=== PATIENT | female | born 1950 | race Caucasian/White ===

== ENCOUNTER 2024-11-01 08:21 | Outpatient (AMB) | payer MEDICARE, OTHER, SELFPAY ==
--- NOTE | 2024-11-01 08:31 | MHC.OFFVIS ---
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 Patient was previously seen at [facility], she was losing weight to proceed with surgery. Due to her insurance they were no longer able to accept patient. Patient reports her current pain level is a 7-8 out of 10 with her right knee is the worse. She has a history of gel and cortisone injections. States last cortisone injection was last November and provided her with temporary relief. She had gel injections years ago while living in [place]. She uses a walker with ambulation. Finds no relief with taking ibuprofen and Tylenol. She would like to discuss moving forward with knee surgery. Hx of spinal stenosis and a vein condition. 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 Conservative management, including gel and cortisone injections, has provided short-term relief, with the last injection being nearly a year ago. Despite efforts, the patient reports that her quality of life is heavily impacted, affecting her ability to complete daily activities such as walking long distances. The pain variably affects both knees, with the right knee predominantly identified as worse, although the patient's subjective experience of pain varies. She describes the pain as extending down the leg to the foot and persisting even while resting in bed. She has a history of hypertension and hypercholesterolemia, with no records of heart or lung disease, and her efforts are presently directed towards weight loss, as her BMI stands at 41, just above the surgical criteria threshold. [facility] Medical History (Updated 11/01/24 @ 09:54 by Estrada Guillen PA-C) Hyperlipidemia Hypertension Surgical History (Updated 11/01/24 @ 08:56 by ROBIN Rodriguez) Hx of removal of cyst Hx of cholecystectomy Social History (Updated 11/01/24 @ 08:57 by ROBIN Rodriguez) Patient Tobacco Use Status: Never used Tobacco Current occupational status: retired Review of Systems Const All systems reviewed & are unremarkable except as noted in HPI and below Physical Exam Vital Signs: BMI result Body Mass Index 41.3 Const General: cooperative and no acute distress Orientation/consciousness: patient oriented x3 Resp Effort & Inspection: normal respiratory effort and able to speak in complete sentences Cardio Peripheral pulses: Peripheral pulses 2+ throughout Neuro General: patient oriented x3 Results Reviewed Results Reviewed: Xrays were obtained in the office today and personally reviewed by me of ora knee show severe joint collapse and [id number]-[id number] contact in both knees with significant arthritis and patellar deterioration. Assessment & Plan Assessment & Plan (1) Osteoarthritis of knees, bilateral: Code(s): M17.0 - Bilateral primary osteoarthritis of knee Category: Medical Plan: The patient will continue efforts to decrease her BMI, aiming to meet criteria for joint replacement surgery. She will engage in pre-surgery rehabilitation therapy sessions to strengthen her musculoskeletal support system. Follow-up with Dr. Arnold is planned within the next three months to reassess her readiness for surgery. The patient recognizes the necessity of close monitoring of her blood pressure and cholesterol, which will be managed by her primary care provider. Given her living arrangements, post-surgery rehabilitation plans have been coordinated to ensure adequate care during recovery, particularly given existing household demands. Orders: Orders XR knee RT 3V Today M17.11 - Unilateral primary osteoarthritis, right knee PT Evaluation and Treatment Today M17.0 - Bilateral primary osteoarthritis of knee XR knee LT 3V Today M25.562 - Pain in left knee Coding Level of Care Code New Pt Level 4 (01405) Complex EM visit Add On G2211 Diagnoses Osteoarthritis of knees, bilateral M17.0
--- OUTSIDE RECORDS SUMMARY | 2024-11-01 08:47 | XMS_ITS ---
Author Organization [facility] [place] Address [address] [place] [address] Care Team Providers Care Composition Roll Maker And Cutter Name Role Phone Nicol Steve MD Primary Care Provider Joanna Brown Unavailable [phone] Allergies Allergen (clinical drug ingredient) Drug/Non Drug Allergy documented on EMR Reaction Allergy Type Onset Date Status Neosporin Unknown Drug Allergy Active Adhesive rash Allergy Active Latex Latex rash Allergy Active REASON FOR VISIT At Risk Footcare, Painful Nail(s) aggrevated by shoes and causing difficulty standing/walking. Medications Medication SIG (Take, Route, Frequency, Duration) Notes Start Date End Date Status amLODIPine Besylate 5 MG 1 tablet Orally Once a day for 30 day(s) Active Omeprazole 40 MG 1 capsule 30 minutes before morning meal Orally Once a day for 30 day(s) Active Mometasone Furoate 50 MCG/ACT 2 sprays in each nostril Nasally Once a day for 30 day(s) Active Pravastatin Sodium 40 MG 1 tablet Orally Once a day for 30 day(s) Active oxyCODONE-Acetaminophen 7.5-325 MG 1 tablet as needed Orally every 6 hrs Active Gabapentin 100 MG 1 capsule Orally Onc e a day Active Clobetasol Propionate 0.05 % 1 application Externally Twice a day for 10 day(s) Active Triamterene-HCTZ 37.5-25 MG 1 tablet in the morning Orally Once a day for 30 day(s) Active Sertraline HCl 50 MG 1 tablet Orally Onc e a day for 30 day(s) Active Zolpidem Tartrate ER 12.5 MG 1 tablet at bedtime as needed Orally Once a day Active Zepbound 2.5 MG/0.5ML 0.5 mL Subcutaneous Active Social History Tobacco Use: Social History Observation Description Date Details (start date - stop date) Never Smoker NA - NA Tobacco use other than smoking: Question Answer Notes Are you an other tobacco user? No Tobacco Control (Standard) Question Answer Notes Tobacco use: Nonsmoker Additional Findings: Tobacco non-user Current no nsmoker AUDIT-C (Standard) Question Answer Notes Did you have a drink contain ing alcohol in the past year? Yes How often did you have a dri nk containing alcohol in the past year? Monthly or less (1 point) How many drinks did you have on a typical day when you were drinking in the past year? 1 or 2 drinks (0 point) How often did you have six o r more drinks on one occasion in the past year? Less than monthly (1 point) Points 2 Interpretation Negative Vital Signs Height 5ft 6in in 10/18/2024 Weight 298 lbs 10/18/2024 BMI 48.09 kg/m2 10/18/2024 Blood pressure systolic 130 mm Hg 10/19/19 25 Blood pressure diastolic 84 mm Hg 025 Encounters Encounter Location Date Provider Diagnosis [facility] [address] [address] 10/18/2024 Joanna Pedro Atherosclerosis of artery of both lower extremities I70.203 ; Tinea unguium B35.1 ; Pain in toe of left foot M79.675 and Pain in toe of right foot M79.674 Assessments Encounter Date Diagnosis (ICD Code) Assessment Notes Treatment Notes Treatment Clinical Notes Section Notes 10/18/2024 Atherosclerosis of artery of both lower extremities (ICD-10 - I70.203) 10/18/2024 Tinea unguium (ICD-10 - B35.1) 10/18/2024 Pain in toe of left foot (ICD-10 - M79.675) 10/18/2024 Pain in toe of right foot (ICD-10 - M79.674) Plan Of Treatment Next Appt Details Follow Up: 2 Months, Reason: Provider Name:Joanna fernandez, 12/27/2024 02:45:00 PM, [address] [place] [address], [place], [address], Procedure Notes * Category Sub-Category Detail Notes Debride Nail 6-10 Nail debridement Due to the cl inical pathology outlined in the exam findings, performance of this nail treatment is medically necessary as its management by an unskilled/untrained nonprofessional would put this patients foot and overall health at risk. Therefore, debridement to affected nail(s), as described in exam ( TA, T1, T2, T3, T4, T5, T6, T7, T8, T9, ), was performed exclusively by the physician of record to reduce/remove overall nail length, girth, thickness, subungual debris, and necrotic tissue, by manual and/or electrical means through the use of a nail nipper and/or dremel-type air grinder, to a more viable healthy nail plate or bed tissue 6-10 nails in total. Silver nitrate was used for any petechial bleeding as necessary. Definitive antifungal treatment options, both pharmaceutical and surgical, have been reviewed and discussed with the patient. The patient solely prefers the use of intermittent/as needed professional debridement services for their nail condition and understands the need for additional periodic treatments to maintain effectiveness in symptomatic relief - 84030 Keratoma Treatment Parring or Cutting o f Benign Hyperkeratotic Lesion(s) (-57) More than 4 Lesions - Due to the at risk nature of the patients medical condition as documented in the exam findings, performance of this keratoderma treatment is medically necessary as its management by an unskilled/untrained nonprofessional would put this patients foot and overall health at risk. Therefore, the benign hyperkeratotic lesions, ( 6 ) in total, locations as stated and described in the exam ( SUB MTH (s), 1, 5, B/L, Heels B/L ), were pared, and/or cut utilizing a sterile 15 blade, tissue nippers, and/or power dremel instrumentation by the physician of record - 27186 Progress Notes * Caroline YBARRARamsesOB:[birth year] (74 yo F)Acc No.[id number]:10/18/2024 Progress Note Patient:?Mercedez YBARRA Provider:?Joanna Pedro DPM :1950???Age:74 Y???Sex:Female D ate:10/18/2024 Address:[address] [place] [address], [id number] Pcp:Nicol Steve MD Subjective: * Chief Complaints: * ???At Risk FootcarePainful N ail(s) aggrevated by shoes and causing difficulty standing/walking. * HPI: ???At Risk footcare:?Pt States Last PCP Visit:?Date?10/06/2024 * ROS:?General/Constitutional:?Nausea?denies.?Vomiting?denies.?Hunger Thirst?denies.?Loss appetite?denies.?Chills?denies.?Fatigue?denies.?Fever?denies.?Night Sweats?denies.?Unexplained weight loss?denies.?Unexplained weight gain?denies.?HEENTM:?Dentures?denies.?Dizziness?denies.?Glasses/contacts?admits.?Retinopathy?de nies.?Blurred/double vision?denies.?TMJ?denies.?Discharge/drainage?denies.?Implants?denies.?Sore throat?denies.?Dental implants?denies.?Hard of hearing ?denies.?Difficulty chewing/swallowing/speaking?denies.?Nose bleeds?denies.?Sore mouth?denies.?Respiratory:?On Oxygen?denies.?Pneumonia/pleurisy?denies.?Bronchitis?denies.?Emphysema?denies.?C oughing?denies.?Cough blood?denies.?Shortness of breath?denies.?Wheezing?denies.?Cardiovascular:?Pacemaker?denies.?MVP?denies.?WPW?denies.?CHF?denies.?Heart attack?denies.?Septal defect?denies.?Rapid beat?denies.?Chest pain ?denies.?Atrial Fib.?denies.?Murmur/Palpitations?denies.?Gastrointestinal:?Hemorrhoids?denies.?Stomach/Abdominal pain?denies.?Dark blood stool?denies.?Irritable bowel ?denies.?Constipation?alternating with diarrhea, admits.?Diarrhea?admits.?Hematology:?Swelling?admits.?Clots?denies.?Varicose Veins?denies.?Bruising?denies.?Bleeding problem?denies.?Genitourinary:?Blood urine?denies.?Frequent/Painfu/urination/bladder control?frequently, admits.?Kidney stones?denies.?Infection (UTI)?denies.?Nephropathy?denies.?sex trans dis (STD)?denies.?Prostate?denies.?Musculoskeletal:?Hammertoes?denies.?Bunions?denies.?Back Pain?denies.?Muscle Cramps/ Resting?denies.?Muscle cramps / walking?denies.?Generalized aches and pains?denies.?Weakness?denies.?Integ.:?Joyner?denies.?Scars?denies.?Corns/calluses?denies.?Ingrown nails?denies.?Painful nails?denies.?Open Sores?denies.?Rashes?denies.?Neurologic:?Difficulty sleeping?denies.?Brain disorder?denies.?Numbness?admits.?Balance trouble?denies.?Confusion?denies.?Fainting/blackouts?denies.?Tingling?denies.?Tr emors?denies.? * Medical History:? * Surgical History:?cholecyste ctomy 1993Breast Surgery, cyst * Hospitalization/Major Diagno stic Procedure:?Denies Past Hospitalization * Family History:?Mother: dece ased.?Father: .?Maternal aunt: colon cancer.? * Social History:?Tobacco Use:?Tobacco use other than smoking?Are you an other tobacco user??No ?Tobacco Control (Standard)?Tobacco use:?Nonsmoker ?Additional Findings: Tobacco non-user?Current nonsmoker ???Drugs/Alcohol:?Drugs?Have you used drugs other than those for medical reasons in the past 12 months??No ???Miscellaneous:?Caffeine: yes, frequency:, 1-2 cups decaff per day. ?Children: yes. ?Exercise: yes, walking. ?Marital status: . ?Occupation: Retired. ???Drug/Alcohol:?AUDIT-C (Standard)?Did you have a drink containing alcohol in the past year??Yes ?How often did you have a drink containing alcohol in the past year??Monthly or less (1 point) ?How many drinks did you have on a typical day when you were drinking in the past year??1 or 2 drinks (0 point) ?How often did you have six or more drinks on one occasion in the past year??Less than monthly (1 point) ?Points?2 ?Interpretation?Negative * Medications:?TakingZepbound 2.5 MG/0.5ML Solution Auto-injector 0.5 mL Subcutaneous Gabapentin 100 MG Capsule 1 capsule Orally Once a day Clobetasol Propionate 0.05 % Ointment 1 application Externally Twice a day Zolpidem Tartrate ER 12.5 MG Tablet Extended Release 1 tablet at bedtime as needed Orally Once a day Triamterene- HCTZ 37.5-25 MG Tablet 1 tablet in the morning Orally Once a day Sertraline HCl 50 MG Tablet 1 tablet Orally Once a day Pravastatin Sodium 40 MG Tablet 1 tablet Orally Once a day oxyCODONE-Acetaminophen 7.5-325 MG Tablet 1 tablet as needed Orally every 6 hrs Omeprazole 40 MG Capsule Delayed Release 1 capsule 30 minutes before morning meal Orally Once a day Mometasone Furoate 50 MCG/ACT Suspension 2 sprays in each nostril Nasally Once a day amLODIPine Besylate 5 MG Tablet 1 tablet Orally Once a day Medication List reviewed and reconciled with the patientTaking Zepbound 2.5 MG/0.5ML Solution Auto-injector 0.5 mL Subcutaneous Taking Gabapentin 100 MG Capsule 1 capsule Orally Once a day Taking Clobetasol Propionate 0.05 % Ointment 1 application Externally Twice a day Taking Zolpidem Tartrate ER 12.5 MG Tablet Extended Release 1 tablet at bedtime as needed Orally Once a day Taking Triamterene-HCTZ 37.5-25 MG Tablet 1 tablet in the morning Orally Once a day Taking Sertraline HCl 50 MG Tablet 1 tablet Orally Once a day Taking Pravastatin Sodium 40 MG Tablet 1 tablet Orally Once a day Taking oxyCODONE-Acetaminophen 7.5-325 MG Tablet 1 tablet as needed Orally every 6 hrs Taking Omeprazole 40 MG Capsule Delayed Release 1 capsule 30 minutes before morning meal Orally Once a day Taking Mometasone Furoate 50 MCG/ACT Suspension 2 sprays in each nostril Nasally Once a day Taking amLODIPine Besylate 5 MG Tablet 1 tablet Orally Once a day Medication List reviewed and reconciled with the patient * Allergies:?Adhesive: rashLat ex: rashNeosporinyes[Allergies Verified] Objective: * Vitals:?Ht: 5ft 6in, Wt: 298 , BMI: 48.09, Shoe size: 9W, BP: 130/84 mm Hg, Ht- cm: 167.64 cm, Wt-k.17 kg. * Examination: ???Vascular: ?DP PULSES (B):? 1/4, B/L.?PT PULSES (B):? 0/4, B/L.?CAPILLARY FILL TIME:? delayed, all digits, B/L.?TROPHIC CONDITION-TEXTURE/ELASTICITY/TURGOR/HAIR GROWTH (B):? decreased, B/L.?TEMPERTURE GRADIENT (C):? decreased, cool to cool, proximal to distal, B/L.?EDEMA (C):? 3/4, pitting, B/L, Feet, Ankle(s), Leg(s).?CLAUDICATION (C):?denies, B/L.?REST PAIN:?denies, B/L.?BHANU'S SIGN:?absent, B/L.?PALPABLE CORDS:?absent, B/L.?Nails: ?NAILS are:? Elongated, overgrown, dystrophic, lytic, greater than 3mm thick, discolored and friable with crumbly malodorous subungual debris, with pain on palpation,,TA, T1, T2, T3, T4, T5, T6, T7, T8, T9.?Dermatologic: ?SKIN FINDINGS:? Skin exam reveals Keratotic lesion(s) located at, Medial plantar?SUB MTH (s), 1, 5, B/L, Heels B/L.? Assessment: * Assessment: 1.?Atherosclerosis of artery of both lower extremities - I70.203???2.?Tinea unguium - B35.1 (Primary)???3.?Pain in toe of left foot - M79.675???4.?Pain in toe of right foot - M79.674??? Plan: * Treatment: * Procedures:?Debride Nail 6-10:?Nail debridement?Due to the clinical pathology outlined in the exam findings, performance of this nail treatment is medically necessary as its management by an unskilled/untrained nonprofessional would put this patients foot and overall health at risk. Therefore, debridement to affected nail(s), as described in exam ( TA, T1, T2, T3, T4, T5, T6, T7, T8, T9, ), was performed exclusively by the physician of record to reduce/remove overall nail length, girth, thickness, subungual debris, and necrotic tissue, by manual and/or electrical means through the use of a nail nipper and/or dremel-type air grinder, to a more viable healthy nail plate or bed tissue 6- 10 nails in total. Silver nitrate was used for any petechial bleeding as necessary. Definitive antifungal treatment options, both pharmaceutical and surgical, have been reviewed and discussed with the patient. The patient solely prefers the use of intermittent/as needed professional debridement services for their nail condition and understands the need for additional periodic treatments to maintain effectiveness in symptomatic relief - 40526.?Keratoma Treatment:?Parring or Cutting of Benign Hyperkeratotic Lesion(s)?(-57) More than 4 Lesions - Due to the at risk nature of the patients medical condition as documented in the exam findings, performance of this keratoderma treatment is medically necessary as its management by an unskilled/untrained nonprofessional would put this patients foot and overall health at risk. Therefore, the benign hyperkeratotic lesions, ( 6 ) in total, locations as stated and described in the exam (?SUB MTH (s),?1,?5,?B/L, Heels B/L?), were pared, and/or cut utilizing a sterile 15 blade, tissue nippers, and/or power dremel instrumentation by the physician of record - 00325.? * Procedure Codes:?92453 DEBRI DE NAIL, 6 OR MORE, Modifiers: XS 26214 TRIM SKIN LESIONS, OVER 4, Modifiers: XS , Q8 * Follow Up:?2 Months * Images: * Sign off status: Completed true * Provider:?Joanna Pedro, AZUCENA Date:? Generated for Lilliana trevizo/Christopher/Esperanza on:?11/01/2024 08:47 AM EDT History and Physical Notes * HPI (History of Present Illness) Category Sub-Category Detail Notes Category Not es At Risk footcare Pt States Last PCP Visit: Date: Examination Category Sub-Category Detail Notes Category Not es Dermatologic SKIN FINDINGS: Skin exam reveal s Keratotic lesion(s) located at, Medial plantar SUB MTH (s), 1, 5, B/L, Heels B/L Vascular DP PULSES (B): 1/4, B/L PT PULSES (B): 0/4, B/L CAPILLARY FILL TIME: delayed, all digits , B/L TEMPERTURE GRADIENT (C): decreased, cool to cool, proximal to distal, B/L TROPHIC CONDITION-TEXTURE/ELASTICITY/TURGOR/HAIR GROWTH (B): decreased, B/L EDEMA (C): 3/4, pitting, B/L, F eet, Ankle(s), Leg(s) CLAUDICATION (C): denies, B/L REST PAIN: denies, B/L BHANU'S SIGN: absent, B/L PALPABLE CORDS: absent, B/L Nails NAILS are: Elongated, overg rown, dystrophic, lytic, greater than 3mm thick, discolored and friable with crumbly malodorous subungual debris, with pain on palpation,,TA, T1, T2, T3, T4, T5, T6, T7, T8, T9
--- OUTSIDE RECORDS SUMMARY | 2024-11-01 08:47 | XMS_ITS ---
Author Name [facility] Organization Unknown Encounters Encounter Type Encounter Reason Primary Diagnosis Location Date Ambulatory [facility] [place] 09/10/2024 Ambulatory [facility] [place] 08/24/2024 Ambulatory [facility] [place] 08/24/2024
--- OUTSIDE RECORDS SUMMARY | 2024-11-01 08:47 | XMS_ITS ---
Author Organization [facility] [place] Address [address] [place] [address] Care Team Providers Care Spray Gun Operator Name Role Phone Nicol Steve MD Primary Care Provider Joanna Brown Unavailable [phone] Allergies Allergen (clinical drug ingredient) Drug/Non Drug Allergy documented on EMR Reaction Allergy Type Onset Date Status Neosporin Unknown Drug Allergy Active Adhesive rash Allergy Active Latex Latex rash Allergy Active REASON FOR VISIT At Risk Footcare, Painful Nail(s) aggrevated by shoes and causing difficulty standing/walking. Medications Medication SIG (Take, Route, Frequency, Duration) Notes Start Date End Date Status Pravastatin Sodium 40 MG 1 tablet Orally Once a day for 30 day(s) Active Sertraline HCl 50 MG 1 tablet Orally Onc e a day for 30 day(s) Active Triamterene-HCTZ 37.5-25 MG 1 tablet in the morning Orally Once a day for 30 day(s) Active Zolpidem Tartrate ER 12.5 MG 1 tablet at bedtime as needed Orally Once a day Active oxyCODONE-Acetaminophen 7.5-325 MG 1 tablet as needed Orally every 6 hrs Active Clobetasol Propionate 0.05 % 1 application Externally Twice a day for 10 day(s) Active Gabapentin 100 MG 1 capsule Orally Onc e a day Active amLODIPine Besylate 5 MG 1 tablet Orally Once a day for 30 day(s) Active Mometasone Furoate 50 MCG/ACT 2 sprays in each nostril Nasally Once a day for 30 day(s) Active Omeprazole 40 MG 1 capsule 30 minutes before morning meal Orally Once a day for 30 day(s) Active Social History Tobacco Use: Social History Observation Description Date Details (start date - stop date) Former Smoker NA - NA Tobacco Use/Smoking Question Answer Notes Are you a: former smoker Additional Findings: Tobacco Non-User Current no n-smoker Alcohol Screen Question Answer Notes Did you have a drink contain ing alcohol in the past year? Yes How often did you have a dri nk containing alcohol in the past year? 2 to 4 times a month (2 points) Points 2 Interpretation Negative Tobacco use other than smoking: Question Answer Notes Are you an other tobacco user? No Vital Signs Height 5ft 6in in 04/29/2024 Weight 300 lbs 04/29/2024 BMI 48.42 kg/m2 04/29/2024 Encounters Encounter Location Date Provider Diagnosis [facility] [address] [place] [address] 04/29/2024 Joanna Mayela Pain in toe of left foot M79.675 ; Atherosclerosis of artery of both lower extremities I70.203 ; Pain in toe of right foot M79.674 and Tinea unguium B35.1 Assessments Encounter Date Diagnosis (ICD Code) Assessment Notes Treatment Notes Treatment Clinical Notes Section Notes 04/29/2024 Pain in toe of left foot (ICD-10 - M79.675) 04/29/2024 Atherosclerosis of artery of both lower extremities (ICD-10 - I70.203) 04/29/2024 Pain in toe of right foot (ICD-10 - M79.674) 04/29/2024 Tinea unguium (ICD-10 - B35.1) Plan Of Treatment Next Appt Details Follow Up: 3 Months, Reason: Provider Name:Joanna fernandez, 12/27/2024 02:45:00 PM, [address] [facility], [place], [address], Procedure Notes * Category Sub-Category Detail Notes Debride Nail 6-10 Nail debridement Nail debridem ent performed extensively to reduce/remove overall nail length and girth, subungual debris, and necrotic tissue, by manual and electrical means with use of a nail nipper and/or dremel, to more viable healthy nail plate or bed tissue 6-10. Silver nitrate used for any petechial bleeding as necessary. Patient chooses, no pharmaceutical tx (31249) Keratoma Treatment Parring or Cutting o f Benign Hyperkeratotic Lesion(s) 73228 ( More than 4 Lesions ) - The Benign hyperkeratotic lesions, as described above were pared, and/or cut utilizing a sterile 15 blade, tissue nippers, and/or jacmel, Q8 Progress Notes * Gayle YBARRAOB:[birth year] (73 yo F)Acc No.[id number]:04/29/2024 Progress Note Patient:?Mercedez Ybarra Provider:?Joanna Pedro DPM :1950???Age:73 Y???Sex:Female D ate:04/29/2024 Address:[address] [place], [place] [address] Pcp:Nicol Steve MD Subjective: * Chief Complaints: * ???At Risk FootcarePainful N ail(s) aggrevated by shoes and causing difficulty standing/walking. * HPI: ???At Risk footcare:?Pt States Last PCP Visit:?Date?04/29/2024 * ROS:?General/Constitutional:?Nausea?denies.?Vomiting?denies.?Hunger Thirst?denies.?Loss appetite?denies.?Chills?denies.?Fatigue?denies.?Fever?denies.?Night Sweats?denies.?Unexplained weight loss?denies.?Unexplained [...] 1993Breast Surgery, cyst * Hospitalization/Major Diagno stic Procedure:?No Hospitalization History. * Family History:?Mother: dece ased.?Father: .?Maternal aunt: colon cancer.? * Social History:?Tobacco Use:?Tobacco Use/Smoking?Are you a:?former smoker ?Additional Findings: Tobacco Non-User?Current non-smoker ?Tobacco use other than smoking?Are you an other tobacco user??No ???Drugs/Alcohol:?Drugs?Have you used drugs other than those for medical reasons in the past 12 months??No ?Alcohol Screen?Did you have a drink containing alcohol in the past year??Yes ?How often did you have a drink containing alcohol in the past year??2 to 4 times a month (2 points) ?Points?2 ?Interpretation?Negative ???Miscellaneous:?Caffeine: yes, frequency:, 1-2 cups decaff per day. ?Children: yes. ?Exercise: yes, walking. ?Marital status: . ?Occupation: Retired. * Medications:?TakingGabapenti n 100 MG Capsule 1 capsule Orally Once a dayClobetasol Propionate 0.05 % Ointment 1 application Externally Twice a dayZolpidem Tartrate ER 12.5 MG Tablet Extended Release 1 tablet at bedtime as needed Orally Once a dayTriamterene-HCTZ 37.5-25 MG Tablet 1 tablet in the morning Orally Once a daySertraline HCl 50 MG Tablet 1 tablet Orally Once a dayPravastatin Sodium 40 MG Tablet 1 tablet Orally Once a dayoxyCODONE-Acetaminophen 7.5-325 MG Tablet 1 tablet as needed Orally every 6 hrsOmeprazole 40 MG Capsule Delayed Release 1 capsule 30 minutes before morning meal Orally Once a dayMometasone Furoate 50 MCG/ACT Suspension 2 sprays in each nostril Nasally Once a dayamLODIPine Besylate 5 MG Tablet 1 tablet Orally Once a dayMedication List reviewed and reconciled with the patientTaking Gabapentin 100 MG Capsule 1 capsule Orally Once a dayTaking Clobetasol Propionate 0.05 % Ointment 1 application Externally Twice a dayTaking Zolpidem Tartrate ER 12.5 MG Tablet Extended Release 1 tablet at bedtime as needed Orally Once a dayTaking Triamterene-HCTZ 37.5-25 MG Tablet 1 tablet in the morning Orally Once a dayTaking Sertraline HCl 50 MG Tablet 1 tablet Orally Once a dayTaking Pravastatin Sodium 40 MG Tablet 1 tablet Orally Once a dayTaking oxyCODONE-Acetaminophen 7.5-325 MG Tablet 1 tablet as needed Orally every 6 hrsTaking Omeprazole 40 MG Capsule Delayed Release 1 capsule 30 minutes before morning meal Orally Once a dayTaking Mometasone Furoate 50 MCG/ACT Suspension 2 sprays in each nostril Nasally Once a dayTaking amLODIPine Besylate 5 MG Tablet 1 tablet Orally Once a dayMedication List reviewed and reconciled with the patient * Allergies:?Adhesive: rashLat ex: rashNeosporinyes[Allergies Verified] Objective: * Vitals:?Ht: 5ft 6in, Wt:300, BMI:48.42, Shoe size: 9W, Ht-cm: 167.64 cm, Wt-k.08 kg. * Examination: ???Ophthalmology Referral: ?DIABETES EYE EXAM?Diabetic Retinopathy Screening:?Yes ?Findings of Diabetic Eye Exam:?no retinopathy?Vascular: ?DP PULSES(B):? 1/4, B/L.?PT PULSES(B):? 0/4, B/L.?CAPILLARY FILL TIME:? delayed, all digits, B/L.?TROPHIC CONDITION-TEXTURE/ELASTICITY/TURGOR/HAIR GROWTH(B):? decreased, B/L.?TEMPERTURE GRADIENT(C):? decreased, cool to cool, proximal to distal, B/L.?EDEMA(C):? 3/4, pitting, B/L, Feet, Ankle(s), Leg(s).?CLAUDICATION(C):?denies, B/L.?REST PAIN:?denies, B/L.?BHANU'S SIGN:?absent, B/L.?PALPABLE CORDS:?absent, B/L.?Nails: ?NAILS are:? Elongated, overgrown, dystrophic, lytic, greater than 3mm thick, discolored and friable with crumbly malodorous subungual debris, with pain on palpation, 1-5 B/L.?Dermatologic: ?SKIN FINDINGS:? Skin exam reveals Keratotic lesion(s) located at, Medial plantar, TA, T5, SUB MTH (s), 1, 5, B/L.? Assessment: * Assessment: 1.?Pain in toe of left foot - M79.675?2.?Atherosclerosis of artery of both lower extremities - I70.203 (Primary)?3.?Pain in toe of right foot - M79.674?4.?Tinea unguium - B35.1? Plan: * Treatment: * Procedures:?Debride Nail 6-10:?Nail debridement?Nail debridement performed extensively to reduce/remove overall nail length and girth, subungual debris, and necrotic tissue, by manual and electrical means with use of a nail nipper and/or dremel, to more viable healthy nail plate or bed tissue 6-10. Silver nitrate used for any petechial bleeding as necessary. Patient chooses, no pharmaceutical tx (95123).?Keratoma Treatment:?Parring or Cutting of Benign Hyperkeratotic Lesion(s)?63479 ( More than 4 Lesions ) - The Benign hyperkeratotic lesions, as described above were pared, and/or cut utilizing a sterile 15 blade, tissue nippers, and/or dremel, Q8.? * Procedure Codes:?91965 DEBRI DE NAIL, 6 OR MORE, Modifiers: XS 16756 TRIM SKIN LESIONS, OVER 4, Modifiers: XS , Q8 * Follow Up:?3 Months * Images: * Sign off status: Completed true * Provider:?Joanna Pedro DPM Date:?09/2023 Generated for Lilliana trevizo/Christophre/Esperanza on:?11/01/2024 08:47 AM EDT History and Physical Notes * HPI (History of Present Illness) Category Sub-Category Detail Notes Category Not es At Risk footcare Pt States Last PCP Visit: Date: Examination Category Sub-Category Detail Notes Category Not es Dermatologic SKIN FINDINGS: Skin exam reveal s Keratotic lesion(s) located at, Medial plantar, TA, T5, SUB MTH (s), 1, 5, B/L Ophthalmology Referral DIABETES EYE EXAM Diabeti c Retinopathy Screening:: Yes Findings of Diabetic Eye Exam:: no retin opathy Vascular DP PULSES (B): 1/4, B/L PT [...] crumbly malodorous subungual debris, with pain on palpation, 1-5 B/L
--- OUTSIDE RECORDS SUMMARY | 2024-11-01 08:48 | XMS_ITS | Patient Health Record ---
Author Organization [facility] [place] Address [address] [place] [address] Care Team Providers Care Aeronautical Project Engineer Name Role Phone Nicol Steve MD Primary Care Provider Joanna Brown Unavailable [phone] Allergies Allergen (clinical drug ingredient) Drug/Non Drug Allergy documented on EMR Reaction Allergy Type Onset Date Status Neosporin Unknown Drug Allergy Active Adhesive rash Allergy Active Latex Latex rash Allergy Active Reason For Referral No Information Medications Medication SIG (Take, Route, Frequency, Duration) Notes Start Date End Date Status Gabapentin 100 MG 1 capsule Orally Onc e a day Active Clobetasol Propionate 0.05 % 1 application Externally Twice a day for 10 day(s) Active amLODIPine Besylate 5 MG 1 tablet Orally Once a day for 30 day(s) Active Zepbound 2.5 MG/0.5ML 0.5 mL Subcutaneous Active Omeprazole 40 MG 1 capsule 30 minutes before morning meal Orally Once a day for 30 day(s) Active Mometasone Furoate 50 MCG/ACT 2 sprays in each nostril Nasally Once a day for 30 day(s) Active Pravastatin Sodium 40 MG 1 tablet Orally Once a day for 30 day(s) Active oxyCODONE-Acetaminophen 7.5-325 MG 1 tablet as needed Orally every 6 hrs Active Triamterene-HCTZ 37.5-25 MG 1 tablet in the morning Orally Once a day for 30 day(s) Active Sertraline HCl 50 MG 1 tablet Orally Onc e a day for 30 day(s) Active Zolpidem Tartrate ER 12.5 MG 1 tablet at bedtime as needed Orally Once a day Active Immunizations Vaccine Route Administration Date Status Commdahiana nts COVID-19 Pfizer BioNTech Vaccine Unknown 10/11/2020 Administered 1st vaccine Influenza Unknown 03/28/2022 Administered Social History Tobacco Use: Social History Observation [...] monthly (1 point) Points 2 Interpretation Negative Problems Problem Type SNOMED Code ICD Code Onset Dates Problem Status W/U Status Risk Notes Problem 694914468 Hammer toe of right foot (M20.41) Active confirmed Problem 733998891 Hammer toe of le ft foot (M20.42) Active confirmed Problem 47334329601179961 Atherosclerosi s of artery of both lower extremities (I70.203) Active confirmed Vital Signs Blood pressure diastolic 84 mm Hg 10/18/2024 Height 5ft 6in in 10/18/2024 Blood pressure systolic 130 mm Hg 10/18/2024 Weight 298 lbs 10/18/2024 BMI 48.09 kg/m2 10/18/2024 Encounters Encounter Location Date Provider Diagnosis [facility] [address] [place] [address] 12/16/2023 Joanna Perica Pain in toe of left foot M79.675 ; Atherosclerosis of artery of both lower extremities I70.203 ; Pain in toe of right foot M79.674 and Tinea unguium B35.[address] [address] 04/29/2024 Joanna Perica Pain in toe of left foot M79.675 ; Atherosclerosis of artery of both lower extremities I70.203 ; Pain in toe of right foot M79.674 and Tinea unguium B35.[address] [place] [address] 08/05/2024 Joanna Pedro Atherosclerosis of artery of both lower extremities I70.203 ; Tinea unguium B35.1 ; Pain in toe of left foot M79.675 and Pain in toe of right foot M79.[address] [address] 10/18/2024 Joanna Pedro Atherosclerosis of artery of both lower extremities I70.203 ; Tinea unguium B35.1 ; Pain in toe of left foot M79.675 and Pain in toe of right foot M79.[address] [address] 03/05/2024 Joanna Pedro Assessments Encounter Date Diagnosis (ICD Code) Assessment Notes Treatment Notes Treatment Clinical Notes Section Notes 12/16/2023 Pain in toe of left foot (ICD-10 - M79.675) 04/29/2024 Pain in toe of left foot (ICD-10 - M79.675) 08/05/2024 Atherosclerosis of artery of both lower extremities (ICD-10 - I70.203) 08/05/2024 Tinea unguium (ICD-10 - B35.1) 10/18/2024 Atherosclerosis of artery of both lower extremities (ICD-10 - I70.203) 08/05/2024 Pain in toe of left foot (ICD-10 - M79.675) 10/18/2024 Tinea unguium (ICD-10 - B35.1) 04/29/2024 Atherosclerosis of artery of both lower extremities (ICD-10 - I70.203) 12/16/2023 Atherosclerosis of artery of both lower extremities (ICD-10 - I70.203) 12/16/2023 Pain in toe of right foot (ICD-10 - M79.674) 04/29/2024 Pain in toe of right foot (ICD-10 - M79.674) 10/18/2024 Pain in toe of left foot (ICD-10 - M79.675) 08/05/2024 Pain in toe of right foot (ICD-10 - M79.674) 10/18/2024 Pain in toe of right foot (ICD-10 - M79.674) 04/29/2024 Tinea unguium (ICD-10 - B35.1) 12/16/2023 Tinea unguium (ICD-10 - B35.1) Plan Of Treatment Next Appt Details Provider Name:Joanna fernandez, 12/27/2024 02:45:00 PM, [address] [facility], [place], [address], Insurance Providers Payer Name Payer Address Payer Phone Subscriber Number Group Number Insured Name Patient Relationship to Insured Coverage Start Date Coverage End Date Medicare National [employer] [address] [place] [address] [id number] Mercedez Hirsch Self - patient is the insured [employer] [address] [place] [address] [id number] Mercedez Hirsch Self - patient is the insured for Life [address] [place] [id number] [phone] [id number] Mike Hirsch Spouse - patient is the spouse of the insured Medical (General) History Medical History History ICD Code osteoarthritis Back pain/Sciatica Cataracts Depression Diverticulosis Gall bladder problems Headaches High blood pressure Sciatica Measles Mumps Chicken pox Surgical History Surgery Date(Month/Year) cholecystectomy 1992 Breast Surgery, cyst
--- OUTSIDE RECORDS SUMMARY | 2024-11-01 08:48 | XMS_ITS ---
Author Organization [facility] [place] Address [address] [place] [address] Care Team Providers Care Bus Person Name Role Phone Nicol Steve MD Primary Care Provider Joanna Brown Unavailable [phone] Allergies Allergen (clinical drug ingredient) Drug/Non Drug [...] as needed Orally every 6 hrs Active amLODIPine Besylate 5 MG 1 tablet Orally Once a day for 30 day(s) Active Omeprazole 40 MG 1 capsule 30 minutes before morning meal Orally Once a day for 30 day(s) Active Mometasone Furoate 50 MCG/ACT 2 sprays in each nostril Nasally Once a day for 30 day(s) Active Triamterene-HCTZ 37.5-25 MG 1 tablet in the morning Orally Once a day for 30 day(s) Active Sertraline HCl 50 MG 1 tablet Orally Onc e a day for 30 day(s) Active Clobetasol Propionate 0.05 % 1 application Externally Twice a day for 10 day(s) Active Zolpidem Tartrate ER 12.5 MG 1 tablet at bedtime as needed Orally Once a day Active Gabapentin 100 MG 1 capsule Orally Onc e a day Active Zepbound 2.5 MG/0.5ML 0.5 [...] No Vital Signs Height 5ft 6in in 08/05/2024 Weight 298 lbs 08/05/2024 BMI 48.09 kg/m2 08/05/2024 Blood pressure systolic 130 mm Hg 08/05/19 25 Blood pressure diastolic 84 mm Hg 025 Encounters Encounter Location Date Provider Diagnosis [facility] [place] [address] 08/05/2024 Joanna Pedro Atherosclerosis of artery of both lower extremities I70.203 ; Tinea unguium B35.1 ; Pain in toe of left foot M79.675 and Pain in toe of right foot M79.674 Assessments Encounter Date Diagnosis (ICD Code) Assessment Notes Treatment Notes Treatment Clinical Notes Section Notes 08/05/2024 Atherosclerosis of artery of both lower extremities (ICD-10 - I70.203) 08/05/2024 Tinea unguium (ICD-10 - B35.1) 08/05/2024 Pain in toe of left foot (ICD-10 - M79.675) 08/05/2024 Pain in toe of right foot (ICD-10 - M79.674) Plan Of Treatment Next Appt Details Follow Up: 3 Months, Reason: Provider Name:Joanna fernandez, 12/27/2024 02:45:00 PM, [address], [place], [address], Procedure Notes * Category Sub-Category Detail Notes [...] use of a nail nipper and/or dremel-type tooth grinder, to a more viable healthy nail [...] to maintain effectiveness in symptomatic relief - 78055 Keratoma Treatment Parring or Cutting o f [...] instrumentation by the physician of record - 17808 Progress Notes * Gayle YBARRAOB:[birth year] (73 yo F)Acc No.[id number]:08/05/2024 Progress Note Patient:?Mercedez YBARRA Provider:?Joanna Pedro DPM :1950???Age:73 Y???Sex:Female D ate:08/05/2024 Address:[address] [place], [place] [id number] Pcp:Nicol Steve MD Subjective: * Chief Complaints: * ???At Risk FootcarePainful N ail(s) aggrevated by shoes and causing difficulty standing/walking. * HPI: ???At Risk footcare:?Pt States Last PCP Visit:?Date?04/29/2024 * ROS:?General/Constitutional:?Nausea?denies, denies.?Vomiting?denies, denies.?Hunger Thirst?denies, denies.?Loss appetite?denies, denies.?Chills?denies, denies.?Fatigue?denies, denies.?Fever?denies, denies.?Night Sweats denies, denies.?Unexplained weight loss?denies, denies.?Unexplained weight gain?denies, denies.?HEENTM:?Dentures?denies, denies.?Dizziness?denies, denies.?Glasses/contacts?admits, admits.?Retinopathy?denies, denies.?Blurred/double vision?denies, denies.?TMJ?denies, denies.?Discharge/drainage?denies, denies.?Implants?denies, denies.?Sore throat?denies, denies.?Dental implants?denies, denies.?Hard of hearing ?denies, denies.?Difficulty chewing/swallowing/speaking?denies, denies.?Nose bleeds?denies, denies.?Sore mouth?denies, denies.?Respiratory:?On Oxygen?denies, denies.?Pneumonia/pleurisy?denies, denies.?Bronchitis?denies, denies.?Emphysema?denies, denies.?Coughing?denies, denies.?Cough blood?denies, denies.?Shortness of breath?denies, denies.?Wheezing?denies, denies.?Cardiovascular:?Pacemaker?denies, denies.?MVP?denies, denies.?WPW?denies, denies.?CHF?denies, denies.?Heart attack?denies, denies.?Septal defect?denies, denies.?Rapid beat?denies, denies.?Chest pain ?denies, denies.?Atrial Fib.?denies, denies.?Murmur/Palpitations?denies, denies.?Gastrointestinal:?Hemorrhoids?denies, denies.?Stomach/Abdominal pain?denies, denies.?Dark blood stool?denies, denies.?Irritable bowel ?denies, denies.?Constipation?alternating with diarrhea, admits, alternating with diarrhea, admits. Diarrhea?admits, admits.?Hematology:?Swelling?admits, admits.?Clots?denies, denies.?Varicose Veins?denies, denies.?Bruising?denies, denies.?Bleeding problem?denies, denies.?Genitourinary:?Blood urine?denies, denies.?Frequent/Painfu/urination/bladder control?frequently, admits, frequently, admits.?Kidney stones?denies, denies.?Infection (UTI)?denies, denies.?Nephropathy?denies, denies.?sex trans dis (STD)?denies, denies.?Prostate?denies, denies.?Musculoskeletal:?Hammertoes?denies, denies.?Bunions?denies, denies.?Back Pain?denies, denies.?Muscle Cramps/ Resting?denies, denies.?Muscle cramps / walking?denies, denies.?Generalized aches and pains?denies, denies.?Weakness?denies, denies.?Integ.:?Joyner?denies, denies.?Scars?denies, denies.?Corns/calluses?denies, denies.?Ingrown nails?denies, denies.?Painful nails?denies, denies.?Open Sores?denies, denies.?Rashes?denies, denies.?Neurologic:?Difficulty sleeping?denies, denies.?Brain disorder?denies, denies.?Numbness?admits, admits.?Balance trouble?denies, denies.?Confusion?denies, denies.?Fainting/blackouts?denies, denies.?Tingling?denies, denies.?Tremors?denies, denies.? * Medical History:? * Surgical History:?cholecyste ctomy [...] walking. ?Marital status: . ?Occupation: Retired. * Medications:?TakingZepbound 2.5 MG/0.5ML Solution Auto-injector 0.5 [...] rashNeosporinyes[Allergies Verified] Objective: * Vitals:?Ht: 5ft 6in, Wt:298, BMI:48.09, Shoe size: 9W, BP:130/84mm Hg, Ht-cm: 167.64 cm, Wt-k.17 kg. * Examination: ???Vascular: [...] 5, B/L, Heels B/L.? Assessment: * Assessment: 1.?Tinea unguium - B35.1 (Pr imary)???2.?Atherosclerosis of artery of both lower extremities - I70.203???3.?Pain in toe of left foot - M79.675???4.?Pain [...] use of a nail nipper and/or dremel-type tooth grinder, to a more viable healthy nail [...] to maintain effectiveness in symptomatic relief - 89740.?Keratoma Treatment:?Parring or Cutting of Benign Hyperkeratotic Lesion(s)?(-57) [...] instrumentation by the physician of record - 08581.? * Procedure Codes:?36922 DEBRI DE NAIL, 6 OR MORE, Modifiers: XS 85214 TRIM SKIN LESIONS, OVER 4, Modifiers: XS , Q8 * Follow Up:?3 Months * Images: * Sign off status: Completed true * Provider:?Joanna Pedro DPM Date:?03/2025 Generated for Lilliana trevizo/Christopher/Esperanza on:?11/01/2024 08:47 AM EDT History and Physical Notes * HPI (History of Present Illness) Category Sub-Category Detail Notes Category Not es At Risk footcare Pt States Last PCP Visit: Date: 4 Examination Category Sub-Category Detail Notes Category Not [...]
[2024-11-01 08:52] VITALS: BMI 41.3
== END 2024-11-01 09:26 | disposition home or self-care (01) ==
LOC: HO.HOS 08:21
PROVIDERS: Visit Provider Physician Assistant
DX: M17.0 Bilateral primary osteoarthritis of knee (principal)
CPT/HCPCS: 99203; G2211

== ENCOUNTER 2024-11-01 08:21 | Outpatient (REF) | payer MEDICARE, OTHER, SELFPAY ==
--- NOTE | ~2024-11-01 | XR_ITS ---
EXAMINATION: XR KNEE, LEFT CLINICAL INFORMATION: M25.562 - Pain in left knee COMPARISON: None available. TECHNIQUE: Three views of the left knee. FINDINGS: Joint space narrowing involving the medial lateral compartment and the patellofemoral joint. Sclerotic margins of the articular surface of the medial femoral condyle and medial tibial plateau. Marginal osteophyte formation. No acute cortical disruption or gross malalignment. No gross suprapatellar bursa joint effusion. XR/XR knee LT 3V IMPRESSION: Moderate to severe tricompartmental osteoarthrosis. Electronically signed by: Ray Samano MD 11/01/2024 02:31 PM EDT
--- NOTE | ~2024-11-01 | XR_ITS ---
EXAMINATION: XR KNEE 3 VIEWS RIGHT HISTORY: M17.11 - Unilateral primary osteoarthritis, right knee COMPARISON: Correlation is made with the standing AP view of the right knee performed at the same sitting. FINDINGS: Lateral and sunrise patellar views of the right are submitted. Osseous mineralization is normal. There is no fracture or dislocation. There is severe tricompartmental osteoarthritis, with joint space narrowing and osteophyte formation. There is a moderate suprapatellar joint effusion. There are probable loose bodies in the posterior aspect of the joint space. XR/XR knee RT 3V IMPRESSION: Moderate joint effusion. Severe tricompartmental osteoarthritis. Electronically signed by: Ishmael Shabazz MD 11/01/2024 03:28 PM EDT
--- OUTSIDE RECORDS SUMMARY | 2024-11-01 09:10 | XMS_ITS | Clinical Summary ---
Author Organization [facility] Address [address] [place] [address] Phone Care Team Providers Care Chlorinator Operator Name Role Phone Yogi Sawyer MD Primary Care Provider [phone] Allergies Active Allergy Reactions Criticality Noted Date Comments Adhesive Unknown 01/15/2021 Latex Unknown 01/15/2021 Voltthpc-Xxjlfqangn-Zudwzuuqr Unknown 2020 Medications Medication Sig Dispensed Refills Start Date End Date Status acetaminophen (TYLENOL) 500 MG tablet Take 500 mg by mouth every 6 (six) hours as needed for pain (specific location in comments). Active zolpidem (AMBIEN CR) 12.5 MG CR tablet 1 tablet at bedtime as needed Active triamterene-hydroCHLOR Othiazide (DYAZIDE) 37.5-25 mg per capsule 03/05/2022 Ac tive sertraline (ZOLOFT) 50 MG tablet Take 50 mg by mouth. 11/20/2021 Active pravastatin (PRAVACHOL) 40 MG tablet 02/28/2022 Active omeprazole (PRILOSEC) 40 MG capsule Take by mouth daily. 02/21/2022 Active clobetasol (TEMOVATE) 0.05 % ointment 1 application. 11/20/2021 Activ e aspirin 81 MG EC tablet Take 81 mg by mouth. Every other day 02/01/2021 Active amLODIPine (NORVASC) 5 MG tablet 03/03/2022 Active fluticasone propionate (FLONASE) 50 mcg/actuation nasal spray 1 spray by Nasal route daily. Active therapeutic multivitamin tablet Take 1 tablet by mouth daily. Active cholecalciferol (VITAMIN D3) 5,000 unit tablet Take 1,000 Units by mouth daily. Active mv,carli,iron,mn/folic acid/chol (SVKP-JNFK-ECGQM, PABA, ORAL) Take by mouth. Active oxyCODONE 5 MG immediate release tablet Take 1 tablet (5 mg total) by mouth nightly at bedtime as needed. Partial fill ok 7 tablet 04/30/2022 Active ibuprofen (ADVIL,MOTRIN) 800 MG tablet Take 800 mg by mouth 3 (three) times a day. 05/23/2022 Active gabapentin (NEURONTIN) 100 MG capsule Take 100 mg by mouth. 06/05/2022 Active Active Problems Problem Noted Date Diagnosed Date Encounter for preoperative s creening laboratory testing for COVID-19 virus Social History Tobacco Use Types Packs/Day Years Used Date Smoking Tobacco: Former Cigarettes 0.5 20 Smokeless Tobacco: Never Alcohol Use Standard Drinks/Week Comments Yes 0 (1 standard drink = 0.6 oz pur e alcohol) Education Answer Date Recorded Are you interested in more education? Not on christen e 11/23/2022 Are you concerned about learning? Not on file 11/23/2022 No 11/23/2022 No 11/23/2022 Digital Access Answer Date Recorded No 12/21/2022 No 12/21/2022 No 12/21/2022 Reliable internet access at home? Not on file 12/21/2022 Device with a working camera? Not on file Sex and Gender Information Value Date Recorded Sex Assigned at Female 02/22/2022 7:06 PM EDT Gender Identity Female 02/22/2022 7:06 PM EDT Sexual Orientation Choose not to disclose 2021 7:06 PM EDT Last Filed Vital Signs Vital Sign Reading Time Taken Comments Blood Pressure 164/62 03/22/2022 2:00 PM EDT Pulse 76 03/22/2022 2:00 PM EDT Temperature 36.2 ??C (97.2 ??F) 03/22/2022 1:45 PM ED T Respiratory Rate 15 03/22/2022 2:00 PM EDT Oxygen Saturation 96% 03/22/2022 2:15 PM EDT Inhaled Oxygen Concentration - - Weight 142.9 kg (315 lb) 03/22/2022 10:03 AM EDT Height 167.6 cm (5' 6 ) 03/22/2022 10:03 AM EDT Body Mass Index 50.84 03/22/2022 10:03 AM EDT Plan of Treatment Health Maintenance Due Date Last Done Comments LIPID PANEL 1948 POTASSIUM LEVEL 1948 DEPRESSION SCREENING 1960 SMOKING Hx and SMOKELESS TOBACCO SCREENING 1961 HEPATITIS C SCREENING 1966 ZOSTER VACCINES (2 of 3) 02/02/2013 12/08/2012 OSTEOPOROSIS SCREENING INITIAL (ONE-TIME) 2013 RSV VACCINE (1 - 1-dose 75+ series) 2023 Adult Td,Tdap Booster 10/26/2023 10/25/2013 INFLUENZA VACCINE (#1) 2024 , 04/05/2020, 04/14/2019, Additional history exists COVID-19 VACCINE ( season) 2024 08/13/2021 PNEUMOCOCCAL VACCINES (50+ years) Completed 02/21/2020, 06/26/2016, 10/25/2013 HEPATITIS A VACCINES Aged Out No long er eligible based on patient's age to complete this topic HIB VACCINES Aged Out No longer eligi ble based on patient's age to complete this topic MENINGOCOCCAL VACCINES (ACWY) Aged Out No longer eligible based on patient's age to complete this topic Medical Devices Implanted Type Area Sales Broker Device Identifier Shelf Expiration Date Model / Serial / Lot Clip Clip Right: Breast Radius Plate 3 Hole Bone Distal Volar Radial Geminus Titanium Rt Narrow - [id number] Implanted:Qty: 1 on 03/22/2022 by Chloe Rene MD at [facility] Right: Wrist [employer]LET[employer] [facility] [id number]-[id number] L / / Peg Bone 18x2.3mm Threaded Geminus Locking - [id number] Implanted:Qty: 5 on 03/22/2022 by Chloe Rene MD at [facility] Right: Wrist [employer] [facility] [id number] -[id number] / / Peg Bone 2.3mmx20 Threaded Geminus Locking - [id number] Implanted:Qty: 1 on 03/22/2022 by Chloe Rene MD at [facility] Right: Wrist [employer] [id number] -[id number] / / Screw Bone 10x3.5mm L Locking Cortical Geminus Titanium Fossa Specific Plating System - [id number] Implanted:Qty: 1 on 03/22/2022 by Chloe Rene MD at [facility] Right: Wrist [employer] [id number] -[id number] / / Screw Bone 12x3.5mm L Locking Cortical Geminus Titanium Fossa Specific Plating System - [id number] Implanted:Qty: 1 on 03/22/2022 by Chloe Rene MD at [facility] Right: Wrist [employer] [id number] -[id number] / / Screw Bone 12x3.5mm L Polyaxial Non Locking Compression Cortical Geminus Titanium Fossa Specific Plating - [id number] Implanted:Qty: 1 on 03/22/2022 by Chloe Rene MD at [facility] Right: Wrist [employer] [id number] -[id number] / / Advance Directives For more information, please contact: [phone] (9AM - 5PM [facility], Friday-Friday) Documents on File Type Date Recorded Patient Tack Welder Expl anation Healthcare Proxy 03/25/2022 2:49 PM Care Teams Chlorinator Operator Relationship Specialty Start Date End Date Yogi Sawyer MD PCP - General Internal Medicine 02/22/22 Additional Source Comments The information contained in this document represents components of the legal health record. It is not the complete legal health record.[facility]
--- OUTSIDE RECORDS SUMMARY | 2024-11-01 09:10 | XMS_ITS | Encounter Summary ---
Author Organization [facility] Address [address] [place] [address] Phone Care Team Providers Care Pharmacology Professor Name Role Phone Yogi Sawyer MD Primary Care Provider [phone] Encounter Details Date Type Department Care Team (Late st Contact Info) Description 03/05/2022 Ancillary Orders [facility] Medicine [address] [place] [address] Nicol Valenzuela PA-C [address] [place] [address] Orthopedics & Sports Medicine, [facility] [place], [place] [id number] Social History Tobacco Use Types Packs/Day Years Used Date Smoking Tobacco: Never Alcohol Use Standard Drinks/Week Comments Not Currently 0 (1 standard drink = 0.6 oz pur e alcohol) Sex and Gender Information Value Date Recorded Sex Assigned at Female 02/22/2022 7:06 PM EDT Gender Identity Female 02/22/2022 7:06 PM EDT Sexual Orientation Choose not to disclose 2021 7:06 PM EDT documented as of this encounter Plan of Treatment Not on file documented as of this encounter Visit Diagnoses Not on filedocumented in this encounter Care Teams Pharmacology Professor Relationship Specialty Start Date End Date Yogi Sawyer MD PCP - General Internal Medicine 02/22/22 documented as of this encounter Additional Source Comments The information contained in this document represents components of the legal health record. It is not the complete legal health record.[facility]
--- OUTSIDE RECORDS SUMMARY | 2024-11-01 09:10 | XMS_ITS | Encounter Summary ---
Author Organization [facility] Address [address] [address] Phone Care Team Providers Care Saw Edge Fuser Circular Name Role Phone Yogi Sawyer MD Primary Care Provider [phone] Encounter Details Date Type Department Care Team (Late st Contact Info) Description 03/22/2022 Procedure Pass OR Admitting Dept - Virtual Department [address] [place] [address] Social History Tobacco Use Types Packs/Day Years [...] on filedocumented in this encounter Care Teams Saw Edge Fuser Circular Relationship Specialty Start Date End Date Yogi Sawyer MD PCP - General Internal Medicine 02/22/22 documented as of this encounter Additional Source Comments The information contained in this document represents components of the legal health record. It is not the complete legal health record.[facility]
--- OUTSIDE RECORDS SUMMARY | 2024-11-01 09:10 | XMS_ITS | Encounter Summary ---
Author Organization [facility] Address [address] [place] [address] Phone Care Team Providers Care Rug Frame Mounter Name Role Phone Yogi Sawyer MD Primary Care Provider [phone] Encounter Details Date Type Department Care Team (Late st Contact Info) Description 03/05/2022 Ancillary Orders [address] [address] Nicol Valenzuela PA-C [address] [place] [address] Orthopedics & Sports Medicine, [place] [address] [email or web address] Injury of left wrist, subsequent encounter Social History Tobacco Use Types Packs/Day Years [...] on file documented as of this encounter Results * XR WRIST 2 VIEWS (RIGHT) (03/05/2022 9:48 AM EDT) Narrative SYSTEMGENERATED, DOCUMENTATION - 03/05/2022 9:48 AM EDT This image report has been auto-finalized and has not been read by a Radiologist. Interpretation has been included in the provider encounter note for this date of service. Nicol Valenzuela PA-C IMG XR UPPER EXTREMITY documented in this encounter Visit Diagnoses Diagnosis Injury of left wrist, subsequent encounter Injury of left wrist, subsequent encounter documented in this encounter Care Teams Rug Frame Mounter Relationship Specialty Start Date End Date Yogi Sawyer MD PCP - General Internal Medicine 02/22/22 documented as of this encounter Additional Source Comments The information contained in this document represents components of the legal health record. It is not the complete legal health record.[facility]
== END 2024-11-01 08:22 | disposition home or self-care (01) ==
LOC: HO.HOSX 08:21
PROVIDERS: Visit Provider Physician Assistant
DX: M17.0 Bilateral primary osteoarthritis of knee (principal); M25.562 Pain in left knee
CPT/HCPCS: 73562; 99202

== ENCOUNTER → 2024-11-01 08:38 | Outpatient (BNV) | payer MEDICARE, OTHER, SELFPAY | PROVIDERS: Visit Provider Radiology Diagnostic Radiology | DX: M25.461 Effusion, right knee (principal); M17.0 Bilateral primary osteoarthritis of knee | CPT/HCPCS: 73562 ==

== ENCOUNTER 2024-12-06 09:41 | Outpatient (AMB) | payer MEDICARE, OTHER, SELFPAY ==
[2024-12-06 09:43] VITALS: BMI 41.3
--- NOTE | 2024-12-06 09:43 | MHC.OFFVIS ---
Vital Signs 12/06/24 09:43 Height 5 ft 6 in Weight 256 lb BMI 41.3 Intake Visit Reasons: OV- Discuss Right TKA Intake Note: Mercedez is a 74 year old female who presents today for a follow up of her Bilateral Knee OA. She was last seen with [facility] where she reported that she was previously seen with [facility] who requires that she loose weight prior to surgical intervention. History of Cortisone and Gel injections with minimal relief. Pain in both of her knees intermittently but the right is worse than the left. Allergies house dust Allergy (Verified 12/06/24 09:44) Unknown latex Allergy (Verified 12/06/24 09:44) Redness of Skin HPI HPI OV- Discuss Right TKA: Details: Mercedez is a 74 year old female who presents today for a follow up of her Bilateral Knee OA. She was last seen with [facility] where she reported that she was previously seen with [facility] who requires that she loose weight prior to surgical intervention. History of Cortisone and Gel injections with minimal relief. Pain in both of her knees intermittently but the right is worse than the left. She uses a walker to ambulate and states that stairs are difficult. She describes feeling unable to engage in exercise activity or regular ambulation to because of right knee pain. She states past treatments have been unhelpful. [facility] Medical History Hyperlipidemia Hypertension Surgical History Hx of removal of cyst Hx of cholecystectomy Social History Patient Tobacco Use Status: Never used Tobacco Current occupational status: retired Physical Exam Vital Signs: BMI result Body Mass Index 41.3 Extrem Other: On physical exam she has severe medial sided tenderness to palpation with a markedly antalgic gait. She has 10-125 degrees motion on the right with stable to varus and valgus stress. She has a 2+ dorsalis pedis pulse in his firing her TA/GC/EHL. Skin is intact to light touch. Results Reviewed Results Reviewed: I personally reviewed relevant radiographs. Severe tricompartmental osteoarthritis of the bilateral knees Assessment & Plan Assessment & Plan (1) Osteoarthritis of knees, bilateral: Code(s): M17.0 - Bilateral primary osteoarthritis of knee Category: Medical Plan: This is a 74-year-old woman who has severe osteoarthritis of the right knee. This prevents her from walking comfortably in being able to exercise. She understands the importance of activity and would like to be more active. She has not benefitted from injections in the past. Her weight is borderline but acceptable for arthroplasty and I recommend right knee replacement. I explained the procedure to her. I reviewed the risks, benefits and alternatives of surgery and she expressed understanding. I explained the risk of infection, stiffness, need for additional surgery as well as medical complications associated with surgery. She expressed understanding and we will proceed forward accordingly. Coding Level of Care Code Est Pt Level 4 (61340) Diagnoses Osteoarthritis of knees, bilateral M17.0
--- OUTSIDE RECORDS SUMMARY | 2024-12-06 10:02 | XMS_ITS ---
Author [facility] [place] Address [address] [place] [address] Care Team Providers Care Deputy Director Of Nursing Name Role Phone Nicol Steve MD Primary Care Provider Joanna Brown Unavailable [phone] Allergies Allergen (clinical drug ingredient) Drug/Non Drug [...] 04/29/2024 Encounters Encounter Location Date Provider Diagnosis [facility] [place] [address] [place] [address] 04/29/2024 Joanna Mayela Pain in toe of [...] Provider Name:Joanna fernandez, 12/27/2024 02:45:00 PM, [address] [facility], [place], [address], Procedure Notes * Category Sub-Category Detail Notes [...] as necessary. Patient chooses, no pharmaceutical tx (08665) Keratoma Treatment Parring or Cutting o f Benign Hyperkeratotic Lesion(s) 45973 ( More than 4 Lesions ) - The Benign hyperkeratotic lesions, as described above were pared, and/or cut utilizing a sterile 15 blade, tissue nippers, and/or jacmel, Q8 Progress Notes * Gayle YBARRAOB:[birth year] (73 yo F)Acc No.[id number]:04/29/2024 Progress Note Patient:?Mercedez Ybarra Provider:?Joanna Pedro DPM :1950???Age:73 Y???Sex:Female D ate:04/29/2024 Address:[address] [place], [place] [id number] Pcp:Nicol Steve MD Subjective: * Chief Complaints: [...] as necessary. Patient chooses, no pharmaceutical tx (73377).?Keratoma Treatment:?Parring or Cutting of Benign Hyperkeratotic Lesion(s)?06443 ( More than 4 Lesions ) - The Benign hyperkeratotic lesions, as described above were pared, and/or cut utilizing a sterile 15 blade, tissue nippers, and/or dremel, Q8.? * Procedure Codes:?31846 DEBRI DE NAIL, 6 OR MORE, Modifiers: XS 04349 TRIM SKIN LESIONS, OVER 4, Modifiers: XS , Q8 * Follow Up:?3 Months * Images: * Sign off status: Completed true * Provider:?Joanna Pedro DPM Date:?09/2023 Generated for Lilliana trevizo/Christopher/Esperanza on:?12/06/2024 10:02 AM EDT History and Physical Notes * [...]
--- OUTSIDE RECORDS SUMMARY | 2024-12-06 10:02 | XMS_ITS | Encounter Summary ---
Author Organization [facility] Address [address] [place] [address] [place] [address] Phone Care Team Providers Care Travertine Installer Name Role Phone Yogi Sawyer MD Primary Care Provider [phone] Encounter Details Date Type Department Care Team (Late st Contact Info) Description 03/05/2022 Ancillary Orders [address] [address] Nicol Valenzuela PA-C [address] [place] [address] Orthopedics & Sports Medicine, [place] [address] [email or web address] Injury of left wrist, subsequent encounter Social History Tobacco Use Types Packs/Day Years Used Date Smoking Tobacco: Never Alcohol Use Standard Drinks/Week Comments Not Currently 0 (1 standard drink = 0.6 oz pur e alcohol) Comments Unknown Sex and Gender Information Value Date Recorded Sex Assigned at Female 02/22/2022 7:06 PM EDT Legal Sex Female 2:23 PM EDT Gender Identity Female 02/22/2022 7:06 [...] service. Nicol Valenzuela PA-C IMG XR UPPER EXTREMI TY Final Result documented in this encounter Visit Diagnoses Diagnosis Injury of left wrist, subsequent encounter Injury of left wrist, subsequent encounter documented in this encounter Care Teams Travertine Installer Relationship Specialty Start Date End Date Yogi Sawyer MD PCP - General Internal Medicine 02/22/22 documented as of this encounter Additional Source Comments The information contained in this document represents components of the legal health record. It is not the complete legal health record.[facility]
--- OUTSIDE RECORDS SUMMARY | 2024-12-06 10:02 | XMS_ITS ---
Author [facility] [place] Address [address] [place] [address] Care Team Providers Care Poly Operator Name Role Phone Nicol Steve MD Primary Care Provider Joanna Brown Unavailable [phone] Allergies Allergen (clinical drug ingredient) Drug/Non Drug [...] 025 Encounters Encounter Location Date Provider Diagnosis [facility] [address] [address] 10/18/2024 Joanna Pedro Atherosclerosis of artery of [...] Reason: Provider Name:Joanna fernandez, 12/27/2024 02:45:00 PM, [address] [place] [address], [place], [address], Procedure Notes * Category Sub-Category Detail Notes [...] use of a nail nipper and/or dremel-type stopper grinder, to a more viable healthy nail [...] to maintain effectiveness in symptomatic relief - 73051 Keratoma Treatment Parring or Cutting o f [...] instrumentation by the physician of record - 64226 Progress Notes * Caroline YBARRARamsesOB:[birth year] (74 yo F)Acc No.[id number]:10/18/2024 Progress Note Patient:?Mercedez YBARRA Provider:?Joanna Pedro DPM :1950???Age:74 Y???Sex:Female D ate:10/18/2024 Address:[address] [place] [address], [id number] Pcp:Nicol Steve MD Subjective: * Chief Complaints: [...] use of a nail nipper and/or dremel-type stopper grinder, to a more viable healthy nail [...] to maintain effectiveness in symptomatic relief - 47568.?Keratoma Treatment:?Parring or Cutting of Benign Hyperkeratotic Lesion(s)?(-57) [...] instrumentation by the physician of record - 47035.? * Procedure Codes:?52158 DEBRI DE NAIL, 6 OR MORE, Modifiers: XS 09584 TRIM SKIN LESIONS, OVER 4, Modifiers: XS , Q8 * Follow Up:?2 Months * Images: * Sign off status: Completed true * Provider:?Joanna Pedro, AZUCENA Date:? Generated for Lilliana trevizo/Christopher/Esperanza on:?12/06/2024 10:02 AM [...]
--- OUTSIDE RECORDS SUMMARY | 2024-12-06 10:02 | XMS_ITS | Clinical Summary ---
Author Organization [facility] Address [address] [place] [address] Phone Care Team Providers Care Log Washer Name Role Phone Yogi Sawyer MD Primary Care Provider [phone] Allergies Active Allergy Reactions Criticality Noted Date Comments Adhesive Unknown 01/15/2021 Latex Unknown 01/15/2021 Qhssjlho-Vysejpecfr-Uutawdznf Unknown 2020 Medications acetaminophen (TYLENOL) 500 MG tablet Take 500 mg by mouth every 6 (six) hours as needed for pain (specific location in comments). Active zolpidem (AMBIEN CR) 12.5 MG CR tablet 1 tablet at bedtime as needed Active triamterene-hydro CHLOROthiazide (DYAZIDE) 37.5-25 mg per capsule 2 Active sertraline (ZOLOFT) 50 MG tablet Take 50 mg by mouth. 2 Active pravastatin (PRAVACHOL) 40 MG tablet 2 Active omeprazole (PRILOSEC) 40 MG capsule Take by mouth daily. 2 Active clobetasol (TEMOVATE) 0.05 % ointment 1 application. 2 Active aspirin 81 MG EC tablet Take 81 mg by mouth. Every other day 1 Active amLODIPine (NORVASC) 5 MG tablet 2 Active fluticasone propionate (FLONASE) 50 mcg/actuation nasal spray 1 spray by Nasal route daily. Active therapeutic multivitamin tablet Take 1 tablet by mouth daily. Active cholecalciferol (VITAMIN D3) 5,000 unit tablet Take 1,000 Units by mouth daily. Active mv,carli,iron,mn/fo lic acid/chol (RQRV-BFEI-KDFIM, PABA, ORAL) Take by mouth. Active oxyCODONE 5 MG immediate release tablet Take 1 tablet (5 mg total) by mouth nightly at bedtime as needed. Partial fill ok 7 tablet 2 Active ibuprofen (ADVIL,MOTRIN) 800 MG tablet Take 800 mg by mouth 3 (three) times a day. 2 Active gabapentin (NEURONTIN) 100 MG capsule Take 100 mg by mouth. 2 Active Active Problems Problem Noted Date Diagnosed [...] with a working camera? Not on file Comments No Sex and Gender Information Value Date Recorded [...] (2 of 3) 02/02/2013 12/08/2012 OSTEOPOROSIS SCREENING INITI AL (ONE-TIME) 2013 RSV VACCINE (1 - 1-dose 75+ series) 2023 Adult Td,Tdap Booster 10/26/2023 10/25/2013 COVID-19 VACCINE (2 - 2023-2 5 season) 2024 08/13/2021 PNEUMOCOCCAL VACCINES (50+ years) [...] this topic Medical Devices Implanted Type Area Mobile Heavy Equipment Mechanic Device Identifier Shelf Expiration Date Model / Serial / Lot Clip Clip Right: Breast Radius Plate 3 Hole Bone Distal Volar Radial Geminus Titanium Rt Narrow - [id number] Implanted:Qty: 1 on 03/22/2022 by Chloe Rene MD at [facility] Right: Wrist [employer] [facility] [id number] L / / Peg Bone 18x2.3mm Threaded Geminus Locking - [id number] Implanted:Qty: 5 on 03/22/2022 by Chloe Rene MD at [facility] Right: Wrist [employer] [facility] [id number] -[id number] / / Peg Bone 2.3mmx20 Threaded Geminus Locking - [id number] Implanted:Qty: 1 on 03/22/2022 by Chloe Rene MD at [facility] Right: Wrist [employer] [facility] [id number] -TS / / Screw Bone 10x3.5mm L Locking Cortical Geminus Titanium Fossa Specific Plating System - [id number] Implanted:Qty: 1 on 03/22/2022 by Chloe Rene MD at [facility] Right: Wrist [employer] [id number] -[id number] / / Screw Bone 12x3.5mm L Locking Cortical Geminus Titanium Fossa Specific Plating System - [id number] Implanted:Qty: 1 on 03/22/2022 by Chloe Rene MD at [facility] Right: Wrist [employer] [id number] -[id number] / / Screw Bone 12x3.5mm L Polyaxial Non Locking Compression Cortical Geminus Titanium Fossa Specific Plating - [id number] Implanted:Qty: 1 on 03/22/2022 by Chloe Rene MD at [facility] Right: Wrist [employer] [id number] -TS / / Insurance MEDICARE PART A & B GENERIC MEDICARE SUPPLEMENT Member Subscriber Plan / Payer (Ef fective 2005-Present) Name:Mercedez Ybarra Relation to Subscriber:Self Name:Mercedez Ybarra Payer ID:Not on file Group ID:Not on file Type:Indemnity Address: [address] [employer] [facility] MEDICARE SUPPLEMENT MEDICARE PART A & B GENERIC MEDICARE SUPPLEMENT MEDICARE SUPPLEMENT MEDICARE PART A & B GENERIC MEDICARE SUPPLEMENT MEDICARE SUPPLEMENT MEDICARE PART A & B GENERIC MEDICARE SUPPLEMENT MEDICARE SUPPLEMENT MEDICARE PART A & B GENERIC MEDICARE SUPPLEMENT Member Subscriber Plan / Payer (Ef fective 2005-Present) Name:Mercedez Ybarra Relation to Subscriber:Self Name:Mercedez Ybarra Payer ID:Not on file Group ID:Not on file Type:IndemniClosely Address: [address] MEDICARE SUPPLEMENT MEDICARE PART A & B GENERIC MEDICARE SUPPLEMENT Member Subscriber Plan / Payer (Ef fective 2005-Present) Name:Mercedez Ybarra Relation to Subscriber:Self Name:Mercedez Ybarra Payer ID:Not on file Group ID:Not on file Type:Indemnity Address: [address] MEDICARE SUPPLEMENT MEDICARE PART A & B GENERIC MEDICARE SUPPLEMENT FOR LIFE MEDICARE SUPPLEMENT MEDICARE PART A & B GENERIC MEDICARE SUPPLEMENT Member Subscriber Plan / Payer (Ef fective 2005-Present) Name:Zunilda Mercedez Relation to Subscriber:Self Name:GiancarloangelaMercedez murillo Payer ID:Not on file Group ID:Not on file Type:Indemnity Address: [address] [place] [id number] FOR LIFE MEDICARE SUPPLEMENT Addie [place], [place] Mar[place] MEDICARE PART A & B GENERIC MEDICARE SUPPLEMENT MEDICARE SUPPLEMENT Advance Directives For more information, please contact: [phone] (9AM - 5PM [facility], Friday-Friday) Documents on File Type Date Recorded Patient Heating And Cooling Systems Engineer Expl anation Healthcare Proxy 03/25/2022 2:49 PM Care Teams Log Washer Relationship Specialty Start Date End Date Yogi Sawyer MD PCP - General Internal Medicine 02/22/22 Additional Source Comments The information contained in this document represents components of the legal health record. It is not the complete legal health record.[facility]
--- OUTSIDE RECORDS SUMMARY | 2024-12-06 10:02 | XMS_ITS | Encounter Summary ---
Author Organization [facility] Address [address] [place] [address] Phone Care Team Providers Care Coal Hiker Name Role Phone Yogi Sawyer MD Primary Care Provider [phone] Encounter Details Date Type Department Care Team (Late st Contact Info) Description 03/05/2022 Ancillary Orders [facility] Orthopedics & Sports Medicine [address] [place] [address] Nicol Valenzuela PA-C [address] [place] [address] Orthopedics & Sports Medicine, [facility] [place], [place] [id number] Social History Tobacco Use Types Packs/Day Years [...] on filedocumented in this encounter Care Teams Coal Hiker Relationship Specialty Start Date End Date Yogi Sawyer MD PCP - General Internal Medicine 02/22/22 documented as of this encounter Additional Source Comments The information contained in this document represents components of the legal health record. It is not the complete legal health record.[facility]
--- OUTSIDE RECORDS SUMMARY | 2024-12-06 10:02 | XMS_ITS | Encounter Summary ---
Author Organization [facility] Address [address] [address] Phone Care Team Providers Care Tilesetter Name Role Phone Yogi Sawyer MD Primary Care Provider [phone] Encounter Details Date Type Department Care Team (Late st Contact Info) Description 03/22/2022 Procedure Pass OR Admitting Dept - Virtual Department [address] [place] [address] Social History Tobacco Use Types Packs/Day Years Used Date Smoking Tobacco: Former Cigarettes 0.5 20 Smokeless Tobacco: Never Alcohol Use Standard Drinks/Week Comments Yes 0 (1 standard drink = 0.6 oz pur e alcohol) Comments No Sex and Gender Information Value [...] on filedocumented in this encounter Care Teams Tilesetter Relationship Specialty Start Date End Date Yogi Sawyer MD PCP - General Internal Medicine 02/22/22 documented as of this encounter Additional Source Comments The information contained in this document represents components of the legal health record. It is not the complete legal health record.[facility]
--- OUTSIDE RECORDS SUMMARY | 2024-12-06 10:03 | XMS_ITS | Patient Health Record ---
Author Organization [facility] Tena [facility] [place] Address [address] [place] [address] Care Team Providers Care Parts Finisher Name Role Phone Nicol Setve MD Primary Care Provider Joanna Brown Unavailable [phone] Allergies Allergen (clinical drug ingredient) Drug/Non Drug [...] Problem Status W/U Status Risk Notes Problem 042168561 Hammer toe of right foot (M20.41) Active confirmed Problem 237417064 Hammer toe of le ft foot (M20.42) Active confirmed Problem [id number] Atherosclerosi s of artery of both lower extremities (I70.203) Active confirmed Vital Signs Blood pressure diastolic 84 mm Hg 10/18/2024 Height 5ft 6in in 10/18/2024 Blood pressure systolic 130 mm Hg 10/18/2024 Weight 298 lbs 10/18/2024 BMI 48.09 kg/m2 10/18/2024 Encounters Encounter Location Date Provider Diagnosis [facility] [address] [place] [address] 12/16/2023 Joanna Perica Pain in toe of left foot M79.675 ; Atherosclerosis of artery of both lower extremities I70.203 ; Pain in toe of right foot M79.674 and Tinea unguium B35.[address] [address] 04/29/2024 Joanna Perica Pain in toe of left foot M79.675 ; Atherosclerosis of artery of both lower extremities I70.203 ; Pain in toe of right foot M79.674 and Tinea unguium B35.[address] [place] [address] 08/05/2024 Joanna Pedro Atherosclerosis of artery of both lower extremities I70.203 ; Tinea unguium B35.1 ; Pain in toe of left foot M79.675 and Pain in toe of right foot M79.[address] [address] 10/18/2024 Joanna Pedro Atherosclerosis of artery of both lower extremities I70.203 ; Tinea unguium B35.1 ; Pain in toe of left foot M79.675 and Pain in toe of right foot M79.[address] [address] 03/05/2024 Joanna Pedro Assessments Encounter Date Diagnosis [...] Provider Name:Joanna fernandez, 12/27/2024 02:45:00 PM, [address] [facility], [place], [address], Insurance Providers Payer Name Payer Address Payer Phone Subscriber Number Group Number Insured Name Patient Relationship to Insured Coverage Start Date Coverage End Date Medicare National Govt Svcs Inc [address] [place] [address] [id number] Mercedez Hirsch Self - patient is the insured [employer] [address] [place] [address] [id number] Mercedez Hirsch Self - patient is the insured for Life [address] [place] [id number] Mike Hirsch Spouse - patient is the spouse of the insured Medical (General) History Medical History History ICD Code osteoarthritis Back pain/Sciatica Cataracts Depression Diverticulosis Gall bladder problems Headaches High blood pressure Sciatica Measles Mumps Chicken pox Surgical History Surgery Date(Month/Year) cholecystectomy 1992 Breast Surgery, cyst
--- OUTSIDE RECORDS SUMMARY | 2024-12-06 10:03 | XMS_ITS | Continuity of Care Document ---
Author Organization [facility] Address [address] [place] [address]- Care Team Providers Care Police Matron Name Role Phone Evi HOLBROOK, Nicol Melgar Primary Care Physician Encounter [facility] Date(s): 11/03/24 - 12/03/24 [facility] [address] [place] [address]- Encounter Type: Triage Allergies, Adverse Reactions, Alerts Substance Criticality Severity Reaction Reaction Severity Status Neosporin Active Dust Active Latex Active Immunizations Given and Recorded Vaccine Date Status Refusal Reason RSV vaccine preF3, recombinant 10/23/23 Recorded SARS-CoV-2(COVID-19)mRNA-LNP vac(hxc134) 10/23/23 Recorded SARS-CoV-2(COVID-19)mRNA-LNP vac(sah002) 04/27/23 Recorded influenza virus vaccine, inactivated 04/27/23 Nael rded influenza virus vaccine, inactivated 06/02/22 Nael rded influenza virus vaccine, inactivated 04/14/21 Nael rded zoster vaccine, inactivated 11/18/22 Recorded zoster vaccine, inactivated 08/26/22 Recorded [id number] bivalent booster vax 05/08/22 Recorded SARS-CoV-2 (COVID-19) mRNA-1273 vaccine 08/13/21 R ecorded pneumococcal 23-valent vaccine 10/25/13 Recorded tetanus/diphtheria/pertussis, acel(Tdap) 10/25/13 Recorded Medications albuterol CFC free 90 mcg/inh inhalation aerosol 180 mcg, 2, inhalation, Inhalation, Every 6 hours, PRN, # 1 each, Refills 0, Tot. Refills 0, Maintenance, 11/03/24 3:19:00 PM EDT, Aerosol, Route to Pharmacy Electronically, [id number], [facility]/pharmacy #[id number], 168, cm, 11/03/24 15:04:00 EDT, Height, 125, kg, 06/04/24 13:40:00 EST, Dry Weight Start Date: 11/03/24 Stop Date: 12/03/24 Status: Ordered Quantity: 1.0 Unit: each Repeat number: 1 amLODIPine 5 mg oral tablet 5 mg, 1, tablet, By Mouth, Daily, # 90 tablet, Refills 3, Tot. Refills 3, Maintenance, 09/03/24 10:30:00 AM EST, [facility] Partial fill upon patient request if the prescription is for a schedule II opioid drug., 168, cm, 09/03/24 10:07:00 EST, Height, 125, kg, 06/04/24 13:40:00 EST, Dry Weight Start Date: 09/03/24 Status: Ordered Quantity: 90.0 Unit: tablet Repeat number: 4 aspirin 81 mg oral delayed release tablet 81 mg, 1, tablet, By Mouth, Daily, # 30 tablet, Refills 0, Maintenance, 02/01/21 2:21:00 PM EDT, Partial fill upon patient request if the prescription is for a schedule II opioid drug. Start Date: 02/01/21 Status: Ordered Quantity: 30.0 Unit: tablet Repeat number: 1 clobetasol 0.05% topical ointment See Instructions, APPLY TO AFFECTED AREA TWICE A DAY, # 60 Gm, 5 Refills, Maintenance, 11/17/23 7:40:00 AM EDT, [facility] STORE [id number], 30, APPLY TO AFFECTED AREA TWICE A DAY, 168, cm, 11/12/23 13:01:00 EDT,Height Start Date: 11/17/23 Status: Ordered Quantity: 60.0 Unit: g Repeat number: 1 clobetasol 0.05% topical ointment 1 application, Topically, 2 times a day, # 60 Gm, 5 Refills, Maintenance, 10/18/22 11:02:00 AM EDT, Ointment, [facility]/pharmacy #1230, Partial fill upon patient request if the prescription is for a schedule II opioid drug., 1 application Topically 2 times a day, 168, cm, 10/18/22 10:37:00 EDT, Height Start Date: 10/18/22 Status: Ordered Quantity: 60.0 Unit: g Repeat number: 6 Compression Stockings See Instructions, # 2 each, Maintenance, surgical, knee length 20-30 mm Hg, 04/03/23 3:54:00 PM EDT, Supply Start Date: 04/03/23 Status: Ordered Quantity: 2.0 Unit: each Repeat number: 1 Flonase Daily, 0 Refills, Maintenance, 07/11/22 12:43:00 PM EST, Partial fill upon patient request if the prescription is for a schedule II opioid drug. Start Date: 07/11/22 Status: Ordered Repeat number: 1 gabapentin 100 mg oral capsule 3, capsule, By Mouth, 3 times a day, # 270 capsule, Refills 5, Tot. Refills 5, Maintenance, 09/03/24 10:30:00 AM EST, Route to Pharmacy Electronically, [facility]/pharmacy #1230, 168, cm, 09/03/24 10:07:00 EST, Height, 125, kg, 06/04/24 13:40:00 EST, Dry Weight Start Date: 09/03/24 Status: Ordered Quantity: 270.0 Unit: capsule Repeat number: 6 gabapentin 100 mg oral capsule 300 mg, 3, capsule, By Mouth, 3 times a day, X30 DAYS., # 270 capsule, Refills 5, Tot. Refills 5, Maintenance, 05/15/24 11:33:00 AM EDT, Route to Pharmacy Electronically, [facility]/pharmacy #1230, 168, cm,04/29/24 9:49:00 EDT, Height Start Date: 05/15/24 Stop Date: 11/11/24 Status: Ordered Quantity: 270.0 Unit: capsule Repeat number: 6 hydrochlorothiazide-triamterene 25 mg-37.5 mg oral capsule 1 capsule, By Mouth, Daily, # 90 capsule, 3 Refills, Maintenance, 09/03/24 10:29:00 AM EST, Capsule, [facility]/pharmacy #1230, Partial fill upon patient request if the prescription is for a schedule II opioid drug., 1 capsule By Mouth Daily, 168, cm, 09/03/24 10:07:00 EST, Height, 125, kg, 06/04/24 13:40:00 EST, Dry Weight Start Date: 09/03/24 Status: Ordered Quantity: 90.0 Unit: capsule Repeat number: 4 ibuprofen 800 mg oral tablet 1, tablet, By Mouth, 3 times a day, # 90 tablet, Refills 0, Maintenance, 05/19/24 11:50:00 AM EDT, Route to Pharmacy Electronically, [id number], 168, cm, 04/29/24 9:49:00 EDT, Height Start Date: 05/19/24 Status: Ordered Quantity: 90.0 Unit: tablet Repeat number: 1 Insulin Syringe, BD Ultra-Fine 1 cc 30 G x 12.7 mm (1/2in) See Instructions, # 10 each, Refills 1, Tot. Refills 1, Maintenance, use with injectable medicationvial once weekly dx: obesity, 09/07/24 9:18:00 AM EST, Supply, 168, cm, 09/03/24 10:07:00 EST, Height, 125, kg, 06/04/24 13:40:00 EST, Dry Weight Start Date: 09/07/24 Status: Ordered Quantity: 10.0 Unit: each Repeat number: 2 omeprazole 40 mg oral enteric coated capsule 1 capsule = 40 mg, By Mouth, Daily, # 90 capsule, 3 Refills, Maintenance, 10/10/24 9:08:00 AM EDT, Suspension, [facility], Partial fill upon patient request if the prescription is for a schedule II opioid drug., 168, cm, 09/03/24 10:07:00 EST, Height, 125, kg, 06/04/24 13:40:00 EST, Dry Weight Start Date: 10/10/24 Stop Date: 10/05/25 Status: Ordered Quantity: 90.0 Unit: capsule Repeat number: 4 pravastatin 40 mg oral tablet 1 tablet = 40 mg, By Mouth, Daily, # 90 tablet, 3 Refills, Maintenance, 09/03/24 10:28:00 AM EST, Tablet, [facility], Partial fill upon patient request if the prescription is for a schedule II opioid drug., 168, cm, 09/03/24 10:07:00 EST, Height, 125, kg, 06/04/24 13:40:00 EST, Dry Weight Start Date: 09/03/24 Status: Ordered Quantity: 90.0 Unit: tablet Repeat number: 4 sertraline 50 mg oral tablet 1 tablet, By Mouth, Daily, # 90 tablet, 3 Refills, Maintenance, 04/29/24 10:01:00 AM EDT, [facility], 168, cm, 04/29/24 9:49:00 EDT, Height Start Date: 04/29/24 Status: Ordered Quantity: 90.0 Unit: tablet Repeat number: 4 tirzepatide 7.5 mg/0.5 mL subcutaneous solution = 7.5 mg, Subcutaneous Injection, Every week, rotate injection sites, # 4 each, 2 Refills, Maintenance, 11/19/24 12:52:00 PM EDT, Solution, [facility]/pharmacy #1230, Partial fill upon patient request if theprescription is for a schedule II opioid drug., 168, cm, 11/03/24 15:04:00 EDT, Height, 125, kg, 06/04/24 13:40:00 EST, Dry Weight Start Date: 11/19/24 Status: Ordered Quantity: 4.0 Unit: each Repeat number: 3 Vitamin D 26229 iu oral capsule 50,000 International_Units, By Mouth, Daily, Refills 0, Maintenance, 02/01/21 2:21:00 PM EDT, Partialfill upon patient request if the prescription is for a schedule II opioid drug. Start Date: 02/01/21 Status: Ordered Repeat number: 1 Zepbound 5 mg/0.5 mL subcutaneous solution = 5 mg, Subcutaneous Injection, Every week, for 30 days, rotate injection sites, # 4 each, 2 Refills, Hard Stop 01/05/25 10:15:00 AM EDT, 10/07/24 10:15:00 AM EDT, Solution, [facility], Partial fill upon patient request if the prescription is for a schedule II opioid drug., 168, cm, 10/07/24 9:58:00 EDT, Height, 125, kg, 06/04/24 13:40:00 EST, Dry Weight Start Date: 10/07/24 Stop Date: 01/05/25 Status: Ordered Quantity: 4.0 Unit: each Repeat number: 3 zolpidem 10 mg oral tablet 1 tablet = 10 mg, By Mouth, Daily at bedtime, PRN as needed for insomnia, masspat checked contract to be updated at scheduled appt on 10/23/23, # 30 tablet, 0 Refills, Maintenance, 11/01/24 8:11:00 PM EDT, Tablet, [facility]/pharmacy #1230, Partial fill upon patient request if the prescription is for a schedule II opioid drug., 168, cm, 10/07/24 9:58:00 EDT, Height, 125, kg, 06/04/24 13:40:00 EST, Dry Weight Start Date: 11/01/24 Stop Date: 12/01/24 Status: Ordered Quantity: 30.0 Unit: tablet Repeat number: 1 Problem List Condition Confirmation Course Effective Dates Status H ealth Status Informant Gastritis Confirmed Active Depression Confirmed Active Morbid obesity Confirmed Active Hyperlipidemia Confirmed Active HTN (hypertension) Confirmed Active Insomnia Confirmed Active Lumbar radiculopathy Confirmed Active DARLIN on CPAP Confirmed Active OA (osteoarthritis) Confirmed Active Osteopenia Confirmed Active Severe obesity Confirmed Active Severe obesity (BMI 35.0-39.9) with comorbidity Confirmed Active Urinary incontinence Confirmed Active Social History Social History Type Response Smoking Status Former smoker, quit more than 30 days ago; Other: quit when she was 31; entered on: 02/01/21 Sex Sex Representation Female (finding) Patient Care team information Care Team Personnel Name: Nicol Steve MD Position: S Physician - Primary Care Member Role: PCP Address: [address] [place] [address] Telecom: Care Team Related Persons Name: PHILIP GARCÍA Insurance Providers Guarantor name: MAHESH KEENEMIGUEL Health Plan Information #: 1 Payer: MEDICARE PART B OUTPT Member Number: NA Policy Number: NA Group Number: NA Health Plan Information #: 2 Payer: I10 MEDICARE SUPPL [id number] Member Number: NA Policy Number: NA Group Number: NA Health Plan Information #: 3 Payer: FOR LIFE MCR A ONLY Member Number: NA Policy Number: NA Group Number: NA
--- OUTSIDE RECORDS SUMMARY | 2024-12-06 10:03 | XMS_ITS ---
Author Organization [facility] Tena tamiko [place] Address [address] [place] [address] Care Team Providers Care Commutator Tester Name Role Phone Nicol Steve MD Primary Care Provider Joanna Brown Unavailable [phone] Allergies Allergen (clinical drug ingredient) Drug/Non Drug [...] 025 Encounters Encounter Location Date Provider Diagnosis [facility] [place] [place] [address] 08/05/2024 Joanna Pedro Atherosclerosis of artery of [...] Provider Name:Joanna fernandez, 12/27/2024 02:45:00 PM, [address] [place], [place], [address], Procedure Notes * Category Sub-Category Detail Notes [...] use of a nail nipper and/or dremel-type concrete wall grinder operator, to a more viable healthy nail plate [...] to maintain effectiveness in symptomatic relief - 95393 Keratoma Treatment Parring or Cutting o f [...] instrumentation by the physician of record - 13012 Progress Notes * Gayle YBARRAOB:[birth year] (73 yo F)Acc No.[id number]:08/05/2024 Progress Note Patient:?Mercedez YBARRA Provider:?Joanna Pedro DPM :1950???Age:73 Y???Sex:Female D ate:08/05/2024 Address:[address] [place], [place] [id number] Pcp:Nicol Steve MD Subjective: * Chief Complaints: [...] use of a nail nipper and/or dremel-type concrete wall grinder operator, to a more viable healthy nail plate [...] to maintain effectiveness in symptomatic relief - 33832.?Keratoma Treatment:?Parring or Cutting of Benign Hyperkeratotic Lesion(s)?(-57) [...] instrumentation by the physician of record - 85495.? * Procedure Codes:?30236 DEBRI DE NAIL, 6 OR MORE, Modifiers: XS 27808 TRIM SKIN LESIONS, OVER 4, Modifiers: XS , Q8 * Follow Up:?3 Months * Images: * Sign off status: Completed true * Provider:?Joanna Pedro DPM Date:?03/2025 Generated for Lilliana trevizo/Christopher/Esperanza on:?12/06/2024 10:02 AM [...]
== END 2024-12-06 10:20 | disposition home or self-care (01) ==
LOC: HO.HOS 09:41
PROVIDERS: Visit Provider Orthopaedic Surgery
DX: M17.0 Bilateral primary osteoarthritis of knee (principal)
CPT/HCPCS: 99214

== ENCOUNTER → 2024-12-06 09:41 | Outpatient (BNVA) | payer MEDICARE, OTHER, SELFPAY | PROVIDERS: Visit Provider Orthopaedic Surgery | DX: M17.0 Bilateral primary osteoarthritis of knee (principal) | CPT/HCPCS: 99212 ==

== ENCOUNTER → 2025-02-22 08:54 | Outpatient (BNVA) | payer MEDICARE, OTHER, SELFPAY | PROVIDERS: PCP Family Medicine | DX: Z01.818 Encounter for other preprocedural examination (principal) ==

== ENCOUNTER 2025-03-10 10:38 | Outpatient (AMB) | payer MEDICARE, OTHER, SELFPAY ==
--- OUTSIDE RECORDS SUMMARY | 2025-02-28 06:30 | XMS_ITS ---
Author Organization [facility] Address [address] [place] [address] Care Team Providers Care Chip Bin Operator Name Role Phone Evi HOLBROOK, Nicol Primary Care Provider Unavailab Joanna Cagle Unavailable [phone] Encounters Encounter Location Date Provider Diagnosis [address] [address] 02/28/2025 Joanna Pedro Plan Of Treatment No Information Progress Notes * AMADA CarolineRamsesOB:[birth year] (74 yo F)Acc No.[id number]:02/28/2025 Progress Note Patient: Mercedez LEAHY Provider: Huang Pedro DPM :1950 A ge:74 Y S ex:Female Date:02/28/2025 Address:[address] [place], [place] [phone] Pcp:Nicol Steve MD Subjective: * Chief Complaints: [...] Date: 02/28/2025 Generated for Katrinai ng/Fadavidg/eTransmitting on: 03/10/2025 11:45 AM EDT
--- NOTE | 2025-03-08 07:36 | A.OFFVIS_ITS ---
Intake Visit Reasons: Pre-Op LT TKA 03/15/25 NE Intake Note: Mercedez is a 74 year old female who presents today for a preoperative visit of left total knee arthroplasty that is scheduled for 03/15/[address] Arnold. Pain management agreement reviewed and signed. Allergies bacitracin (From Neosporin ([id number])) Allergy (Intermediate, Verified 03/10/25 10:43) Blister house dust Allergy (Intermediate, Verified 03/10/25 10:43) Itchy Eyes latex Allergy (Intermediate, Verified 03/10/25 10:43) Redness of Skin neomycin (From Neosporin (doe-phl-[id number])) Allergy (Intermediate, Verified 03/10/25 10:43) Blister polymyxin B (From Neosporin ([id number]-wbr-ztavp)) Allergy (Intermediate, Verified 03/10/25 10:43) Blister Medication List - Last Reconciled 03/10/25 by Estrada Guillen PA-C amlodipine 5 mg PO QAM aspirin 81 mg PO QAM [Folding Front Wheeled walker Duration: 99 days] gabapentin 300 mg PO TID ibuprofen 800 mg PO TID PRN omeprazole 40 mg PO QAM pravastatin 40 mg PO QAM [Raised toilet seat w handrails duration - 99 days] sertraline 50 mg PO QAM tirzepatide (weight loss) (Zepbound) 2.5 mg subcut QWEEK triamterene-hydrochlorothiazid 37.5-25 mg 1 cap PO QAM zolpidem 10 mg PO BEDTIME PRN HPI Comments Details: Ms Mauro presents to the office today for Orthopedic Pre op clearance. She is scheduled for Lt TKA 03/15/[address] Arnold . She has been experiencing bilateral knee pain for several years with the left currently being the worse. She has had gel and steroid injections with short-term relief. Most recent injection being approximately a year and a half ago. She does use a walker to ambulate and states the stairs are difficult. She is unable to engage in exercise or regular ambulation due to her knee pain. Patient lives at home with her daughter and son-in-law and 2 children. She does own a walker. She would like to go to a [facility] due to not having available help at home on Dc. At baseline, she does take Oxycodone 5mg tabs rx by her PCP. She states this is only when she is in a lot of pain, her last dose was 6 weeks ago. Prior Medical clearances: -PCP clearance done at [facility] by Kristian Santoro NP: Patient is stable and no absolute medical contraindications for the proposed surgery. Of note the patient does have untreated sleep apnea. Postoperatively we will need to use caution with opiates to reduce risk of respiratory depression. Quit smoking approx 40 years ago Patient has no other cardiopulmonary or vascular comorbidities. [facility] Medical History (Updated 03/10/25 @ 11:02 by Estrada Guillen PA-C) GERD (gastroesophageal reflux disease) Fatty liver DARLIN (obstructive sleep apnea) Urinary incontinence Osteopenia Osteoarthritis Obesity Lumbar radiculopathy Depression Hyperlipidemia Hypertension Surgical History Hx of left breast biopsy Hx of tubal ligation History of open reduction and internal fixation (ORIF) procedure History of esophagogastroduodenoscopy (EGD) H/O colonoscopy Hx of cholecystectomy Social History Are you a primary healthcare architect to a significant other at home: No Do you presently have visiting nurse or other home services: No Patient Tobacco Use Status: Former Tobacco user Tobacco use type: Cigarette Years Smoked: 19 Current occupational status: retired Review of Systems Const All systems reviewed & are unremarkable except as noted in HPI and below Physical Exam Const General: cooperative, healthy appearing, comfortable and no acute distress Orientation/consciousness: patient oriented x3 HEENT Head: Yes normal to inspection and Yes atraumatic Ears: hearing grossly normal bilaterally Eyes General: appearance normal, both eyes and all related structures Neck Neck: Yes normal visual inspection and Yes no lymphadenopathy Resp Effort & Inspection: normal respiratory effort and able to speak in complete sentences Cardio Peripheral pulses: Peripheral pulses 2+ throughout Neuro General: patient oriented x3 Extrem Other: Left knee skin intact, no open wounds or abraisons. She has medial joint line tenderness to palpation with a markedly antalgic gait. She has 10-95 degrees motion on the left with stable to varus and valgus stress. She has a 2+ dorsalis pedis pulse in his firing her TA/GC/EHL. Skin is intact to light touch. No evidence of venous stasis. Psych Appearance: well kempt Assessment & Plan Assessment & Plan (1) Osteoarthritis of left knee: Code(s): M17.12 - Unilateral primary osteoarthritis, left knee Category: Medical Plan: Has exhausted all conservative measures consisting of lifestyle modifications, physical therapy, analgesics, corticosteroid injections and use of assisted devices and continues to have significant limitations in daily activities along with decreased quality of life. Given the patient's desire to improve their quality of life, surgical intervention consisting of joint replacement surgery is recommended at this time.? We discussed the procedure in detail today; which includes pre op preparation with labs and reviewing patients medication regimen prior to surgery. Patient will need to hold her ibuprofen for 7 days before surgery and Zepbound 14 days before surgery. Preop labs were ordered today which include a BMP, CBC, type and screen and A1c. I discussed at length the post op course which includes physical therapy services in the hospital along with the discharge routine and the patients plan upon discharge. Patient is interested in acute rehab versus short-term rehab postoperatively upon discharge. Patient does have all appropriate DME's. I explained to the patient, once they are DC home, they will receive VNA services which will include PT 2-3x per week. We also discussed their choice for outpatient PT once they are discharged from home PT. She is interested in either [facility] or [facility]. Once she is DC from home PT, we will place the order. Post op DVT ppx was also discussed and the considering the patients BMI, she will be placed on Lovenox 40 mg subQ once a day for 6 weeks. I reviewed with the patient their post op pain medication regimen along with the detailed wean program. The patient did express understanding of this and agreed to the narcotic policy. Lastly, I discussed with the patient the risks to the procedure. Risks including but not limited to infection, injury to surrounding nerves, tissue , bone, small and large vessels, stiffness, aseptic loosening, fracture, dislocation, amputation, DVT/PE along with intraoperative complications including but not limited to . The patient does express understanding, all questions were answered and the patient would like to proceed? with left total knee arthroplasty with Dr. Arnold. Consents were signed and dated while in the office today.? Patient will return 03/31/2025 for her postop appointment. Orders: Orders Complete Blood Count Auto Diff 03/10/25 Z01.818 - Encounter for other preprocedural examination PT Evaluation and Treatment 03/10/25 Z96.651 - Presence of right artificial knee joint Basic Metabolic Panel 03/10/25 Z01.818 - Encounter for other preprocedural examination Hemoglobin A1c 03/10/25 E11.9 - Type 2 diabetes mellitus without complications Type and Screen 03/10/25 Z01.818 - Encounter for other preprocedural e xamination Coding Level of Care Code Est Pt Level 4 (60342) Complex EM visit Add On G2211 Diagnoses Osteoarthritis of left knee M17.12
--- OUTSIDE RECORDS SUMMARY | 2025-03-09 17:08 | XMS_ITS | Continuity of Care Document ---
Author Organization [facility] Address [address] [place] [address]- Care Team Providers Care Channel Worker Name Role Phone Nicol Steve MD Primary Care Phys[id number] [address] [place] [phone]- Encounter Diagnosis Bilateral primary osteoarthritis of knee(Final) - Discharge Disposition: A-D/C Home Attending Physician: Nicol Steve MD Admitting Physician: Nicol Steve MD Referring Physician: sEtrada Ryan Encounter Type: Disch Recurring OP Allergies, Adverse Reactions, Alerts Substance Criticality Severity Reaction Reaction Severity Status Neosporin Active Dust Active Latex Active Immunizations Given and Recorded Vaccine Date Status Refusal Reason RSV vaccine preF3, recombinant 10/23/23 Recorded SARS-CoV-2(COVID-19)mRNA-LNP vac([id number]) 10/23/23 Recorded SARS-CoV-2(COVID-19)mRNA-LNP vac(nhp515) 04/27/23 Recorded influenza virus vaccine, inactivated 04/27/23 Nael rded influenza virus vaccine, inactivated 06/02/22 Nael rded influenza virus vaccine, inactivated 04/14/21 Nael rded zoster vaccine, inactivated 11/18/22 Recorded zoster vaccine, inactivated 08/26/22 Recorded [id number] bivalent booster vax 05/08/22 Recorded SARS-CoV-2 (COVID-19) mRNA-1273 vaccine 08/13/21 R ecorded pneumococcal 23-valent vaccine 10/25/13 Recorded tetanus/diphtheria/pertussis, acel(Tdap) 10/25/13 Recorded Medications albuterol CFC free 90 mcg/inh inhalation aerosol 180 mcg, 2, inhalation, Inhalation, Every 6 hours, PRN, # 1 each, Refills 0, Tot. Refills 0, Maintenance, 11/03/24 3:19:00 PM EDT, Aerosol, Route to Pharmacy Electronically, [id number], [facility]/pharmacy #[id number], 168, cm, 11/03/24 15:04:00 EDT, Height, 125, kg, 06/04/24 13:40:00 EST, Dry Weight Start Date: 11/03/24 Stop Date: 12/03/24 Status: Ordered Quantity: 1.0 Unit: each Repeat number: 1 amLODIPine 5 mg oral tablet 5 mg, 1, tablet, By Mouth, Daily, # 90 tablet, Refills 3, Tot. Refills 3, Maintenance, 09/03/24 10:30:00 AM EST, Route to Pharmacy Electronically, [facility]/pharmacy #[id number], Partial fill upon patient request if [...] DAY, # 60 Gm, 5 Refills, Maintenance, 01/17/25 6:58:00 AM EDT, [facility] STORE [id number], 30, APPLY TO AFFECTED AREA TWICE A DAY, 168, cm, 01/03/25 14:21:00 EDT,Height, 125, kg, 06/04/24 13:40:00 EST, Dry Weight Start Date: 01/17/25 Status: Ordered Quantity: 60.0 Unit: g Repeat number: 1 Compression Stockings See Instructions, # 2 each, [...] 10:30:00 AM EST, Route to Pharmacy Electronically, [facility]/pharmacy #[id number], 168, cm, 09/03/24 10:07:00 EST, Height, 125, kg, 06/04/24 13:40:00 EST, Dry Weight Start Date: 09/03/24 Status: Ordered Quantity: 270.0 Unit: capsule Repeat number: 6 gabapentin 100 mg oral capsule 300 mg, 3, capsule, By Mouth, 3 times a day, X30 DAYS., # 270 capsule, Refills 5, Tot. Refills 5, Maintenance, 05/15/24 11:33:00 AM EDT, Route to Pharmacy Electronically, [facility]/pharmacy #1230, 168, cm,04/29/24 9:49:00 EDT, Height Start Date: 05/15/24 Stop Date: 11/11/24 Status: Ordered Quantity: 270.0 Unit: capsule Repeat number: 6 hydrochlorothiazide-triamterene 25 mg-37.5 mg oral capsule 1 capsule, By Mouth, Daily, # 90 capsule, 3 Refills, Maintenance, 09/03/24 10:29:00 AM EST, Capsule, [facility]/pharmacy #1230, Partial fill upon patient request if [...] day, # 90 tablet, Refills 0, Maintenance, 02/02/25 10:49:00 AM EDT, Route to Pharmacy Electronically, [facility] STORE [id number], 168, cm, 01/24/25 14:43:00 EDT, Height, 111.5, kg, 01/24/25 14:43:00 EDT, Dry Weight Start Date: 02/02/25 Status: Ordered Quantity: 90.0 Unit: tablet Repeat [...] Refills, Maintenance, 10/10/24 9:08:00 AM EDT, Suspension, [facility]/pharmacy #1230, Partial fill upon patient request if [...] Refills, Maintenance, 09/03/24 10:28:00 AM EST, Tablet, [facility]/pharmacy #1230, Partial fill upon patient request if the prescription is for a schedule II opioid drug., 168, cm, 09/03/24 10:07:00 EST, Height, 125, kg, 06/04/24 13:40:00 EST, Dry Weight Start Date: 09/03/24 Status: Ordered Quantity: 90.0 Unit: tablet Repeat number: 4 sertraline 50 mg oral tablet 1 tablet, By Mouth, Daily, # 90 tablet, 3 Refills, Maintenance, 04/29/24 10:01:00 AM EDT, [facility]/pharmacy #1230, 168, cm, 04/29/24 9:49:00 EDT, Height Start Date: 04/29/24 Status: Ordered Quantity: 90.0 Unit: tablet Repeat number: 4 Vitamin D 88076 iu oral capsule 50,000 International_Units, By Mouth, Daily, Refills 0, Maintenance, 02/01/21 2:21:00 PM EDT, Partialfill upon patient request if the prescription is for a schedule II opioid drug. Start Date: 02/01/21 Status: Ordered Repeat number: 1 Zepbound 5 mg/0.5 mL subcutaneous solution See Instructions, INJECT 0.5 ML (5 MG) UNDER THE SKIN ONCE WEEKLY (0.5ML= 50 UNITS), # 2 mL, 0 Refills, Maintenance, 01/10/25 8:46:00 AM EDT, [facility], 168, cm, 01/03/2514:21:00 EDT, Height, 125, kg, 06/04/24 13:40:00 EST, Dry Weight Start Date: 01/10/25 Status: Ordered Quantity: 2.0 Unit: mL Repeat number: 1 zolpidem 10 mg oral tablet 1 tablet = 10 mg, By Mouth, Daily at bedtime, PRN as needed for insomnia, masspat checked, # 30 tablet, 0 Refills, Maintenance, 02/15/25 8:42:00 AM EDT, Tablet, [facility]/pharmacy #1230, Partial fill upon patient request if the prescription is for a schedule II opioid drug., 168, cm, 01/24/25 14:43:00 EDT, Height, 111.5, kg, 01/24/25 14:43:00 EDT, Dry Weight Start Date: 02/15/25 Stop Date: 03/17/25 Status: Ordered Quantity: 30.0 Unit: tablet Repeat number: 1 Problem List Condition Confirmation Course Effective Dates Status H ealth Status Informant Gastritis Confirmed Active Depression Confirmed Active Morbid obesity Confirmed Active Hyperlipidemia Confirmed Active HTN (hypertension) Confirmed Active Insomnia Confirmed Active Lumbar radiculopathy Confirmed Active DARLIN on CPAP Confirmed Active OA (osteoarthritis) Confirmed Active Osteopenia Confirmed Active Severe obesity (BMI 35.0-39.9) with comorbidity Confirmed Active Urinary incontinence Confirmed Active Social History Social History Type Response Smoking Status Former smoker, quit more than 30 days ago entered on: 01/24/25 Sex Sex Representation Female (finding) Patient Care team information Care Team Personnel Name: Nicol Steve MD Position: S Physician - Primary Care Member Role: PCP Address: [address] [place] [address] [place], [place] [address] Telecom: Care Team Related Persons Name: PHILIP GARCÍA Insurance Providers Guarantor name: MAHESH YBARRA Health Plan Information #: 1 Payer: MEDICARE B Payer Identifier: CARITO Member Number: [id number] Group Number: Subscriber Identifier: [id number] Relationship to Subscriber: self Coverage Type: NA Coverage Verification Date: Telecom: Address: Health Plan Information #: 2 Payer: I10 MEDICARE SUPPL 2ND Payer Identifier: CARITO Member Number: [id number] Group Number: Subscriber Identifier: [id number] Relationship to Subscriber: self Coverage Type: NA Coverage Verification Date: Telecom: Address: [facility] Information #: 3 Payer: FOR LIFE Payer Identifier: CARITO Member Number: [id number] Group Number: [id number] Subscriber Identifier: [id number] Relationship to Subscriber: self Coverage Type: For Life--Medicare Supplement Coverage Verification Date: Telecom: Address:
--- OUTSIDE RECORDS SUMMARY | 2025-03-10 11:45 | XMS_ITS | Patient Health Record ---
Author Organization [facility] Address [address] [place] [address] Care Team Providers Care Loss Control Engineer Name Role Phone None, None Primary Care Provider Unavailabl e Reason For Referral No Information Plan Of Treatment No Information Insurance Providers Payer Name Payer Address Payer Phone Subscriber Number Group Number Insured Name Patient Relationship to Insured Coverage Start Date Coverage End Date ZZ DO NOT USE MEDICARE NON PAR [id number] Mercedez Hirsch Self - patient is the insured 0 [facility] [address] [place], [place] [id number] Mercedez Hirsch Self - patient is the insured 0
--- OUTSIDE RECORDS SUMMARY | 2025-03-10 11:45 | XMS_ITS | Encounter Summary ---
Author Organization [facility] Address [address] [place] [phone] Phone Care Team Providers Care Memorial Designer Name Role Phone Yogi Sawyer MD Primary Care Provider Encounter Details Date Type Department Care Team (Late st Contact Info) Description 03/05/2022 Ancillary Orders [address] [address] Nicol Valenzuela PA-C [address] [place] [address] Orthopedics & Sports Medicine, [place] [address] [email or web address] Injury of left wrist, subsequent encounter Social [...] encounter documented in this encounter Care Teams Memorial Designer Relationship Specialty Start Date End Date Yogi Sawyer MD PCP - General Internal Medicine 02/22/22 documented as of this encounter Additional Source Comments The information contained in this document represents components of the legal health record. It is not the complete legal health record.[facility]
== END 2025-03-10 11:19 | disposition home or self-care (01) ==
LOC: HO.HOS 10:38
PROVIDERS: PCP Family Medicine; Visit Provider Physician Assistant
DX: M17.12 Unilateral primary osteoarthritis, left knee (principal)
CPT/HCPCS: 99024

== ENCOUNTER → 2025-03-10 10:38 | Outpatient (BNVA) | payer MEDICARE, OTHER, SELFPAY | PROVIDERS: PCP Family Medicine; Visit Provider Physician Assistant | DX: Z01.818 Encounter for other preprocedural examination (principal); M17.12 Unilateral primary osteoarthritis, left knee | CPT/HCPCS: 99212 ==

== ENCOUNTER 2025-03-15 05:55 | Day surgery (SDC) | payer MEDICARE, OTHER, SELFPAY ==
--- OUTSIDE RECORDS SUMMARY | 2025-02-15 11:43 | XMS_ITS | Patient Health Record ---
Author Organization [facility] Address [address] [place] [address] Care Team Providers Care Residential Program Coordinator Name Role Phone None, None Primary Care Provider Unavailabl e Reason For Referral No Information Plan Of Treatment No Information Insurance Providers Payer Name Payer Address Payer Phone Subscriber Number Group Number Insured Name Patient Relationship to Insured Coverage Start Date Coverage End Date ZZ DO NOT USE MEDICARE NON PAR [id number] Mercedez Hirsch Self - patient is the insured [facility] [address] [place], [place] [id number] Mercedez Hirsch Self - patient is the insured 0
--- OUTSIDE RECORDS SUMMARY | 2025-02-15 11:43 | XMS_ITS | Patient Health Record ---
Author Organization [facility] Tena tamiko [place] Address [address] [facility] [place] [address] Care Team Providers Care Lead Athlete Name Role Phone Nicol Steve MD Primary Care Provider Joanna Brown Unavailable [phone] Allergies Allergen (clinical drug ingredient) Drug/Non Drug Allergy documented on EMR Reaction Allergy Type Onset Date Status Neosporin Unknown Drug Allergy Active Adhesive rash Allergy Active Latex Latex rash Allergy Active Reason For Referral No Information Medications Medication SIG (Take, Route, Frequency, Duration) Notes Start Date End Date Status Gabapentin 100 MG 1 capsule Orally Onc e a day Active Zepbound 5 MG/0.5ML 0.5 mL Subcutaneous Active Zolpidem Tartrate ER 12.5 MG 1 tablet at bedtime as needed Orally Once a day Active Clobetasol Propionate 0.05 % 1 application Externally Twice a day; Duration: 10 day(s) Active Triamterene-HCTZ 37.5-25 MG 1 tablet in the morning Orally Once a day; Duration: 30 day(s) Active Pravastatin Sodium 40 MG 1 tablet Orally Once a day; Duration: 30 day(s) Active Sertraline HCl 50 MG 1 tablet Orally Onc e a day; Duration: 30 day(s) Active Omeprazole 40 MG 1 capsule 30 minutes before morning meal Orally Once a day; Duration: 30 day(s) Active oxyCODONE-Acetaminophen 7.5-325 MG 1 tablet as needed Orally every 6 hrs Active amLODIPine Besylate 5 MG 1 tablet Orally Once a day; Duration: 30 day(s) Active Mometasone Furoate 50 MCG/ACT 2 sprays in each nostril Nasally Once a day; Duration: 30 day(s) Active Immunizations Vaccine Route Administration Date Status Comme nts Influenza Unknown 03/28/2022 Administered COVID-19 Pfizer BioNTech Vaccine Unknown 10/11/2020 Administered 1st vaccine Social History Tobacco Use: Social History Observation [...] Problem Status W/U Status Risk Notes Problem Acquired hammer toe of right foot (6668161641083852) Hammer toe of right foot (M20.41) Active confirmed Problem Acquired hammer toe of left foot (4270189866895856) Hammer toe of left foot (M20.42) Active confirmed Problem Bilateral atherosclerosis of arteries of lower limbs (disorder) (58923462323354415 ) Atherosclerosis of artery of both lower extremities (I70.203) Active confirmed Vital Signs Blood pressure diastolic 84 mm Hg 12/27/2024 Height 5ft 6in in 12/27/2024 Blood pressure systolic 130 mm Hg 12/27/2024 Weight 298 lbs 12/27/2024 BMI 48.09 kg/m2 12/27/2024 Encounters Encounter Location Date Provider Diagnosis [address] [address] 04/29/2024 Joanna Perica Pain in toe of left foot M79.675 ; Atherosclerosis of artery of both lower extremities I70.203 ; Pain in toe of right foot M79.674 and Tinea unguium B35.[address] [facility] [address] 08/05/2024 Joanna Perica Atherosclerosis of artery of both lower extremities I70.203 ; Tinea unguium B35.1 ; Pain in toe of left foot M79.675 and Pain in toe of right foot M79.[address] [address] 10/18/2024 Joanna Perica Atherosclerosis of artery of both lower extremities I70.203 ; Tinea unguium B35.1 ; Pain in toe of left foot M79.675 and Pain in toe of right foot M79.[address] [address] 12/27/2024 Joanna Perica Atherosclerosis of artery of both lower extremities I70.203 ; Tinea unguium B35.1 ; Pain in toe of left foot M79.675 and Pain in toe of right foot M79.[address] [address] 03/05/2024 Joanna Pedro Assessments Encounter Date Diagnosis (ICD Code) Assessment Notes Treatment Notes Treatment Clinical Notes Section Notes 04/29/2024 Pain in toe of left foot (ICD-10 - M79.675) 08/05/2024 Atherosclerosis of artery of both lower extremities (ICD-10 - I70.203) 10/18/2024 Atherosclerosis of artery of both lower extremities (ICD-10 - I70.203) 08/05/2024 Tinea unguium (ICD-10 - B35.1) 12/27/2024 Atherosclerosis of artery of both lower extremities (ICD-10 - I70.203) 08/05/2024 Pain in toe of left foot (ICD-10 - M79.675) 12/27/2024 Tinea unguium (ICD-10 - B35.1) 10/18/2024 Tinea unguium (ICD-10 - B35.1) 04/29/2024 Atherosclerosis of artery of both lower extremities (ICD-10 - I70.203) 04/29/2024 Pain in toe of right foot (ICD-10 - M79.674) 10/18/2024 Pain in toe of left foot (ICD-10 - M79.675) 12/27/2024 Pain in toe of left foot (ICD-10 - M79.675) 08/05/2024 Pain in toe of right foot (ICD-10 - M79.674) 12/27/2024 Pain in toe of right foot (ICD-10 - M79.674) 10/18/2024 Pain in toe of right foot (ICD-10 - M79.674) 04/29/2024 Tinea unguium (ICD-10 - B35.1) Plan Of Treatment Next Appt Details Provider Name:Joanna fernandez, 02/28/2025 10:30:00 AM, [address] [facility], [place], [address], Insurance Providers Payer Name Payer Address Payer Phone Subscriber Number Group Number Insured Name Patient Relationship to Insured Coverage Start Date Coverage End Date Medicare National [employer] [address] [facility] [place] [address] [id number] Mercedez Hirsch Self - patient is the insured [employer] [address] [place] [address] [phone] [id number] Mercedez Hirsch Self - patient is the insured for Life [address] [place] [address] [id number] Mike Hirsch Spouse - patient is the spouse of the insured Medical (General) History Medical History History ICD Code osteoarthritis Back pain/Sciatica Cataracts Depression Diverticulosis Gall bladder problems Headaches High blood pressure Sciatica Measles Mumps Chicken pox Surgical History Surgery Date(Month/Year) cholecystectomy 1993 Breast Surgery, cyst
--- OUTSIDE RECORDS SUMMARY | 2025-02-15 11:43 | XMS_ITS ---
Author Name [facility] Organization Unknown Encounters Encounter Type Encounter Reason Primary Diagnosis Location Date Ambulatory [facility] [place] 09/10/2024 Ambulatory [facility] [place] 08/24/2024 Ambulatory [facility] [place] 08/24/2024
--- OUTSIDE RECORDS SUMMARY | 2025-02-15 11:43 | XMS_ITS | Encounter Summary ---
Author Organization [facility] Address [address] [place] [address] Phone Care Team Providers Care Masonry Supervisor Name Role Phone Yogi Sawyer MD Primary Care Provider [phone] Encounter Details Date Type Department Care Team (Late st Contact Info) Description 03/05/2022 Ancillary Orders [address] [address] Nicol Valenzuela PA-C [address] [place] [address] Orthopedics & Sports Medicine, [place] [address] [email or web address] Injury of left wrist, subsequent encounter Social [...] encounter documented in this encounter Care Teams Masonry Supervisor Relationship Specialty Start Date End Date Yogi Sawyer MD PCP - General Internal Medicine 02/22/22 documented as of this encounter Additional Source Comments The information contained in this document represents components of the legal health record. It is not the complete legal health record.[facility]
[2025-02-21 10:15] VITALS: BP 121/58; PULSE 66; RESP 20; O2SAT 98; BMI 38.7
--- NOTE | 2025-02-21 10:24 | HO.ANESPROP2 ---
Documented by User: Jaimie Samaniego NP 02/21/25 10:33 HPI - Anesthesia Eval Consult details Narrative: 74yo F for Left ?Knee Replacement Total, 03/15/25 Medically optimized per [facility] No recent illness No CP/SOB with housework DARLIN: Cannot tolerate CPAP GERD: ppi controls Anesthesia Pre-Procedure Meds Is the patient on any of the following meds?: GLP1/DPP4 PMFSH Active Problems Active Problems: All Active Problems Osteoarthritis of right knee (Acute) Osteoarthritis of knees, bilateral (Acute) Past Medical History Medical History GERD (gastroesophageal reflux disease) Fatty liver DARLIN (obstructive sleep apnea) Urinary incontinence Osteopenia Osteoarthritis Obesity Lumbar radiculopathy Depression Hyperlipidemia Hypertension Functional capacity: uses cane/walker Family History Family history of problems with anesthesia: No Surgical History Surgical History Hx of left breast biopsy Hx of tubal ligation History of open reduction and internal fixation (ORIF) procedure History of esophagogastroduodenoscopy (EGD) H/O colonoscopy Hx of cholecystectomy History of Problems with Anesthesia: No Social History Social History Are you a primary dialysis patient care technician to a significant other at home: No Do you presently have visiting nurse or other home services: No Patient Tobacco Use Status: Former Tobacco user Tobacco use type: Cigarette Years Smoked: 19 Use of substances other than those prescribed or required for medical reasons: No Have you been hit, kicked, punched, or otherwise hurt by someone within the past year? If so, by whom?: No Spiritual Healthcare Practices: no Episcopalian Healthcare Practices: no Cultural Healthcare Practices: no Are you DNR?: No Advance Directives on File: No FDLMP: n/a Poor oral hygiene: No Current occupational status: retired Meds Allergies Allergy/AdvReac Type Severity Reaction Status Date / Time bacitracin (From Neosporin Allergy Intermediate Blister Verified 03/15/25 06:25 ([id number])) house dust Allergy Intermediate Itchy Eyes Verified 03/15/25 06:25 latex Allergy Intermediate Redness of Verified 03/15/25 06:25 Skin neomycin (From Neosporin Allergy Intermediate Blister Verified 03/15/25 06:25 (waz-cnj-flhkl)) polymyxin B (From Neosporin Allergy Intermediate Blister Verified 03/15/25 06:25 (fkr-[id number])) Home Medications ?Medication ?Instructions ?Recorded ?Confirmed ?Last Taken ?Type amlodipine 5 mg tablet 5 mg PO QAM 11/01/24 03/10/25 03/15/25 History gabapentin 100 mg capsule 300 mg PO TID 11/01/24 03/10/25 03/15/25 History omeprazole 40 mg capsule,delayed 40 mg PO QAM 11/01/24 03/10/25 03/15/25 History release pravastatin 40 mg tablet 40 mg PO QAM 11/01/24 03/10/25 03/15/25 History sertraline 50 mg tablet 50 mg PO QAM 11/01/24 03/10/25 Unknown History tirzepatide (weight loss) 2.5 2.5 mg subcut QWEEK 11/01/24 03/10/25 03/04/25 History mg/0.5 mL subcutaneous pen injector (Zepbound) triamterene 37.5 1 cap PO QAM 11/01/24 03/10/25 Unknown History mg-hydrochlorothiazide 25 mg capsule zolpidem 10 mg tablet 10 mg PO BEDTIME PRN Insomnia 11/01/24 03/10/25 Unknown History aspirin 81 mg tablet,delayed 81 mg PO QAM 02/18/25 03/10/25 03/01/25 History release ibuprofen 800 mg tablet 800 mg PO TID PRN Pain 02/18/25 03/10/25 03/01/25 History Exam Height,Weight and Vital Signs: Height 5 ft 6 in Weight 108.8 kg Last Vital Signs Pulse 66 02/21/25 10:15 Resp 20 02/21/25 10:15 BP 121/58 L 02/21/25 10:15 Pulse Ox 98 02/21/25 10:15 O2 Del Method Room Air 02/21/25 10:15 Narrative Narrative: EKG 12/2024 Ventricular Rate: 56 ?BPM Atrial Rate: 56 ?BPM P-R Interval: 182 ?ms QRS Duration: 100 ?ms Q-T Interval: 470 ?ms QTC Calculation(Bazett): 453 ?ms P [place]: 41 ?degrees R [place]: 25 ?degrees T [place]: 44 ?degrees Sinus bradycardia Otherwise normal ECG No previous ECGs available Confirmed by Dawson Fleming ([id number]) on 01/24/2025 3:35:45 P?[1] Airway Mallampati Class: III TM Dist: >3cm Neck ROM: Full Loose/Missing/Broken Teeth: Yes (lower right molar missing, caps and crowns throughout stable) Heart: Ben, RR Lungs: CTAB Assessment and Plan Assessment Anesthesia Assessment: Anesthesia Plan Discussed and PAT Visit Final Anesthetic Review Family History of Problems with Anesthesia: No History of Problems with Anesthesia: No Documented by User: Diamond Heart MD 03/15/25 08:45 PMFSH Past Medical History Medical History GERD (gastroesophageal reflux disease) Fatty liver DARLIN (obstructive sleep apnea) Urinary incontinence Osteopenia Osteoarthritis Obesity Lumbar radiculopathy Depression Hyperlipidemia Hypertension Surgical History Surgical History Hx of left breast biopsy Hx of tubal ligation History of open reduction and internal fixation (ORIF) procedure History of esophagogastroduodenoscopy (EGD) H/O colonoscopy Hx of cholecystectomy Social History Social History Are you a primary dialysis patient care technician to a significant other at home: No Do you presently have visiting nurse or other home services: No Patient Tobacco Use Status: Former Tobacco user Tobacco use type: Cigarette Years Smoked: 19 Use of substances other than those prescribed or required for medical reasons: No Have you been hit, kicked, punched, or otherwise hurt by someone within the past year? If so, by whom?: No Spiritual Healthcare Practices: no Episcopalian Healthcare Practices: no Cultural Healthcare Practices: no Are you DNR?: No Advance Directives on File: No FDLMP: n/a Poor oral hygiene: No Current occupational status: retired Meds Allergies Allergy/AdvReac Type Severity Reaction Status Date / Time bacitracin (From Neosporin Allergy Intermediate Blister Verified 03/15/25 06:25 (voj-[id number])) house dust Allergy Intermediate Itchy Eyes Verified 03/15/25 06:25 latex Allergy Intermediate Redness of Verified 03/15/25 06:25 Skin neomycin (From Neosporin Allergy Intermediate Blister Verified 03/15/25 06:25 (rrc-pah-avfmu)) polymyxin B (From Neosporin Allergy Intermediate Blister Verified 03/15/25 06:25 ([id number]-[id number])) Home Medications ?Medication ?Instructions ?Recorded ?Confirmed ?Last Taken ?Type amlodipine 5 mg tablet 5 mg PO QAM 11/01/24 03/10/25 03/15/25 History gabapentin 100 mg capsule 300 mg PO TID 11/01/24 03/10/25 03/15/25 History omeprazole 40 mg capsule,delayed 40 mg PO QAM 11/01/24 03/10/25 03/15/25 History release pravastatin 40 mg tablet 40 mg PO QAM 11/01/24 03/10/25 03/15/25 History sertraline 50 mg tablet 50 mg PO QAM 11/01/24 03/10/25 Unknown History tirzepatide (weight loss) 2.5 2.5 mg subcut QWEEK 11/01/24 03/10/25 03/04/25 History mg/0.5 mL subcutaneous pen injector (Zepbound) triamterene 37.5 1 cap PO QAM 11/01/24 03/10/25 Unknown History mg-hydrochlorothiazide 25 mg capsule zolpidem 10 mg tablet 10 mg PO BEDTIME PRN Insomnia 11/01/24 03/10/25 Unknown History aspirin 81 mg tablet,delayed 81 mg PO QAM 02/18/25 03/10/25 03/01/25 History release ibuprofen 800 mg tablet 800 mg PO TID PRN Pain 02/18/25 03/10/25 03/01/25 History Assessment and Plan Final Anesthetic Review NPO: Yes ASA Class: III Final Preanesthetic Review: No Changes in Pt Med Stat, Meds/Allgs Chart Reviewed, Consent Obtained/Reviewed and Anes Risks/Benef Reviewed Patient Risk: Intermediate Procedure Risk: Intermediate Anesthetic Plan Anesthetic Plan: MAC:, Spinal, Neuraxial Block:, Regional Block and Agree w/ Assess. and Plan Disposition: Standard PACU
[2025-02-21 12:11] LABS: MRSA Nasal PCR NEGATIVE (Negative); SA Nasal PCR NEGATIVE (Negative)
[2025-03-10 11:29] LABS: MANUAL DIFF FLAG NO
[2025-03-10 11:47] LABS: Hematocrit 42.7 % (37.0-47.0); Hemoglobin 14.1 g/dl (12.0-16.0); Imm Gran Abs Auto 0.03 X10*3/uL (0.00-0.03); Imm Gran Pct Auto 0.5 % (0.0-0.4); Lymphocytes Absolute Auto 1.8 X10*3/uL (1.2-4.9); Mean Corpuscular HGB Conc 33.0 g/dl (31.0-35.0); Mean Corpuscular Hemoglobin 29.4 pg (27.0-33.0); Mean Corpuscular Volume 89.0 fL (80.0-98.0); NRBC Abs Auto 0.000 X10*3/uL (0.0-0.012); NRBC Pct Auto 0.0 /100WBC (0.0-0.2); Platelet Count 351 X10*3/uL (160-400); Red Blood Count 4.80 X10*6/uL (4.20-5.50); White Blood Count 6.5 X10*3/uL (4.8-10.8)
[2025-03-10 12:08] LABS: Hemoglobin A1C 136.0921 umol/L; Total Hemoglobin (HGBA1C) 4028.5421 umol/L
[2025-03-10 12:16] LABS: Anion Gap 12 (12-20); Blood Urea Nitrogen 22 mg/dL (9-16); Calcium 9.6 mg/dL (8.4-10.2); Carbon Dioxide 30 mmol/L (22-29); Chloride 104 mmol/L (96-108); Creatinine Clr Calc Pharmacy 69.4; Estimated Glomerular Filt Rate > 60; Potassium 3.4 mmol/L (3.3-5.1); Sodium 143 mmol/L (135-145)
[2025-03-15] VITALS (19 sets, daily range): BP systolic 92–150; BP diastolic 34–73; PULSE 58–71; RESP 16–18; TEMP 36.1–36.6; O2SAT 95–99; BMI 38.7
--- NOTE | ~2025-03-15 | XR_ITS ---
EXAMINATION: XR KNEE, LEFT CLINICAL INFORMATION: lt tka COMPARISON: November 01, 2024 TECHNIQUE: AP and lateral views of the left knee. FINDINGS: Prosthetic components of the total knee arthroplasty are appropriately aligned. No periprosthetic fracture. Gas from recent surgery is present in the joint and surrounding soft tissues. A joint effusion/hemarthrosis is present. XR/XR knee LT 2V IMPRESSION: Postop total knee arthroplasty Electronically signed by: Korey Aviles MD 03/15/2025 11:17 AM EDT
[2025-03-15] MEDS: Lactated Ringers 1,000 ML 100 ML IVCONT ×2 (06:29→13:46)
[2025-03-15 06:45] LABS: Hematocrit 42.5 % (37.0-47.0); Hemoglobin 14.0 g/dl (12.0-16.0)
--- NOTE | 2025-03-15 07:22 | MHC.SHP ---
Pre-Procedural Eval Section A - 24 Hr Update-Section A only Date of Service: 03/15/25 The patient is an INPATIENT: No Changes since office visit: No Cold of Flu in the past 2 weeks, No New Medical Problems, No Changes in Medication and No Patient answered all questions The patient has been examined within 24 hours of the surgical procedure. The History & Physical has been completed within 30 days and I have reviewed it.: Yes Section B - Complete if H&P > 30 days Chief Complaint: rt tka Allergies: Allergies Allergy/AdvReac Type Severity Reaction Status Date / Time bacitracin (From Neosporin Allergy Intermediate Blister Verified 03/15/25 06:25 ([id number])) house dust Allergy Intermediate Itchy Eyes Verified 03/15/25 06:25 latex Allergy Intermediate Redness of Verified 03/15/25 06:25 Skin neomycin (From Neosporin Allergy Intermediate Blister Verified 03/15/25 06:25 ([id number])) polymyxin B (From Neosporin Allergy Intermediate Blister Verified 03/15/25 06:25 ([id number])) Plan I have reviewed the history and physical and performed a pertinent physical examination on my patient. No changes have occurred unless specified. Time Spent With Patient Time: Total time managing care of this patient today ____ minutes.
--- NOTE | 2025-03-15 07:49 | MHC.SHP ---
Pre-Procedural Eval Section A - 24 Hr Update-Section A only Date of Service: 03/15/25 The patient is an INPATIENT: No Changes since office visit: No Cold of Flu in the past 2 weeks, No New Medical Problems, No Changes in Medication and No Patient answered all questions The patient has been examined within 24 hours of the surgical procedure. The History & Physical has been completed within 30 days and I have reviewed it.: Yes Section B - Complete if H&P > 30 days Chief Complaint: rt tka Allergies: Allergies Allergy/AdvReac Type Severity Reaction Status Date / Time bacitracin (From Neosporin Allergy Intermediate Blister Verified 03/15/25 06:25 ([id number])) house dust Allergy Intermediate Itchy Eyes Verified 03/15/25 06:25 latex Allergy Intermediate Redness of Verified 03/15/25 06:25 Skin neomycin (From Neosporin Allergy Intermediate Blister Verified 03/15/25 06:25 ([id number]-[id number])) polymyxin B (From Neosporin Allergy Intermediate Blister Verified 03/15/25 06:25 ([id number])) Plan I have reviewed the history and physical and performed a pertinent physical examination on my patient. No changes have occurred unless specified. Time Spent With Patient Time: Total time managing care of this patient today ____ minutes.
--- NOTE | 2025-03-15 08:23 | P.DS_ITS ---
DS: Providers Provider Date of Service: 03/16/25 Date of admission: 03/15/25 06:08 Date of discharge: 03/16/25 Primary care physician: Nicol Steve MD DS: Summary Hospital Course Hospital Course: The patient underwent a successful left total knee arthroplasty, they were transferred to PACU and then to the floor to recover. During their stay, their vitals were stable, afebrile at 97.2. Labs were unremarkable, H/H 11.5/35.3. POD 1 they were started on Lovenox for DVT ppx, they also received Physical Therapy services twice a day. Prior to discharge, their dressing was clean dry and intact, and the plan was to be discharged to [facility] for additional physical therapy before safe discharge home. -Bandage Care: -DO NOT remove the bandage -Keep Bandage clean,dry and intact -Do not get the bandage wet: -No tub bath, pools or hot tubs -If there are any concerns regarding the bandage please call orthopedics: [phone] -Knee Precautions: -Refrain from putting pillows under the knee -Keep leg straight while resting the knee -Avoid low chairs and deep couches -Use supportive shoes with nonslip soles -Physical Therapy: -Patient is WBAT with the use of a walker -Range of Motion: Bending and straightening the knee -Strengthening: Quadriceps and hip muscles -Walking: Gradually increasing distance with walker -Ankle pumps and incentive spirometry to limit the risk of blood clot -Diet: -Resume regular diet as tolerated. -Drink plenty of fluids and eat a high-fiber foods to avoid constipation -This is a common side effect of pain medication) -Take stool softeners as prescribed -Blood Clot Prevention: -Take the prescribed blood thinner as directed for 6 weeks -Perform ankle pumps and walk frequently with the walker and assistance if needed -Report calf pain, swelling, or shortness of breath immediately Time Attestation Discharge Coordination Time (in mins): 30 Quality: Safe Use of Opioids Does Pt have an Active Cancer Diagnosis on the Problem List?: No Quality: Stroke Does the patient have a stroke diagnosis?: No Physical Exam Vital Signs: Vital Signs: Last Vital Signs Temp 97.9 F 03/15/25 06:56 Pulse 63 03/15/25 06:56 Resp 18 03/15/25 06:56 BP 135/50 L 03/15/25 06:56 Pulse Ox 95 03/15/25 06:56 O2 Del Method Room Air 03/15/25 06:56 BMI result Body Mass Index 38.7 Const: General: cooperative, healthy appearing and no acute distress Resp: Effort & Inspection: normal respiratory effort and able to speak in complete sentences Cardio: Rate: regular rate Peripheral pulses: Peripheral pulses 2+ throughout GI: Palpation (GI): Soft to palpation Skin: Lesions: no lesions Rashes: no rashes Extrem: Other: Right knee dressing is c/d/i. Able to dorsi/plantar flex. Calf is supple and nontender. Sensation intact. Pedal pulse intact. DS: Data Data Completed and Pending Labs on day of discharge: Laboratory Results - last 24 hr 03/15/25 06:32 Hgb 14.0 Hct 42.5 Discharge Plan Discharge Patient Disposition: Home, Self-Care Referrals: Estrada Guillen PA-C [Physician Geodetic Engineer, Orthopedics] - 03/31/25 2:00 pm Discharge Medications: New celecoxib 200 mg Capsule 200 mg PO BID 30 Days Qty: 60 0RF sennosides [Senna Lax] 8.6 mg Tablet 17.2 mg PO BEDTIME 30 Days Qty: 60 0RF acetaminophen 325 mg Tablet 650 mg PO Q6H PRN (Reason: Pain, Mild 1-3,Fever,Headache) 30 Days Qty: 240 0RF oxycodone 5 mg Tablet 10 mg PO Q4H PRN (Reason: Pain, Moderate(Pain Scale 4-6)) 7 Days Qty: 42 0RF Rx Instructions: Partial Fill upon patient request. enoxaparin 40 mg/0.4 mL Syringe 40 mg subcut Q24H 42 Days Qty: 16.8 0RF Continued (DME) Folding Front Wheeled walker See Rx Instructions .ROUTE .MEDSUPPLY Qty: 1 0RF Rx Instructions: Duration: 99 days (DME) Raised toilet seat w handrails See Rx Instructions .ROUTE .MEDSUPPLY Qty: 1 0RF Rx Instructions: duration - 99 days clobetasol 0.05 % ointment 1 appl topical BID cholecalciferol (vitamin D3) [Vitamin D3] 125 mcg (5,000 unit) Tablet 125 mcg PO DAILY gabapentin 100 mg capsule 300 mg PO TID Zepbound 2.5 mg/0.5 mL pen injector 2.5 mg subcut TH Rx Instructions: takes on Fridays pravastatin 40 mg tablet 40 mg PO QAM sertraline 50 mg tablet 50 mg PO QAM zolpidem 10 mg tablet 10 mg PO BEDTIME PRN (Reason: Insomnia) triamterene-hydrochlorothiazid 37.5-25 mg capsule 1 cap PO QAM omeprazole 40 mg capsule,delayed release(DR/EC) 40 mg PO QAM Discontinued ibuprofen 800 mg Tablet 800 mg PO TID PRN (Reason: Pain) aspirin [Aspirin Low-Strength] 81 mg Tablet,Delayed Release (Dr/Ec) 81 mg PO Q48H No Action amlodipine 5 mg tablet 5 mg PO QAM Discharge Orders: Discharge Order (Routine); Ordered 03/16/25 Ordered By: Katie Mascorro Diet: Advance to usual diet Activity on Discharge: Use cane or walker Stand Alone Forms: Patient Portal Discharge page Activity Restrictions/Additional Instructions: Physical Therapy for ROM 0-120, quad strength, gait training. Use walker for ambulation Limit stair climbing No shower or tub bath No driving for 6 weeks Continue anticoagulant Keep Aquacel dressing clean, dry and intact. Follow up with orthopedics in 2 weeks -Bandage/Incision Site Care: -Ice 20mins at a time -Make sure you use a towel or cloth on your skin as a barrier -DO NOT remove the bandage -Keep Bandage clean, dry and intact -Do not get the bandage wet: -No tub bath, pools or hot tubs -If there are any concerns regarding the bandage please call orthopedics: [phone] -Knee Precautions: -Refrain from putting pillows under the knee -Keep leg straight while resting the knee -Avoid low chairs and deep couches -Use supportive shoes with nonslip soles -Physical Therapy: -Patient is WBAT with the use of a walker -Range of Motion: 0-120 degrees. -Strengthening: Quadriceps and hip muscles -Walking: Gait training and gradually increasing distance with walker -Ankle pumps and incentive spirometry to limit the risk of blood clot -Diet: -Resume regular diet as tolerated. -Drink plenty of fluids and eat a high-fiber foods to avoid constipation -This is a common side effect of pain medication) -Take stool softeners as prescribed -Blood Clot Prevention: -Take the prescribed blood thinner as directed for 6 weeks -Perform ankle pumps and walk frequently with the walker and assistance if needed -Report calf pain, swelling, or shortness of breath immediately Print Language: Armenian
--- NOTE | 2025-03-15 09:53 | P.BOP_ITS ---
Brief Operative Note Date of Service: 03/15/25 Pre-op diagnosis: Left knee OA Post-op diagnosis: same Procedure: Left TKA Implants: [place] Triathlon 3//16ps/29a cemented posterior stabilized Surgeon: Amadeo Arnold MD Anesthesia: regional and spinal Was an Director Medical Writing used for this Procedure?: Yes Director Medical Writing: Estrada Guillen Estimated blood loss (mL): 25 Tourniquet time (min): 75 IV fluids (mL): 1,000 Pathology: other Condition: stable Disposition: PACU
--- NOTE | 2025-03-15 13:24 | PM.IMCN ---
History of Present Illness Data of Consult Service Date: 03/15/25 Primary Care Provider: Nicol Steve MD HPI Reason for consult: htn 74F PMH obesity, OA, htn, hld, chornic constipation, lichen sclerosis admitted for elective left TKR. Postoperatively, having some left knee pain and itchiness in perineal area due to lichen sclerosis. She uses clobetasol ointment. Denies shortness breath, chest pain, fever, chills. Review of Systems Review of Systems: Yes all other systems are reviewed and are negative COUNTS INCLUDE 234 BEDS AT THE [facility] Medical History GERD (gastroesophageal reflux disease) Fatty liver DARLIN (obstructive sleep apnea) Urinary incontinence Osteopenia Osteoarthritis Obesity Lumbar radiculopathy Depression Hyperlipidemia Hypertension Functional capacity: uses cane/walker Surgical History Hx of left breast biopsy Hx of tubal ligation History of open reduction and internal fixation (ORIF) procedure History of esophagogastroduodenoscopy (EGD) H/O colonoscopy Hx of cholecystectomy Social History Are you a primary morning caregiver to a significant other at home: No Do you presently have visiting nurse or other home services: No Patient Tobacco Use Status: Former Tobacco user Tobacco use type: Cigarette Years Smoked: 19 Use of substances other than those prescribed or required for medical reasons: No Have you been hit, kicked, punched, or otherwise hurt by someone within the past year? If so, by whom?: No Spiritual Healthcare Practices: no Judaism Healthcare Practices: no Cultural Healthcare Practices: no Are you DNR?: No Advance Directives on File: No FDLMP: n/a Poor oral hygiene: No Current occupational status: retired Meds Allergies Allergy/AdvReac Type Severity Reaction Status Date / Time bacitracin (From Neosporin Allergy Intermediate Blister Verified 03/15/25 06:25 ([id number])) house dust Allergy Intermediate Itchy Eyes Verified 03/15/25 06:25 latex Allergy Intermediate Redness of Verified 03/15/25 06:25 Skin neomycin (From Neosporin Allergy Intermediate Blister Verified 03/15/25 06:25 ([id number])) polymyxin B (From Neosporin Allergy Intermediate Blister Verified 03/15/25 06:25 ([id number])) Active Medications: Current Medications Acetaminophen (Acetaminophen 325 Mg Tablet) 650 mg PO Q6H PRN PRN Reason: Pain, Mild 1-3,fever,headache Celecoxib (Celecoxib 200 Mg Capsule) 200 mg PO BID АНДРЕЙ Enoxaparin Sodium (Enoxaparin Sodium 40 Mg/0.4 Ml Syringe) 40 mg SUBCUT Q24H АНДРЕЙ Gabapentin (Gabapentin 300 Mg Capsule) 300 mg PO TID АНДРЕЙ Hydromorphone HCl (Hydromorphone Hcl 0.5 Mg/0.5 Ml Syringe) 0.25 mg IVPUSH Q4H PRN; Protocol PRN Reason: Pain, Severe (Pain Scale 7-10) Lactated Ringer's (Lr) 1,000 mls @ 100 mls/hr IVCONT .Q10H АНДРЕЙ Stop: 03/16/25 08:00 Cefazolin Sodium 3 gm/ Sodium (Chloride) 100 mls @ 200 mls/hr IV POSTOP ONE Stop: 03/15/25 13:43 Omeprazole (Omeprazole 40 Mg Capsule.Dr) 40 mg PO QAM АНДРЕЙ Ondansetron HCl (Ondansetron Hcl 4 Mg/2 Ml Vial) 4 mg IVPUSH Q8H PRN PRN Reason: Nausea and Vomiting Oxycodone HCl (Oxycodone Hcl Immed Release 5 Mg Tablet) 5 mg PO Q4H PRN PRN Reason: Pain, Moderate(Pain Scale 4-6) Oxycodone HCl (Oxycodone Hcl Er 10 Mg Tab.Er.12h) 10 mg PO BID [facility] Senna (Sennosides 8.6 Mg Tablet) 17.2 mg PO BEDTIME АНДРЕЙ Sertraline HCl (Sertraline Hcl 50 Mg Tablet) 50 mg PO QAM [facility] Sodium Chloride (0.9 % Sodium Chloride Flush 3 Ml Syringe) 3 ml IVFLUSH QSHIFT АНДРЕЙ Zolpidem Tartrate (Zolpidem Tartrate 5 Mg Tablet) 10 mg PO BEDTIME PRN PRN Reason: Insomnia Home Medications ?Medication ?Instructions ?Recorded ?Confirmed ?Last Taken ?Type amlodipine 5 mg tablet 5 mg PO QAM 11/01/24 03/10/25 03/15/25 History gabapentin 100 mg capsule 300 mg PO TID 0403/10/25 03/15/25 History omeprazole 40 mg capsule,delayed 40 mg PO QAM 11/01/24 03/10/25 03/15/25 History release pravastatin 40 mg tablet 40 mg PO QAM 11/01/24 03/10/25 03/15/25 History sertraline 50 mg tablet 50 mg PO QAM 11/01/24 03/10/25 Unknown History tirzepatide (weight loss) 2.5 2.5 mg subcut QWEEK 11/01/24 03/10/25 03/04/25 History mg/0.5 mL subcutaneous pen injector (Zepbound) triamterene 37.5 1 cap PO QAM 11/01/24 03/10/25 Unknown History mg-hydrochlorothiazide 25 mg capsule zolpidem 10 mg tablet 10 mg PO BEDTIME PRN Insomnia 11/01/24 03/10/25 Unknown History aspirin 81 mg tablet,delayed 81 mg PO QAM 02/18/25 03/10/25 03/01/25 History release ibuprofen 800 mg tablet 800 mg PO TID PRN Pain 02/18/25 03/10/25 03/01/25 History clobetasol 0.05 % topical ointment topical BID 03/15/25 Unknown History Physical Exam Vital Signs and Narrative: Vital Signs: Last Vital Signs Temp 97.4 F 03/15/25 12:40 Pulse 61 03/15/25 12:45 Resp 16 03/15/25 12:45 BP 140/57 H 03/15/25 12:45 Pulse Ox 98 03/15/25 12:45 O2 Del Method Room Air 03/15/25 12:45 BMI result Body Mass Index 38.7 74F PMH obesity, OA, htn, hld, chornic constipation, lichen sclerosis admitted for elective left TKR Left TKR Management per ortho Hypertension Would monitor for now and restart amlodipine, triamterene hydrochlorothiazide if elevated Lichen sclerosis Clobetasol ointment Hyperlipidemia Statin Mood disorder Zoloft Obesity On Zepbound as outpatient Results Labs 03/15/25 06:32 03/10/25 11:28 Imaging Radiologist's Impressions: Impressions Knee X-Ray 03/15/25 10:01 IMPRESSION: Postop total knee arthroplasty Electronically signed by: Korey Aviles MD 03/15/2025 11:17 AM EDT RP
--- NOTE | 2025-03-15 14:20 | PHA.MEDREC ---
Addendum entered by Safia Mark RPh 03/15/25 14:28: MED REC WAS REVIEWED BY [facility] Original Note: Pharmacy Consult ? Medication Reconciliation Pharmacy has reviewed the medication reconciliation done by nursing. Patient had a list of her medications with her patient confirmed Zepboud every . patient states she pays out of pocket for, Asprin 81 mg is q 48 hours. Patient had her morning medications today.
[2025-03-15] MEDS: 0.9 % Sodium Chloride Flush 3 ML SYRINGE IVFLUSH (15:21)
[2025-03-15] MEDS: oxyCODONE HCl Immed Release 5 MG TABLET PO (15:32)
--- NOTE | 2025-03-15 15:52 | PC.NURSE ---
patient is asking if pain meds doses could be increased,NICHOLAS Dye notified
[2025-03-15] MEDS: oxyCODONE HCl ER 10 MG TAB.ER.12H PO (21:10)
[2025-03-15] MEDS: Betamethasone Dip Aug 0.05% Cr 15 GM TUBE 1 APPL TOPICAL (21:14)
[2025-03-16] MEDS: Lactated Ringers 1,000 ML 100 ML IVCONT (00:34)
[2025-03-16] MEDS: oxyCODONE HCl Immed Release 5 MG TABLET 10 MG PO ×5 (02:45→18:42)
[2025-03-16 02:46] VITALS: BP 133/60; PULSE 65; RESP 18; TEMP 36.2; O2SAT 98
[2025-03-16 06:28] LABS: MANUAL DIFF FLAG NO
[2025-03-16 06:36] LABS: Hematocrit 35.3 % (37.0-47.0); Hemoglobin 11.5 g/dl (12.0-16.0); Imm Gran Abs Auto 0.03 X10*3/uL (0.00-0.03); Imm Gran Pct Auto 0.4 % (0.0-0.4); Lymphocytes Absolute Auto 1.3 X10*3/uL (1.2-4.9); Mean Corpuscular HGB Conc 32.6 g/dl (31.0-35.0); Mean Corpuscular Hemoglobin 29.3 pg (27.0-33.0); Mean Corpuscular Volume 89.8 fL (80.0-98.0); NRBC Abs Auto 0.000 X10*3/uL (0.0-0.012); NRBC Pct Auto 0.0 /100WBC (0.0-0.2); Platelet Count 289 X10*3/uL (160-400); Red Blood Count 3.93 X10*6/uL (4.20-5.50); White Blood Count 8.2 X10*3/uL (4.8-10.8)
[2025-03-16] MEDS: oxyCODONE HCl ER 10 MG TAB.ER.12H PO (06:48)
[2025-03-16] MEDS: Betamethasone Dip Aug 0.05% Cr 15 GM TUBE 1 APPL TOPICAL (06:50)
[2025-03-16 07:03] LABS: Anion Gap 11 (12-20); Blood Urea Nitrogen 21 mg/dL (9-16); Calcium 8.4 mg/dL (8.4-10.2); Carbon Dioxide 30 mmol/L (22-29); Chloride 105 mmol/L (96-108); Creatinine Clr Calc Pharmacy 81.9; Estimated Glomerular Filt Rate > 60; Potassium 3.8 mmol/L (3.3-5.1); Sodium 142 mmol/L (135-145)
--- NOTE | 2025-03-16 07:44 | PM.PNORT ---
Subjective Subjective Date of Service: 03/16/25 Interval history: POD1 s/p LTKA Patient is resting in bed comfortably No overnight events Pain is managed - -Block is still in effect: reports N&T in left foot No additional complaints Physical Exam Vital Signs: Vital Signs: Last Vital Signs Temp 97.2 F 03/16/25 02:46 Pulse 65 03/16/25 02:46 Resp 18 03/16/25 02:46 BP 133/60 03/16/25 02:46 Pulse Ox 98 03/16/25 02:46 O2 Del Method Room Air 03/16/25 02:46 BMI result Body Mass Index 38.7 Const: General: cooperative, healthy appearing and no acute distress Resp: Effort & Inspection: normal respiratory effort and able to speak in complete sentences Cardio: Rate: regular rate Peripheral pulses: Peripheral pulses 2+ throughout GI: Palpation (GI): Soft to palpation Skin: Lesions: no lesions Rashes: no rashes Extrem: Other: left knee dressing is c/d/i. Able to dorsi/plantar flex. Calf is supple and nontender. Reports numbness and tingling in the left foot. Pedal pulse intact. Procedures Date of Service Date of Service: 03/16/25 Progress Note: A&P Assessment and plan (1) Status post total knee replacement, left: Status: Acute Plan Continue pain mgmnt Begin Lovenox for dvt ppx due to BMI >40.0 begin PT for LTKA Dispo planning-Pending PT eval, pain mgmnt - patient does not have help at home, obese, deconditioned - Will need STR Time Spent With Patient Time: Total time managing care of this patient today ____ minutes. Quality Stroke Does the patient have a stroke diagnosis?: No VTE Prior VTE?: No VTE Risk Level:: Medical - moderate - high VTE Device Contraindication: N/A - Device Ordered VTE Drug Contraindication: N/A - Med Ordered
[2025-03-16 08:00] VITALS: BP 122/56; PULSE 68; RESP 16; TEMP 36.2; O2SAT 98
--- NOTE | 2025-03-16 08:40 | HO.POSTANES ---
Post Anesthesia Evaluation Post Anesthesia Evaluation Date of Service: 03/16/25 Vital Signs: Vital Signs Temp Pulse Resp BP Pulse Ox O2 Del Method 03/16/25 08:00 97.2 F 68 16 122/56 L 98 Room Air 03/16/25 02:46 97.2 F 65 18 133/60 98 Room Air 03/15/25 23:00 97.5 F 70 18 128/60 96 Room Air Anesthesia: Spinal Mental Status: Awake Pain Control: Satisfactory Nausea/Vomiting: None Hydration: Adequate Anesthesia-Related Issues: No Anes. Related Issues
--- NOTE | 2025-03-16 09:50 | MHC.CM.PN ---
pt lives with dgter and kalyan pt has a heel stiffener pt has been accepted at [facility] when dcd
--- NOTE | 2025-03-16 11:36 | MHC.CM.PN ---
pt to be dcd today at 3;00 to [facility] pt will notify family
[2025-03-16 12:00] VITALS: BP 131/60; PULSE 66; RESP 16; TEMP 36.2; O2SAT 99
--- NOTE | 2025-03-16 13:53 | PC.NURSE ---
PA in this morning to change dsg, upon re assessment a mod amount of bloody drainage noted on dsg, photo sent to PA and per DR Rodriguez instruction will cover with sherice wrap and move forward with 3pm dc to rehab
[2025-03-16 15:40] VITALS: BP 105/48; PULSE 69; RESP 16; TEMP 36.7; O2SAT 96
--- NOTE | 2025-03-18 08:50 | P.OP_ITS ---
Operative Note Operative Note Date of Service: 03/15/25 Narrative: Date of Service: 03/15/25 Pre-op diagnosis: Left knee OA Post-op diagnosis: same Procedure: Left TKA Implants: [place] Triathlon 3/4/16ps/29a cemented posterior stabilized Surgeon: Amadeo Arnold MD Anesthesia: regional and spinal Was an Vice President For Philanthropy used for this Procedure?: Yes Vice President For Philanthropy: Estrada Guillen Estimated blood loss (mL): 25 Tourniquet time (min): 75 IV fluids (mL): 1,000 Pathology: other Condition: stable Disposition: PACU Procedure in detail: The patient was brought to the operating room and prepped and draped in standard sterile fashion. A time-out was called to identify proper site proper procedure proper surgeon and IV antibiotics were administered. 1 g of IV tranexamic acid was administered. I began by making a midline incision to the retinaculum and performed a medial parapatellar arthrotomy. The patella was translated laterally and the knee was flexed up. There was tricompartmental eburnation and varus deformity with medal bone loss. I performed a small medial peel and resected the infrapatellar fat pad. [place]'s line was then used to drill my intramedullary femoral guide and my distal femur cut of 10 mm was made in 5 degrees of valgus while protecting the soft tissues. I then measured a # 3 femur and placed my cutting guide and made my anterior posterior and chamfer cuts protecting the soft tissues at all times. I then made my box but removing the PCL. Once I was satisfied with my cuts I turned my attention to the tibia. I removed the meniscus medially and laterally and , using an external cutting guide, in line with the tibial crest and the third ray, I made my distal tibial cut in 0 deg slope of while protecting the posterior soft tissues at all times. An extension block was used to confirm appropriate amount of bony resection. I then sized a #4 tibia and once I was satisfied that there was complete tibial coverage I placed my trial and with the trial femur in place took the knee through range of motion. I was satisfied with the extension and flexion as well as the balance at 0, 30 and 90 degrees. I then turned my attention to the patella where I removed 1 cm from the undersurface of the patella and then trialed a 29a patellar button. Again the knee was taken through range of motion I was satisfied with the tracking. I then prepared the tibia with a drill and punch. A femoral bone plug was placed and the knee was irrigated copiously. 2 bags of bone cement was mixed on the back table using standard 3rd gen cementation technique. I then cemented the patella, tibia and femur in standard fashion. Axial compression and a clamp were used while the cement dried. Once the cement was hard on tthe back table all excess cement was removed and I trialed different inserts until I selected a #16ps insert. The final insert was placed and local TXA was administered. The knee was then closed with a running Quill suture, a 3 0 Vicryl and steve on the skin. Patient was then placed in sterile dressing and brought to recovery room in stable condition there were no known complications.l
== END 2025-03-16 19:00 ==
LOC: HO.SSS 05:55 → HO.SSSA 08:28 → HO.S3 15:21
PROVIDERS: Absent Provider Physician Assistant; PCP Family Medicine; Visit Provider Orthopaedic Surgery
PROC: (CPT 27447; principal; 2025-03-15 07:30)
DX: M17.12 Unilateral primary osteoarthritis, left knee (principal); M25.562 Pain in left knee; R26.89 Other abnormalities of gait and mobility; R26.2 Difficulty in walking, not elsewhere classified; E66.01 Morbid (severe) obesity due to excess calories; Z68.41 Body mass index [BMI] 40.0-44.9, adult; I10 Essential (primary) hypertension; E78.5 Hyperlipidemia, unspecified; E11.9 Type 2 diabetes mellitus without complications; G47.33 Obstructive sleep apnea (adult) (pediatric); Z99.89 Dependence on other enabling machines and devices; Z79.82 Long term (current) use of aspirin; Z79.85 Long-term (current) use of injectable non-insulin antidiabetic drugs; Z79.899 Other long term (current) drug therapy; Z88.3 Allergy status to other anti-infective agents; Z91.040 Latex allergy status; Z87.891 Personal history of nicotine dependence; Z98.890 Other specified postprocedural states
CPT/HCPCS: 27447; 36415; 73560; 80048; 83036; 85014; 85018; 85025; 86850; 86900; 86901; 87640; 87641; 88305; 88311; 97116; 97162; C1713; C1776; J0131; J0665; J0690; J1100; J1171; J1650; J2003; J2004; J2250; J2405; J2704; J3010; J7120

== ENCOUNTER 2025-03-15 06:08 | Outpatient (BNV) | payer MEDICARE, OTHER, SELFPAY | END 2025-03-15 10:23 | PROVIDERS: Absent Provider Physician Assistant; Admitting Provider Physician Assistant; PCP Family Medicine; Visit Provider Radiology Diagnostic Radiology | DX: M25.562 Pain in left knee (principal); Z96.652 Presence of left artificial knee joint | CPT/HCPCS: 73560 ==

== ENCOUNTER → 2025-03-15 06:08 | Outpatient (BNV) | payer MEDICARE, OTHER, SELFPAY | PROVIDERS: Absent Provider Physician Assistant; Admitting Provider Physician Assistant; PCP Family Medicine; Visit Provider Internal Medicine | DX: I10 Essential (primary) hypertension (principal) | CPT/HCPCS: 99221 ==

== ENCOUNTER → 2025-03-15 06:08 | Outpatient (BNV) | payer MEDICARE, OTHER, SELFPAY | PROVIDERS: Absent Provider Physician Assistant; Admitting Provider Physician Assistant; PCP Family Medicine; Visit Provider Orthopaedic Surgery | DX: Z47.1 Aftercare following joint replacement surgery (principal); Z96.652 Presence of left artificial knee joint | CPT/HCPCS: 27447; 99024 ==

== ENCOUNTER 2025-03-21 12:41 | Outpatient (AMB) | payer MEDICARE, OTHER, SELFPAY ==
--- OUTSIDE RECORDS SUMMARY | 2025-02-28 06:30 | XMS_ITS ---
Author Organization [facility] Address [address] [place] [address] Care Team Providers Care Facility Practice Specialist Name Role Phone Evi HOLBROOK, Nicol Primary Care Provider Unavailab Joanna Cagle Unavailable [phone] Encounters Encounter Location Date Provider Diagnosis [address] [address] 02/28/2025 Joanna Pedro Plan Of Treatment No Information Progress Notes * Gayle YBARRAOB:[birth year] (74 yo F)Acc No.[id number]:02/28/2025 Progress Note Patient: Mercedez LEAHY Provider: Huang Pedro DPM :1950 A ge:74 Y S ex:Female Date:02/28/2025 Address:[address] [place], [place] [phone] Pcp:Nicol Steve MD Subjective: * Chief Complaints: [...] Date: 02/28/2025 Generated for Katrinai ng/Fadavidg/eTransmitting on: 03/21/2025 01:49 PM EDT
--- OUTSIDE RECORDS SUMMARY | 2025-03-20 23:59 | XMS_ITS | Continuity of Care Document ---
Author Organization [facility] Address [address] [place] [address]- Care Team Providers Care Sql Server Architect Name Role Phone Evi HOLBROOK, Nicol Melgar Primary Care Physician Encounter [facility] NBR [id number] Date(s): 02/18/25 - 03/20/25 [facility] [address] [place] [address]- Encounter Type: Triage Allergies, Adverse Reactions, Alerts Substance Criticality Severity Reaction Reaction Severity Status Neosporin Active Dust Active Latex Active Immunizations Given and Recorded Vaccine Date Status Refusal Reason RSV vaccine preF3, recombinant 10/23/23 Recorded SARS-CoV-2(COVID-19)mRNA-LNP vac(pxx340) 10/23/23 Recorded SARS-CoV-2(COVID-19)mRNA-LNP vac(wmo133) 04/27/23 Recorded influenza virus vaccine, inactivated 04/27/23 Nael rded influenza virus vaccine, inactivated 06/02/22 Nael rded influenza virus vaccine, inactivated 04/14/21 Nael rded zoster vaccine, inactivated 11/18/22 Recorded zoster vaccine, inactivated 08/26/22 Recorded [id number] bivalent booster vax 05/08/22 Recorded SARS-CoV-2 (COVID-19) mRNA-1273 vaccine 08/13/21 R ecorded pneumococcal 23-valent vaccine 10/25/13 Recorded tetanus/diphtheria/pertussis, acel(Tdap) 10/25/13 Recorded Medications albuterol CFC free 90 mcg/inh inhalation aerosol 180 mcg, 2, inhalation, Inhalation, Every 6 hours, PRN, # 1 each, Refills 0, Tot. Refills 0, Maintenance, 11/03/24 3:19:00 PM EDT, Aerosol, Route to Pharmacy Electronically, [id number], [facility]/pharmacy #1230, 168, cm, 11/03/24 15:04:00 EDT, Height, 125, kg, 06/04/24 13:40:00 EST, Dry Weight Start Date: 11/03/24 Stop Date: 12/03/24 Status: Ordered Quantity: 1.0 Unit: each Repeat number: 1 amLODIPine 5 mg oral tablet 5 mg, 1, tablet, By Mouth, Daily, # 90 tablet, Refills 3, Tot. Refills 3, Maintenance, 09/03/24 10:30:00 AM EST, [facility] Partial fill upon patient request if [...] 5 Refills, Maintenance, 01/17/25 6:58:00 AM EDT, [id number], 30, APPLY TO AFFECTED AREA TWICE A [...] 10:30:00 AM EST, Route to Pharmacy Electronically, [facility]/pharmacy #1230, 168, cm, 09/03/24 10:07:00 EST, Height, 125, kg, 06/04/24 13:40:00 EST, Dry Weight Start Date: 09/03/24 Status: Ordered Quantity: 270.0 Unit: capsule Repeat number: 6 gabapentin 100 mg oral capsule 300 mg, 3, capsule, By Mouth, 3 times a day, X30 DAYS., # 270 capsule, Refills 5, Tot. Refills 5, Maintenance, 05/15/24 11:33:00 AM EDT, Route to Pharmacy Electronically, [facility]/pharmacy #1230, 168, cm,04/29/24 9:49:00 EDT, Height Start Date: 05/15/24 Stop Date: 11/11/24 Status: Ordered Quantity: 270.0 Unit: capsule Repeat number: 6 hydrochlorothiazide-triamterene 25 mg-37.5 mg oral capsule 1 capsule, By Mouth, Daily, # 90 capsule, 3 Refills, Maintenance, 09/03/24 10:29:00 AM EST, Capsule, [facility]/pharmacy #1230, Partial fill upon patient request if [...] 10:49:00 AM EDT, Route to Pharmacy Electronically, [id number], 168, cm, 01/24/25 14:43:00 EDT, Height, 111.5, [...] Refills, Maintenance, 10/10/24 9:08:00 AM EDT, Suspension, [facility]/pharmacy #1230, Partial fill upon patient request if [...] Refills, Maintenance, 09/03/24 10:28:00 AM EST, Tablet, [facility]/pharmacy #1230, Partial fill upon patient request if the prescription is for a schedule II opioid drug., 168, cm, 09/03/24 10:07:00 EST, Height, 125, kg, 06/04/24 13:40:00 EST, Dry Weight Start Date: 09/03/24 Status: Ordered Quantity: 90.0 Unit: tablet Repeat number: 4 sertraline 50 mg oral tablet 1 tablet, By Mouth, Daily, # 90 tablet, 3 Refills, Maintenance, 04/29/24 10:01:00 AM EDT, [facility]/pharmacy #1230, 168, cm, 04/29/24 9:49:00 EDT, Height Start Date: 04/29/24 Status: Ordered Quantity: 90.0 Unit: tablet Repeat number: 4 Vitamin D 38469 iu oral capsule 50,000 International_Units, By Mouth, [...] 0 Refills, Maintenance, 01/10/25 8:46:00 AM EDT, [facility], 168, cm, 01/03/2514:21:00 EDT, Height, 125, kg, 06/04/24 13:40:00 EST, Dry Weight Start Date: 01/10/25 Status: Ordered Quantity: 2.0 Unit: mL Repeat number: 1 zolpidem 10 mg oral tablet 1 tablet = 10 mg, By Mouth, Daily at bedtime, PRN as needed for insomnia, masspat checked, # 30 tablet, 0 Refills, Maintenance, 02/15/25 8:42:00 AM EDT, Tablet, [facility]/pharmacy #1230, Partial fill upon patient request if [...] - Primary Care Member Role: PCP Address: [address] [place] [address] [place] [address]- Telecom: Care Team Related Persons Name: PHILIP GARCÍA Insurance Providers Guarantor name: MAHESH FREYEMILY Health Plan Information #: 1 Payer: MEDICARE B Payer Identifier: Member Number: [id number] Group Number: Subscriber Identifier: [id number] Relationship to Subscriber: self Coverage Type: Coverage Verification Date: Telecom: Address: Health Plan Information #: 2 Payer: I10 MEDICARE SUPPL 2ND Payer Identifier: Member Number: [id number] Group Number: Subscriber Identifier: [id number] Relationship to Subscriber: self Coverage Type: NA Coverage Verification Date: Telecom: Address: [facility] Plan Information #: 3 Payer: FOR LIFE Payer Identifier: Member Number: [id number] Group Number: [id number] Subscriber Identifier: [id number] Relationship to Subscriber: self Coverage Type: For Life--Medicare Supplement Coverage Verification Date: Telecom: Address:
--- NOTE | 2025-03-21 12:44 | A.OFFVIS_ITS ---
Intake Visit Reasons: Bandage Check/Change: RTKA w/NE 03/15/25 Intake Note: Mercedez is a 74 year old female who presents today for a post operative bandage change after undergoing a RT TKA on 03/15/25, performed by Dr. Arnold. Patient reports that the left knee and leg feels very itchy and that she marked three spots where the drainage bleed through the bandage. She states that she does have numbness and tingling radiating up to the left hip. Patient states that she would like to discuss her pain medications. Allergies bacitracin (From Neosporin (lae-cup-lopbn)) Allergy (Intermediate, Verified 03/21/25 12:50) Blister house dust Allergy (Intermediate, Verified 03/21/25 12:50) Itchy Eyes latex Allergy (Intermediate, Verified 03/21/25 12:50) Redness of Skin neomycin (From Neosporin (nmj-azy-acnve)) Allergy (Intermediate, Verified 03/21/25 12:50) Blister polymyxin B (From Neosporin (ezd-qgj-opeke)) Allergy (Intermediate, Verified 03/21/25 12:50) Blister Medication List - Last Reconciled 03/21/25 by Estrada Guillen PA-C acetaminophen 650 mg (2 x 325 mg) PO Q6H PRN 30 days amlodipine 5 mg PO QAM celecoxib 200 mg PO BID 30 days cholecalciferol (vitamin D3) (Vitamin D3) 125 mcg PO DAILY clobetasol 0.05% 1 appl topical BID enoxaparin 40 mg (0.4 mL) subcut Q24H 42 days [Folding Front Wheeled walker Duration: 99 days] gabapentin 300 mg PO TID omeprazole 40 mg PO QAM oxycodone 10 mg (2 x 5 mg) PO Q4H PRN 7 days pravastatin 40 mg PO QAM [Raised toilet seat w handrails duration - 99 days] sennosides (Senna Lax) 17.2 mg (2 x 8.6 mg) PO BEDTIME 30 days sertraline 50 mg PO QAM tirzepatide (weight loss) (Zepbound) 2.5 mg subcut TH triamterene-hydrochlorothiazid 37.5-25 mg 1 cap PO QAM zolpidem 10 mg PO BEDTIME PRN HPI HPI Bandage Check/Change: RACHEL w/NE 03/15/25: Details: 74-year-old female returns to the office today status post left total knee arthroplasty on 03/15/[address] Arnold. She is here today for a bandage change. She is in rehab and she is overall doing well however there is some difficulty with physical therapy as she continues to have some discomfort and limitations with motion. She was taking oxycodone 10 mg but feels she may be having an reaction to this. She tried tramadol but that was not effective. [facility] Medical History GERD (gastroesophageal reflux disease) Fatty liver DARLIN (obstructive sleep apnea) Urinary incontinence Osteopenia Osteoarthritis Obesity Lumbar radiculopathy Depression Hyperlipidemia Hypertension Surgical History Hx of left breast biopsy Hx of tubal ligation History of open reduction and internal fixation (ORIF) procedure History of esophagogastroduodenoscopy (EGD) H/O colonoscopy Hx of cholecystectomy Social History Household Members: Children Housing: House Are you a primary respiratory care specialist to a significant other at home: No Do you presently have visiting nurse or other home services: No Patient Tobacco Use Status: Former Tobacco user Tobacco use type: Cigarette Years Smoked: 19 service: No Current occupational status: retired Review of Systems Const All systems reviewed & are unremarkable except as noted in HPI and below Physical Exam Extrem Other: Left knee incision is clean dry and intact no significant erythema or swelling. Calf is supple and nontender neurovascularly intact. Assessment & Plan Assessment & Plan (1) Status post total knee replacement, left: Code(s): Z96.652 - Presence of left artificial knee joint Category: Surgical Plan: Bandage was changed today which the patient tolerated well. She will continue to work with physical therapy for weightbearing as tolerated gait training and s trengthening along with range of motion. I recommend they change her from oxycodone to Vicodin 7.5/325. I also encouraged them to use hydroxyzine 10 mg b.i.d. p.r.n. itching. I stressed the importance of not taking these 2 medications together as they can cause significant drowsiness. Patient does have a postop appointment scheduled on 03/31/2025 with me in the office in which we will see her back for a postop appointment. Coding Level of Care Code Global (18751) Diagnoses Status post total knee replacement, left Z96.652
--- OUTSIDE RECORDS SUMMARY | 2025-03-21 13:50 | XMS_ITS | Patient Health Record ---
Author Organization [facility] Address [address] [place] [address] Care Team Providers Care Aircraft Load Controller Name Role Phone None, None Primary Care Provider Unavailabl e Reason For Referral No Information Plan Of Treatment No Information Insurance Providers Payer Name Payer Address Payer Phone Subscriber Number Group Number Insured Name Patient Relationship to Insured Coverage Start Date Coverage End Date ZZ DO NOT USE MEDICARE NON PAR [id number] Mercedez Hirsch Self - patient is the insured 0 [facility] [address] [place], [place] [id number] Mercedez Hirsch Self - patient is the insured 0
--- OUTSIDE RECORDS SUMMARY | 2025-03-21 13:50 | XMS_ITS | Encounter Summary ---
Author Organization [facility] Address [address] [place] [address] Phone Care Team Providers Care Test Analyst Name Role Phone Yogi Sawyer MD Primary Care Provider [phone] Encounter Details Date Type Department Care Team (Late st Contact Info) Description 03/05/2022 Ancillary Orders [address] [address] Nicol Valenzuela PA-C [address] [place] [address] Orthopedics & Sports Medicine, [place] [address] [email or web address] Injury of left wrist, subsequent encounter Social [...] encounter documented in this encounter Care Teams Test Analyst Relationship Specialty Start Date End Date Yogi Sawyer MD PCP - General Internal Medicine 02/22/22 documented as of this encounter Additional Source Comments The information contained in this document represents components of the legal health record. It is not the complete legal health record.[facility]
== END 2025-03-21 13:16 | disposition home or self-care (01) ==
LOC: HO.HOS 12:41
PROVIDERS: PCP Family Medicine; Visit Provider Physician Assistant
DX: Z96.652 Presence of left artificial knee joint (principal)
CPT/HCPCS: 99024

== ENCOUNTER → 2025-03-21 12:41 | Outpatient (BNVA) | payer MEDICARE, OTHER, SELFPAY | PROVIDERS: PCP Family Medicine; Visit Provider Physician Assistant | DX: Z47.1 Aftercare following joint replacement surgery (principal); Z96.652 Presence of left artificial knee joint | CPT/HCPCS: 99212 ==

== ENCOUNTER 2025-03-31 13:59 | Outpatient (AMB) | payer MEDICARE, OTHER, SELFPAY ==
--- OUTSIDE RECORDS SUMMARY | 2025-02-28 06:30 | XMS_ITS ---
Author Organization [facility] Address [address] [place] [address] Care Team Providers Care Cooker Process Cheese Name Role Phone Evi HOLBROOK, Nicol Primary Care Provider Unavailab Joanna Cagle Unavailable [phone] Encounters Encounter Location Date Provider Diagnosis [address] [address] 02/28/2025 Joanna Pedro Plan Of Treatment No Information Progress Notes * Gayle YBARRAOB:[birth year] (74 yo F)Acc No.[id number]:02/28/2025 Progress Note Patient: Mercedez LEAHY Provider: Huang Pedro DPM :1950 A ge:74 Y S ex:Female Date:02/28/2025 Address:[address] [place], [place] [id number] Pcp:Nicol Steve MD Subjective: * Chief Complaints: * * Medical History: Objective: * Vitals: Assessment: Plan: * Treatment: * Images: * The named appointment provid er may or may not be the originator of this progress note, and it is not deemed complete until electronically signed by the appointment provider. Sign off status: Pending * Provider: Huang Pedro DPM Date: 02/28/2025 Generated for Katrinai ng/Fadavidg/eTransmitting on: 03/31/2025 03:14 PM EDT
--- NOTE | 2025-03-31 14:06 | MHC.OFFVIS ---
Intake Visit Reasons: 2WKPO: LT TKA w/NE 03/15/25 Intake Note: Mercedez is a 74 year old woman who presents today for a post operative visit status post left TKA DOS: 03/15/[address] Arnold. At her last visit her bandage was changed. Patient reports that she is having pain most of the time, she is taking the Oxycodone which is only mildly helping. She has been discharged from the [facility] and [facility]NA has started as on 03/29/25 Allergies bacitracin (From Neosporin (mor-rqa-nsawy)) Allergy (Intermediate, Verified 03/21/25 12:50) Blister house dust Allergy (Intermediate, Verified 03/21/25 12:50) Itchy Eyes latex Allergy (Intermediate, Verified 03/21/25 12:50) Redness of Skin neomycin (From Neosporin (paw-hee-cwcil)) Allergy (Intermediate, Verified 03/21/25 12:50) Blister polymyxin B (From Neosporin (hkl-lyf-fscqa)) Allergy (Intermediate, Verified 03/21/25 12:50) Blister Medication List - Last Reconciled 03/31/25 by Estrada Guillen PA-C acetaminophen 650 mg (2 x 325 mg) PO Q6H PRN 30 days amlodipine 5 mg PO QAM celecoxib 200 mg PO BID 30 days cholecalciferol (vitamin D3) (Vitamin D3) 125 mcg PO DAILY clobetasol 0.05% 1 appl topical BID enoxaparin 40 mg (0.4 mL) subcut Q24H 42 days [Folding Front Wheeled walker Duration: 99 days] gabapentin 300 mg PO TID hydrocortisone 2.5% 1 appl topical DAILY PRN hydroxyzine HCl 10 mg PO .qhs PRN 7 days omeprazole 40 mg PO QAM oxycodone 10 mg (2 x 5 mg) PO Q4H PRN 7 days pravastatin 40 mg PO QAM [Raised toilet seat w handrails duration - 99 days] sennosides (Senna Lax) 17.2 mg (2 x 8.6 mg) PO BEDTIME 30 days sertraline 50 mg PO QAM tirzepatide (weight loss) (Zepbound) 2.5 mg subcut TH triamterene-hydrochlorothiazid 37.5-25 mg 1 cap PO QAM zolpidem 10 mg PO BEDTIME PRN HPI HPI 2WKPO: LT TKA w/NE 03/15/25: Details: Mercedez is a 74 year old woman who presents today for a post operative visit status post left TKA DOS: 03/15/[address] Arnold. At her last visit her bandage was changed. Patient reports that she is having pain most of the time, she is taking the Oxycodone which is only mildly helping. She has been discharged from the [facility] and [facility]NA has started as on 03/29/25. She has a sore on the bottom of her heel that is sore for her. [facility] Medical History GERD (gastroesophageal reflux disease) Fatty liver DARLIN (obstructive sleep apnea) Urinary incontinence Osteopenia Osteoarthritis Obesity Lumbar radiculopathy Depression Hyperlipidemia Hypertension Surgical History Hx of left breast biopsy Hx of tubal ligation History of open reduction and internal fixation (ORIF) procedure History of esophagogastroduodenoscopy (EGD) H/O colonoscopy Hx of cholecystectomy Social History Household Members: Children Housing: House Are you a primary resident care supervisor to a significant other at home: No Do you presently have visiting nurse or other home services: No Patient Tobacco Use Status: Former Tobacco user Tobacco use type: Cigarette Years Smoked: 19 service: No Current occupational status: retired Review of Systems Const All systems reviewed & are unremarkable except as noted in HPI and below Physical Exam Extrem Other: Left knee incision is clean dry and intact. No erythema or joint effusion. Range of motion is-5-85 degrees. She is able to activate the quad. Calf supple and nontender neurovascularly intact. Assessment & Plan Assessment & Plan (1) Status post total knee replacement, left: Code(s): Z96.652 - Presence of left artificial knee joint Category: Surgical Plan: [place] removed today Steri-Strips applied. The patient will continue working with physical therapy and eventually transition to outpatient therapy. I did give her a prescription for Celebrex as she was discharged from rehab without it. I also gave her a prescription for hydroxyzine to take 1 time at bedtime to help with her itching and also hydrocortisone cream as she developed a rash and has some areas of sensitive skin. She will contact me tomorrow to let me know if she needs a refill of Lovenox injections as she should be taking them for another 4 weeks. I did show her some exercises in the office today to work on flexion. Otherwise she will see us back in [address] Arnold, sooner if needed. Medications: New hydroxyzine HCl 10 mg PO .qhs PRN 7 tabs 0RF itching 7 days hydrocortisone 2.5% 1 appl topical DAILY PRN 20 grams 0RF rash Refilled celecoxib 200 mg PO BID 60 caps 0RF 30 days Coding Level of Care Code Global (46754) Diagnoses Status post total knee replacement, left Z96.652
--- OUTSIDE RECORDS SUMMARY | 2025-03-31 15:14 | XMS_ITS | Patient Health Record ---
Author Organization [facility] Address [address] [place] [address] Care Team Providers Care Mathematics Academic Chair Name Role Phone None, None Primary Care Provider Unavailabl e Reason For Referral No Information Plan Of Treatment No Information Insurance Providers Payer Name Payer Address Payer Phone Subscriber Number Group Number Insured Name Patient Relationship to Insured Coverage Start Date Coverage End Date ZZ DO NOT USE MEDICARE NON PAR [id number] Mercedez Hirsch Self - patient is the insured [address] [facility] [address] [place], [place] [id number] Mercedez Hirsch Self - patient is the insured 0
--- OUTSIDE RECORDS SUMMARY | 2025-03-31 15:14 | XMS_ITS | Encounter Summary ---
Author Organization [facility] Address [address] [place] [address] Phone Care Team Providers Care Cisco Network Engineer Name Role Phone Yogi Sawyer MD Primary Care Provider [phone] Encounter Details Date Type Department Care Team (Late st Contact Info) Description 03/05/2022 Ancillary Orders [address] [address] Nicol Valenzuela PA-C [address] [place] [address] Orthopedics & Sports Medicine, [place] [address] [email or web address] Injury of left wrist, subsequent encounter Social [...] encounter documented in this encounter Care Teams Cisco Network Engineer Relationship Specialty Start Date End Date Yogi Sawyer MD PCP - General Internal Medicine 02/22/22 documented as of this encounter Additional Source Comments The information contained in this document represents components of the legal health record. It is not the complete legal health record.[facility]
--- OUTSIDE RECORDS SUMMARY | 2025-03-31 15:14 | XMS_ITS | Encounter Summary ---
Author Organization [facility] Address [address] [place] [address] Phone Care Team Providers Care Marketing Information Analyst Name Role Phone Yogi Sawyer MD Primary Care Provider [phone] Encounter Details Date Type Department Care Team (Late st Contact Info) Description 03/05/2022 Ancillary Orders [facility] Medicine [address] [place] [address] Nicol Valenzuela PA-C [address] [place] [address] Orthopedics & Sports Medicine, [facility] [place], [place] [id number] Social History Tobacco Use Types Packs/Day Years [...] on filedocumented in this encounter Care Teams Marketing Information Analyst Relationship Specialty Start Date End Date Yogi Sawyer MD PCP - General Internal Medicine 02/22/22 documented as of this encounter Additional Source Comments The information contained in this document represents components of the legal health record. It is not the complete legal health record.[facility]
--- OUTSIDE RECORDS SUMMARY | 2025-03-31 15:15 | XMS_ITS | Clinical Summary ---
Author Organization [facility] Address [address] [place] [address] Phone Care Team Providers Care Vaccines Solutions Specialist Name Role Phone Yogi Sawyer MD Primary Care Provider [phone] Allergies Active Allergy Reactions Criticality Noted Date Comments Adhesive Unknown 01/15/2021 Latex Unknown 01/15/2021 Raqkpdep-Fxgxovfpqg-Hedgwscva Unknown 2020 Medications acetaminophen (TYLENOL) 500 MG [...] by mouth daily. Active mv,carli,iron,mn/fo lic acid/chol (QWXM-[id number]-IAWKB, PABA, ORAL) Take by mouth. Active oxyCODONE [...] 74 03/22/2022 2:00 PM EDT Temperature 36.2 C (97.2 F) 03/22/2022 1:45 PM EDT Respiratory Rate 15 03/22/2022 2:00 PM EDT [...] Booster 10/26/2023 10/25/2013 COVID-19 VACCINE (2 - season) 2024 08/13/2021 INFLUENZA VACCINE (#1) 2025 , 04/05/2020, 04/14/2019, Additional history exists PNEUMOCOCCAL VACCINES (50+ years) Completed 02/21/2020, 06/26/2016, 10/25/2013 HEPATITIS A VACCINES Aged Out No long er eligible based on patient's age to complete this topic HIB VACCINES Aged Out No longer eligi ble based on patient's age to complete this topic MENINGOCOCCAL VACCINES (ACWY) Aged Out No longer eligible based on patient's age to complete this topic MENINGOCOCCAL VACCINES (B) Aged Out N o longer eligible based on patient's age to complete this topic Medical Devices Implanted Type Area Nail Artist Device Identifier Shelf Expiration Date Model / Serial / Lot Clip Clip Right: Breast Radius Plate 3 Hole Bone Distal Volar Radial Geminus Titanium [place] - [id number] Implanted:Qty: 1 on 03/22/2022 by Chloe Rene MD at [facility] Right: Wrist [employer]LET[employer] [facility] [id number] / / Peg Bone 18x2.3mm Threaded Geminus Locking - [id number] Implanted:Qty: 5 on 03/22/2022 by Chloe Rene MD at [facility] Right: Wrist [employer] [facility] [id number] -[id number] / / Peg Bone 2.3mmx20 Threaded Geminus Locking - [id number] Implanted:Qty: 1 on 03/22/2022 by Chloe Rene MD at [facility] Right: Wrist [employer] [id number] -[id number] / / Screw Bone 10x3.5mm L Locking Cortical Geminus Titanium Fossa Specific Plating System - [id number] Implanted:Qty: 1 on 03/22/2022 by Chloe Rene MD at [facility] Right: Wrist [employer] [id number] -TS / / Screw Bone 12x3.5mm L Locking Cortical Geminus Titanium Fossa Specific Plating System - [id number] Implanted:Qty: 1 on 03/22/2022 by Chloe Rene MD at [facility] Right: Wrist [employer] [id number] -[id number] / / Screw Bone 12x3.5mm L Polyaxial Non Locking Compression Cortical Geminus Titanium Fossa Specific Plating - [id number] Implanted:Qty: 1 on 03/22/2022 by Chloe Rene MD at [facility] Right: Wrist [employer] [id number] -TS / / Insurance MEDICARE PART A & B GENERIC MEDICARE SUPPLEMENT FOR LIFE MEDICARE SUPPLEMENT MEDICARE PART A & B GENERIC MEDICARE SUPPLEMENT FOR LIFE MEDICARE SUPPLEMENT MEDICARE PART A & B GENERIC MEDICARE [place] [address] [address] [place] [address] MEDICARE SUPPLEMENT MEDICARE PART A & B GENERIC MEDICARE [place] [place] [address] MEDICARE SUPPLEMENT MEDICARE PART A & B GENERIC MEDICARE SUPPLEMENT [employer] Address: [address] MEDICARE SUPPLEMENT MEDICARE PART A & B GENERIC MEDICARE [place] [address] [place] [address] MEDICARE SUPPLEMENT MEDICARE PART A & B GENERIC MEDICARE SUPPLEMENT FOR LIFE MEDICARE SUPPLEMENT MEDICARE PART A & B GENERIC MEDICARE SUPPLEMENT Member Subscriber Plan / Payer (Ef fective 2005-Present) Name:Mercedez Ybarra Relation to Subscriber:Self Name:Mercedez Ybarra Payer ID:Not on file Group ID:Not on file Type:Indemnity Address: [address] [place] [id number] FOR LIFE MEDICARE SUPPLEMENT MEDICARE PART A & B GENERIC MEDICARE SUPPLEMENT Member Subscriber Plan / Payer (Ef fective 2005-Present) Name:Mercedez Ybarar Relation to Subscriber:Self Name:Mercedez Ybarra Payer ID:Not on file Group ID:Not on file Type:Indemnity Address: [address] MEDICARE SUPPLEMENT Advance Directives For more information, please contact: [phone] (9AM - 5PM [facility], Friday-Friday) Documents on File Type Date Recorded Patient Manager Urology Expl anation Healthcare Proxy 03/25/2022 2:49 PM Care Teams Vaccines Solutions Specialist Relationship Specialty Start Date End Date Yogi Sawyer MD PCP - General Internal Medicine 02/22/22 Additional Source Comments The information contained in this document represents components of the legal health record. It is not the complete legal health record.[facility]
--- OUTSIDE RECORDS SUMMARY | 2025-03-31 15:15 | XMS_ITS | Encounter Summary ---
Author Organization [facility] Address [address] [address] Phone Care Team Providers Care Ventilating Expert Name Role Phone Yogi Sawyer MD Primary Care Provider [phone] Encounter Details Date Type Department Care Team (Late st Contact Info) Description 03/22/2022 Procedure Pass OR Admitting Dept - Virtual Department [address] [place] [address] Social History Tobacco Use Types Packs/Day Years [...] on filedocumented in this encounter Care Teams Ventilating Expert Relationship Specialty Start Date End Date Yogi Sawyer MD PCP - General Internal Medicine 02/22/22 documented as of this encounter Additional Source Comments The information contained in this document represents components of the legal health record. It is not the complete legal health record.[facility]
--- OUTSIDE RECORDS SUMMARY | 2025-03-31 15:15 | XMS_ITS | Patient Health Record ---
Author Organization [facility] Tena tamiko Adalberto Address [address] [facility] [place] [address] Care Team Providers Care Sanitor Name Role Phone Nicol Steve MD Primary Care Provider Joanna Brown Unavailable [phone] Allergies Allergen (clinical drug ingredient) Drug/Non Drug [...] Problem Acquired hammer toe of right foot (6957586102805664) Hammer toe of right foot (M20.41) Active confirmed Problem Acquired hammer toe of left foot (5601572489173029) Hammer toe of left foot (M20.42) Active confirmed Problem Bilateral atherosclerosis of arteries of lower limbs (disorder) (70419561434290757 ) Atherosclerosis of artery of both lower extremities (I70.203) Active confirmed Vital Signs Blood pressure diastolic 84 mm Hg 12/27/2024 Height 5ft 6in in 12/27/2024 Blood pressure systolic 130 mm Hg 12/27/2024 Weight 298 lbs 12/27/2024 BMI 48.09 kg/m2 12/27/2024 Encounters Encounter Location Date Provider Diagnosis [address] [address] 04/29/2024 Joanna Perica Pain in toe of left foot M79.675 ; Atherosclerosis of artery of both lower extremities I70.203 ; Pain in toe of right foot M79.674 and Tinea unguium B35.[address] [facility] [address] 08/05/2024 Joanna Perica Atherosclerosis of artery of both lower extremities I70.203 ; Tinea unguium B35.1 ; Pain in toe of left foot M79.675 and Pain in toe of right foot M79.[address] [address] 10/18/2024 Joanna Perica Atherosclerosis of artery of both lower extremities I70.203 ; Tinea unguium B35.1 ; Pain in toe of left foot M79.675 and Pain in toe of right foot M79.[address] [address] 12/27/2024 Ojanna Perica Atherosclerosis of artery of both lower extremities I70.203 ; Tinea unguium B35.1 ; Pain in toe of left foot M79.675 and Pain in toe of right foot M79.[address] [address] 02/24/2025 Joanna Pedro Assessments Encounter Date Diagnosis (ICD [...] unguium (ICD-10 - B35.1) Plan Of Treatment No Information Insurance Providers Payer Name Payer Address Payer Phone Subscriber Number Group Number Insured Name Patient Relationship to Insured Coverage Start Date Coverage End Date Medicare National Govt Sv[employer] Inc [address] [place] [address] [id number] Mercedez Hirsch Self - patient is the insured [employer] [address] [place] [address] [id number] Mercedez Hirsch Self - patient is the insured for Life [address] [place] [id number] [phone] [id number] Mike Hirsch Spouse - patient is the spouse of the insured Medical (General) History Medical History History ICD Code osteoarthritis Back pain/Sciatica Cataracts Depression Diverticulosis Gall bladder problems Headaches High blood pressure Sciatica Measles Mumps Chicken pox Surgical History Surgery Date(Month/Year) cholecystectomy 1992 Breast Surgery, cyst
== END 2025-03-31 14:50 | disposition home or self-care (01) ==
LOC: HO.HOS 14:00
PROVIDERS: PCP Family Medicine; Visit Provider Physician Assistant
DX: Z96.652 Presence of left artificial knee joint (principal)
CPT/HCPCS: 99024

== ENCOUNTER → 2025-03-31 13:59 | Outpatient (BNVA) | payer MEDICARE, OTHER, SELFPAY | PROVIDERS: PCP Family Medicine; Visit Provider Physician Assistant | DX: Z47.1 Aftercare following joint replacement surgery (principal); Z96.652 Presence of left artificial knee joint | CPT/HCPCS: 99212 ==

== ENCOUNTER 2025-04-06 11:24 | Outpatient (REF) | payer MEDICARE, OTHER, SELFPAY ==
--- OUTSIDE RECORDS SUMMARY | 2025-02-28 06:30 | XMS_ITS ---
Author Organization [facility] Address [address] [place] [address] Care Team Providers Care Roll Scale Worker Name Role Phone Evi HOLBROOK, Nicol Primary Care Provider Unavailab Joanna Cagle Unavailable [phone] Encounters Encounter Location Date Provider Diagnosis [address] [address] 02/28/2025 Joanna Pedro Plan Of Treatment No Information Progress Notes * Gayle YBARRAOB:[birth year] (74 yo F)Acc No.[id number]:02/28/2025 Progress Note Patient: Mercedez LEAHY Provider: Huang Pedro DPM :1950 A ge:74 Y S ex:Female Date:02/28/2025 Address:[address] [place], [place] [id number] Pcp:Nicol Steve MD Subjective: * Chief Complaints: [...] Date: 02/28/2025 Generated for Katrinai ng/Fadavidg/eTransmitting on: 0 04/06/2025 02:32 PM EDT
--- NOTE | ~2025-04-06 | US_ITS ---
EXAMINATION: US TRIPLEX LOWER EXTREMITY, LEFT CLINICAL INFORMATION: [Pain post total knee arthroplasty COMPARISON: None available. TECHNIQUE: Color-flow triplex imaging with spectral analysis and compression Doppler were performed on the left lower extremity. FINDINGS: Respiratory variation, normal compression and augmented flow are noted throughout the left lower extremity. The visualized common femoral vein, superficial femoral vein, profunda femoral vein, popliteal vein and midcalf peroneal and posterior tibial venous segments show no evidence of deep venous thrombosis. US/US venous duplex LE LT IMPRESSION: No evidence of deep venous thrombosis involving the left lower extremity. Electronically signed by: Korey Aviles MD 04/06/2025 12:17 PM EDT
--- OUTSIDE RECORDS SUMMARY | 2025-04-06 14:32 | XMS_ITS | Patient Health Record ---
Author Organization [facility] Address [address] [place] [address] Care Team Providers Care Intelligence Analyst Name Role Phone None, None Primary Care Provider Unavailabl e Reason For Referral No Information Plan Of Treatment No Information Insurance Providers Payer Name Payer Address Payer Phone Subscriber Number Group Number Insured Name Patient Relationship to Insured Coverage Start Date Coverage End Date ZZ DO NOT USE MEDICARE NON PAR [id number] Mercedez Hirsch Self - patient is the insured 0 [facility] [address] [place], [place] [id number] Mercedez Hirsch Self - patient is the insured 0
--- OUTSIDE RECORDS SUMMARY | 2025-04-06 14:32 | XMS_ITS | Encounter Summary ---
Author Organization [facility] Address [address] [place] [address] Phone Care Team Providers Care Cash Analyst Name Role Phone Yogi Sawyer MD Primary Care Provider [phone] Encounter Details Date Type Department Care Team (Late st Contact Info) Description 03/05/2022 Ancillary Orders [address] [address] Nicol Valenzuela PA-C [address] [place] [address] Orthopedics & Sports Medicine, [place] [address] [email or web address] Injury of left wrist, subsequent encounter Social [...] encounter documented in this encounter Care Teams Cash Analyst Relationship Specialty Start Date End Date Yogi Sawyer MD PCP - General Internal Medicine 02/22/22 documented as of this encounter Additional Source Comments The information contained in this document represents components of the legal health record. It is not the complete legal health record.[facility]
--- OUTSIDE RECORDS SUMMARY | 2025-04-06 14:32 | XMS_ITS | Encounter Summary ---
Author Organization [facility] Address [address] [place] [address] Phone Care Team Providers Care Contract Officer Name Role Phone Yogi Sawyer MD Primary Care Provider [phone] Encounter Details Date Type Department Care Team (Late st Contact Info) Description 03/05/2022 Ancillary Orders [facility] Orthopedics & Sports Medicine [address] [place] [address] Nicol Valenzuela PA-C [address] [place] [address] Orthopedics & Sports Medicine, [facility]. [place], [place] [id number] Social History Tobacco Use Types Packs/Day Years [...] on filedocumented in this encounter Care Teams Contract Officer Relationship Specialty Start Date End Date Yogi Sawyer MD PCP - General Internal Medicine 02/22/22 documented as of this encounter Additional Source Comments The information contained in this document represents components of the legal health record. It is not the complete legal health record.[facility]
--- OUTSIDE RECORDS SUMMARY | 2025-04-06 14:33 | XMS_ITS | Encounter Summary ---
Author Organization [facility] Address [address] [address] Phone Care Team Providers Care Rent And Housing Investigator Name Role Phone Yogi Sawyer MD Primary Care Provider [phone] Encounter Details Date Type Department Care Team (Late st Contact Info) Description 03/22/2022 Procedure Pass OR Admitting Dept - Virtual Department [address] [place] [address] Social History Tobacco Use Types Packs/Day Years [...] on filedocumented in this encounter Care Teams Rent And Housing Investigator Relationship Specialty Start Date End Date Yogi Sawyer MD PCP - General Internal Medicine 02/22/22 documented as of this encounter Additional Source Comments The information contained in this document represents components of the legal health record. It is not the complete legal health record.[facility]
--- OUTSIDE RECORDS SUMMARY | 2025-04-06 14:33 | XMS_ITS | Patient Health Record ---
Author Organization [facility] Tena tamiko [place]way Address [address] [facility] [place] [address] Care Team Providers Care Jersey Knitter Name Role Phone Nicol Steve MD Primary Care Provider Joanna Brown Unavailable [phone] Allergies Allergen (clinical drug ingredient) Drug/Non Drug [...] Problem Acquired hammer toe of right foot (2138403772969328) Hammer toe of right foot (M20.41) Active confirmed Problem Acquired hammer toe of left foot (3624217414678556) Hammer toe of left foot (M20.42) Active confirmed Problem Bilateral atherosclerosis of arteries of lower limbs (disorder) (95042626546173411 ) Atherosclerosis of artery of both lower extremities (I70.203) Active confirmed Vital Signs Blood pressure diastolic 84 mm Hg 12/27/2024 Height 5ft 6in in 12/27/2024 Blood pressure systolic 130 mm Hg 12/27/2024 Weight 298 lbs 12/27/2024 BMI 48.09 kg/m2 12/27/2024 Encounters Encounter Location Date Provider Diagnosis [address] [address] 04/29/2024 Joanna Perica Pain in toe of left foot M79.675 ; Atherosclerosis of artery of both lower extremities I70.203 ; Pain in toe of right foot M79.674 and Tinea unguium B35.[address] [facility] [address] 08/05/2024 Joanna Perica Atherosclerosis of artery of both lower extremities I70.203 ; Tinea unguium B35.1 ; Pain in toe of left foot M79.675 and Pain in toe of right foot M79.[address] [address] 10/18/2024 Joanna Perica Atherosclerosis of artery of both lower extremities I70.203 ; Tinea unguium B35.1 ; Pain in toe of left foot M79.675 and Pain in toe of right foot M79.[address] [address] 12/27/2024 Joanna Perica Atherosclerosis of artery of both lower extremities I70.203 ; Tinea unguium B35.1 ; Pain in toe of left foot M79.675 and Pain in toe of right foot M79.[address] [address] 02/24/2025 Joanna Pedro Assessments Encounter Date Diagnosis [...] Inc [address] [place] [address] [id number] Mercedez Hirsch Self - patient is the insured [employer]HI [address] [place] [address] [phone] [id number] Mercedez Hirsch Self - patient is the insured for Life [address] [place] [id number] Mike Hirsch Spouse - patient is the spouse of the insured Medical (General) History Medical History History ICD Code osteoarthritis Back pain/Sciatica Cataracts Depression Diverticulosis Gall bladder problems Headaches High blood pressure Sciatica Measles Mumps Chicken pox Surgical History Surgery Date(Month/Year) cholecystectomy 1992 Breast Surgery, cyst
--- OUTSIDE RECORDS SUMMARY | 2025-04-06 14:33 | XMS_ITS | Clinical Summary ---
Author Organization [facility] Address [address] [place] [address] Phone Care Team Providers Care Hvac R Tech Name Role Phone Yogi Sawyer MD Primary Care Provider [phone] Allergies Active Allergy Reactions Criticality Noted Date Comments Adhesive Unknown 01/15/2021 Latex Unknown 01/15/2021 Dddmffwr-Pbszqsiuig-Eflynvdav Unknown 2020 Medications acetaminophen (TYLENOL) 500 MG [...] by mouth daily. Active mv,carli,iron,mn/fo lic acid/chol (AEMW-OAZC-YITJS, PABA, ORAL) Take by mouth. Active oxyCODONE [...] Td,Tdap Booster 10/26/2023 10/25/2013 INFLUENZA VACCINE (#1) 2025 , 04/05/2020, 04/14/2019, Additional history exists COVID-19 VACCINE (2 - season) 2025 08/13/2021 PNEUMOCOCCAL VACCINES (50+ years) Completed 02/21/2020, [...] this topic Medical Devices Implanted Type Area Lead Massage Therapist Device Identifier Shelf Expiration Date Model / Serial / Lot Clip Clip Right: Breast Radius Plate 3 Hole Bone Distal Volar Radial Geminus Titanium Rt Narrow - [id number] Implanted:Qty: 1 on 03/22/2022 by Chloe Rene MD at [facility] Right: Wrist [employer] [facility] [id number] / / Peg Bone 18x2.3mm Threaded Geminus Locking - [id number] Implanted:Qty: 5 on 03/22/2022 by Chloe Rene MD at [facility] Right: Wrist [employer] [facility] [id number] -[id number] / / Peg Bone 2.3mmx20 Threaded Geminus Locking - [id number] Implanted:Qty: 1 on 03/22/2022 by Chloe Rene MD at [facility] Right: Wrist [employer] [id number] -[id number] / / Screw Bone 10x3.5mm L Locking Cortical Geminus Titanium Fossa Specific Plating System - [id number] Implanted:Qty: 1 on 03/22/2022 by Chloe Rene MD at [facility] Right: Wrist [employer] [id number] -[id number] / / Screw Bone 12x3.5mm L Locking Cortical Geminus Titanium Fossa Specific Plating System - [id number] Implanted:Qty: 1 on 03/22/2022 by Chloe Rene MD at [facility] Right: Wrist [employer] [id number] -TS / / Screw Bone 12x3.5mm L Polyaxial Non Locking Compression Cortical Geminus Titanium Fossa Specific Plating - [id number] Implanted:Qty: 1 on 03/22/2022 by Chloe Rene MD at [facility] Right: Wrist [employer] [id number] -TS / / Insurance MEDICARE PART A & B GENERIC MEDICARE SUPPLEMENT FOR LIFE MEDICARE SUPPLEMENT MEDICARE PART A & B GENERIC MEDICARE SUPPLEMENT FOR LIFE MEDICARE SUPPLEMENT MEDICARE PART A & B GENERIC MEDICARE [place] [address] [place] [address] MEDICARE SUPPLEMENT MEDICARE PART A & B GENERIC MEDICARE [place] [address] [place] [address] MEDICARE SUPPLEMENT [facility] Address: [address] [place] [address] MEDICARE PART A & B GENERIC MEDICARE SUPPLEMENT Member Subscriber Plan / Payer (Ef fective 2005-Present) Name:Mercedez Ybarra Relation to Subscriber:Self Name:Mercedez Ybarra Payer ID:Not on file Group ID:Not on file Type:[employer] Address: [address] MEDICARE SUPPLEMENT [facility] Address: [facility] [address] [place] [phone] MEDICARE PART A & B GENERIC MEDICARE [place] [address] [address] [place] [address] MEDICARE SUPPLEMENT [facility] Address: [facility] [address] [place] [address] MEDICARE PART A & B GENERIC MEDICARE SUPPLEMENT FOR LIFE MEDICARE SUPPLEMENT MEDICARE PART A & B GENERIC MEDICARE SUPPLEMENT Member Subscriber Plan / Payer (Ef fective 2005-Present) Name:Mercedez Ybarra Relation to Subscriber:Self Name:Mercedez Ybarra Payer ID:Not on file Group ID:Not on file Type:Indemnity Address: [address] [place] [id number] FOR LIFE MEDICARE SUPPLEMENT MEDICARE PART A & B GENERIC MEDICARE SUPPLEMENT Member Subscriber Plan / Payer (Ef fective 2005-Present) Name:Mercedez Ybarra Relation to Subscriber:Self Name:Mercedez Ybarra Payer ID:Not on file Group ID:Not on file Type:Indemnity Address: [address] MEDICARE SUPPLEMENT Advance Directives For more information, please contact: [phone] (9AM - 5PM [place], Friday-Friday) Documents on File Type Date Recorded Patient Rn Admit Expl anation Healthcare Proxy 03/25/2022 2:49 PM Care Teams Hvac R Tech Relationship Specialty Start Date End Date Yogi Sawyer MD PCP - General Internal Medicine 02/22/22 Additional Source Comments The information contained in this document represents components of the legal health record. It is not the complete legal health record.[facility]
== END 2025-04-06 11:25 | disposition home or self-care (01) ==
LOC: HO.US 11:24
PROVIDERS: PCP Family Medicine; Visit Provider Physician Assistant
DX: Z96.652 Presence of left artificial knee joint (principal); M79.661 Pain in right lower leg
CPT/HCPCS: 93971

== ENCOUNTER → 2025-04-06 11:26 | Outpatient (BNV) | payer MEDICARE, OTHER, SELFPAY | PROVIDERS: PCP Family Medicine; Visit Provider Radiology Diagnostic Radiology | DX: M79.605 Pain in left leg (principal); Z96.652 Presence of left artificial knee joint | CPT/HCPCS: 93971 ==

== ENCOUNTER 2025-04-28 12:17 | Outpatient (AMB) | payer MEDICARE, OTHER, SELFPAY ==
--- OUTSIDE RECORDS SUMMARY | 2025-02-28 06:30 | XMS_ITS ---
Author Organization [facility] Address [address] [place] [address] Care Team Providers Care Merchandise Support Associate Name Role Phone Evi HOLBROOK, Nicol Primary Care Provider Unavailab Joanna Cagle Unavailable [phone] Encounters Encounter Location Date Provider Diagnosis [address] [address] 02/28/2025 Joanna Pedro Plan Of Treatment No Information Progress Notes * Gayle YBARRAOB:[birth year] (74 yo F)Acc No.[id number]:02/28/2025 Progress Note Patient: Mercedez LEAHY Provider: Huang Pedro DPM :1950 A ge:74 Y S ex:Female Date:02/28/2025 Address:[address] [place], [place] [id number] Pcp:Nicol Steve MD Subjective: * Chief Complaints: [...] Pedro DPM Date: 0 02/28/2025 Generated for Katrinai ng/Christopher/eTransmitting on: 1 01:52 PM EDT
--- NOTE | 2025-04-28 12:32 | MHC.OFFVIS ---
Vital Signs 04/28/25 12:37 Height 5 ft 6 in Weight 235 lb BMI 37.9 Intake Visit Reasons: 6WKPO: LT TKA w/NE 03/15/25 Intake Note: Mercedez is a 74 year old female who presents today for a post operative appointment about 6 weeks s/p Left TKA 03/15/2025. Patient indicated concern for calf pain thus a US was ordered to Rule out DVT - US was negative. Patient reports that her left knee continues to feel sore, but she is able to ambulate well with her walker. She compains of itching at the incision site and is asking if she can put lotions on. Allergies bacitracin (From Neosporin (wvh-jqx-yumww)) Allergy (Intermediate, Verified 04/28/25 12:38) Blister house dust Allergy (Intermediate, Verified 04/28/25 12:38) Itchy Eyes latex Allergy (Intermediate, Verified 04/28/25 12:38) Redness of Skin neomycin (From Neosporin (vja-vsy-uvimd)) Allergy (Intermediate, Verified 04/28/25 12:38) Blister polymyxin B (From Neosporin (hdx-xnw-gvcuy)) Allergy (Intermediate, Verified 04/28/25 12:38) Blister HPI HPI 6WKPO: LT TKA w/NE 03/15/25: Details: Mercedez is 6 weeks status post left knee replacement. She reports doing well. She states she is having minimal pain in not taking narcotics any longer. She is walking comfortably with a walker and wants to transition to a cane. [facility] Medical History GERD (gastroesophageal reflux disease) Fatty liver DARLIN (obstructive sleep apnea) Urinary incontinence Osteopenia Osteoarthritis Obesity Lumbar radiculopathy Depression Hyperlipidemia Hypertension Surgical History Hx of left breast biopsy Hx of tubal ligation History of open reduction and internal fixation (ORIF) procedure History of esophagogastroduodenoscopy (EGD) H/O colonoscopy Hx of cholecystectomy Social History Household Members: Children Housing: House Are you a primary manager wound care to a significant other at home: No Do you presently have visiting nurse or other home services: No Patient Tobacco Use Status: Former Tobacco user Tobacco use type: Cigarette Years Smoked: 19 service: No Current occupational status: retired Physical Exam Exam Exam: Pleasant woman in no acute distress Left knee incision clean dry and intact Walking comfortably with a walker 0-120 degrees of motion Stable arc of motion Vital Signs: BMI result Body Mass Index 37.9 Assessment & Plan Assessment & Plan (1) Status post total knee replacement, left: Code(s): Z96.652 - Presence of left artificial knee joint Category: Surgical Plan: Status post left knee replacement. Doing very well. May discontinue chemo prophylaxis. Follow up 6 weeks. Continue outpatient PT. (2) Osteoarthritis of right knee: Code(s): M17.11 - Unilateral primary osteoarthritis, right knee Category: Medical Plan: She would like to have her left knee replaced. This is reasonable given the bilaterality of her disease and how well she has done after her left knee replacement. Orders: Orders PT Evaluation and Treatment 04/28/25 M17.11 - Unilateral primary osteoarthritis, right knee, Z96.652 - Presence of left artificial knee joint Coding Level of Care Code Global (42695) Diagnoses Status post total knee replacement, left Z96.652 Osteoarthritis of right knee M17.11
[2025-04-28 12:37] VITALS: BMI 37.9
--- OUTSIDE RECORDS SUMMARY | 2025-04-28 13:53 | XMS_ITS | Encounter Summary ---
Author Organization [facility] Address [address] [place] [address] Phone Care Team Providers Care Customer Service Clerk Name Role Phone Yogi Sawyer MD Primary Care Provider [phone] Encounter Details Date Type Department Care Team (Late st Contact Info) Description 03/05/2022 Ancillary Orders [address] [address] Nicol Valenzuela PA-C [address] [place] [address] Orthopedics & Sports Medicine, [place] [address] [email or web address] Injury of left wrist, subsequent encounter Social [...] encounter documented in this encounter Care Teams Customer Service Clerk Relationship Specialty Start Date End Date Yogi Sawyer MD PCP - General Internal Medicine 02/22/22 documented as of this encounter Additional Source Comments The information contained in this document represents components of the legal health record. It is not the complete legal health record.[facility]
--- OUTSIDE RECORDS SUMMARY | 2025-04-28 13:53 | XMS_ITS | Encounter Summary ---
Author Organization [facility] Address [address] [address] Phone Care Team Providers Care Driver Lifter Of Sanitation Truck Name Role Phone Yogi Sawyer MD Primary Care Provider [phone] Encounter Details Date Type Department Care Team (Late st Contact Info) Description 03/22/2022 Procedure Pass OR Admitting Dept - Virtual Department [address] [place] [address] Social History Tobacco Use Types Packs/Day Years [...] on filedocumented in this encounter Care Teams Driver Lifter Of Sanitation Truck Relationship Specialty Start Date End Date Yogi Sawyer MD PCP - General Internal Medicine 02/22/22 documented as of this encounter Additional Source Comments The information contained in this document represents components of the legal health record. It is not the complete legal health record.[facility]
--- OUTSIDE RECORDS SUMMARY | 2025-04-28 13:53 | XMS_ITS | Encounter Summary ---
Author Organization [facility] Address [address] [place] [address] Phone Care Team Providers Care Commercial Lending Assistant Name Role Phone Yogi Sawyer MD Primary Care Provider [phone] Encounter Details Date Type Department Care Team (Late st Contact Info) Description 03/05/2022 Ancillary Orders [facility] Orthopedics & Sports Medicine [address] [place] [address] Nicol Valenzuela PA-C [address] [place] [address] Orthopedics & Sports Medicine, [facility] [place], [place] [id number] Social History Tobacco Use Types Packs/Day Years [...] on filedocumented in this encounter Care Teams Commercial Lending Assistant Relationship Specialty Start Date End Date Yogi Sawyer MD PCP - General Internal Medicine 02/22/22 documented as of this encounter Additional Source Comments The information contained in this document represents components of the legal health record. It is not the complete legal health record.[facility]
--- OUTSIDE RECORDS SUMMARY | 2025-04-28 13:53 | XMS_ITS | Clinical Summary ---
Author Organization [facility] Address [address] [place] [id number] Phone Care Team Providers Care Motor Tester Name Role Phone Yogi Sawyer MD Primary Care Provider [phone] Allergies Active Allergy Reactions Criticality Noted Date Comments Adhesive Unknown 01/15/2021 Latex Unknown 01/15/2021 Fuploida-Kyhjfcngtu-Wcrxurjud Unknown 2020 Medications acetaminophen (TYLENOL) 500 MG [...] by mouth daily. Active mv,carli,iron,mn/fo lic acid/chol (EFOI-GYAZ-FHVPT, PABA, ORAL) Take by mouth. Active oxyCODONE [...] this topic Medical Devices Implanted Type Area Assistant Merchandise Manager Device Identifier Shelf Expiration Date Model / Serial / Lot Clip Clip Right: Breast Radius Plate 3 Hole Bone Distal Volar Radial Geminus Titanium Rt Narrow - [id number] Implanted:Qty: 1 on 03/22/2022 by Chloe Rene MD at [facility] Right: Wrist [employer] [facility] [id number] / / Peg Bone 18x2.3mm Threaded Geminus Locking - [id number] Implanted:Qty: 5 on 03/22/2022 by Chloe Rene MD at [facility] Right: Wrist [employer] [facility] [id number] -[id number] / / Peg Bone 2.3mmx20 Threaded Geminus Locking - [id number] Implanted:Qty: 1 on 03/22/2022 by Chloe Rene MD at [facility] Right: Wrist [employer] [id number] -[id number] / / Screw Bone 10x3.5mm L Locking Cortical Geminus Titanium Fossa Specific Plating System - [id number] Implanted:Qty: 1 on 03/22/2022 by Chloe Rene MD at [facility] Right: Wrist [employer] [id number] -[id number] / / Screw Bone 12x3.5mm L Locking Cortical Geminus Titanium Fossa Specific Plating System - [id number] Implanted:Qty: 1 on 03/22/2022 by Chloe Rene MD at [facility] Right: Wrist [employer] [id number] -[id number] / / Screw Bone 12x3.5mm L Polyaxial Non Locking Compression Cortical Geminus Titanium Fossa Specific Plating - [id number] Implanted:Qty: 1 on 03/22/2022 by Chloe Rene MD at [facility] Right: Wrist [employer] [id number] -[id number] / / Insurance MEDICARE PART A & B GENERIC MEDICARE SUPPLEMENT FOR LIFE MEDICARE SUPPLEMENT MEDICARE PART A & B GENERIC MEDICARE SUPPLEMENT FOR LIFE MEDICARE SUPPLEMENT MEDICARE PART A & B GENERIC MEDICARE [place] [address] [place] [address] MEDICARE SUPPLEMENT MEDICARE PART A & B GENERIC MEDICARE [place] [address] [place] [address] MEDICARE SUPPLEMENT MEDICARE PART A & B GENERIC MEDICARE SUPPLEMENT Member Subscriber Plan / Payer (Ef fective 2005-Present) Name:Mercedez Ybarra Relation to Subscriber:Self Name:Mercedez Ybarra Payer ID:Not on file Group ID:Not on file Type:[employer] Address: [address] MEDICARE SUPPLEMENT MEDICARE PART A & B GENERIC MEDICARE [place] [place] [address] MEDICARE SUPPLEMENT MEDICARE PART A & B GENERIC MEDICARE SUPPLEMENT FOR LIFE MEDICARE SUPPLEMENT MEDICARE PART A & B GENERIC MEDICARE SUPPLEMENT Member Subscriber Plan / Payer (Ef fective 2005-Present) Name:Mercedez Ybarra Relation to Subscriber:Self Name:Mercedez Ybarra Payer ID:Not on file Group ID:Not on file Type:Indemnity Address: [address] [place] [id number] FOR LIFE MEDICARE SUPPLEMENT MEDICARE PART A & B GENERIC MEDICARE SUPPLEMENT Member Subscriber Plan / Payer (Ef fective 2005-Present) Name:Mercedez Ybarra Relation to Subscriber:Self Name:Mercedez Ybarra Payer ID:Not on file Group ID:Not on file Type:Indemnity Address: [address] MEDICARE SUPPLEMENT Advance Directives For more information, please contact: [phone] (9AM - 5PM [facility], Friday-Friday) Documents on File Type Date Recorded Patient Woolen Tester Expl anation Healthcare Proxy 03/25/2022 2:49 PM Care Teams Motor Tester Relationship Specialty Start Date End Date Yogi Sawyer MD PCP - General Internal Medicine 02/22/22 Additional Source Comments The information contained in this document represents components of the legal health record. It is not the complete legal health record.[facility]
--- OUTSIDE RECORDS SUMMARY | 2025-04-28 13:53 | XMS_ITS | Patient Health Record ---
Author Organization [facility] Address [address] [place] [address] Care Team Providers Care Processing Supervisor Name Role Phone None, None Primary Care Provider Unavailabl e Reason For Referral No Information Plan Of Treatment No Information Insurance Providers Payer Name Payer Address Payer Phone Subscriber Number Group Number Insured Name Patient Relationship to Insured Coverage Start Date Coverage End Date ZZ DO NOT USE MEDICARE NON PAR [id number] Mercedez Hirsch Self - patient is the insured [address] [facility] [address] [place], [place] [id number] Mercedez Hirsch Self - patient is the insured 0
--- OUTSIDE RECORDS SUMMARY | 2025-04-28 13:53 | XMS_ITS | Patient Health Record ---
Author Organization [facility] Tena tamiko Adalberto Address [address] [facility] [place] [address] Care Team Providers Care Solution Engineer Name Role Phone Nicol Steve MD Primary Care Provider Joanna Brown Unavailable [phone] Allergies Allergen (clinical drug ingredient) Drug/Non Drug [...] Problem Acquired hammer toe of right foot (6912282032131804) Hammer toe of right foot (M20.41) Active confirmed Problem Acquired hammer toe of left foot (6856486647317087) Hammer toe of left foot (M20.42) Active confirmed Problem Bilateral atherosclerosis of arteries of lower limbs (disorder) (92728730179374944 ) Atherosclerosis of artery of both lower extremities (I70.203) Active confirmed Vital Signs Blood pressure diastolic 84 mm Hg 12/27/2024 Height 5ft 6in in 12/27/2024 Blood pressure systolic 130 mm Hg 12/27/2024 Weight 298 lbs 12/27/2024 BMI 48.09 kg/m2 12/27/2024 Encounters Encounter Location Date Provider Diagnosis [address] [address] 04/29/2024 Joanna Perica Pain in toe of left foot M79.675 ; Atherosclerosis of artery of both lower extremities I70.203 ; Pain in toe of right foot M79.674 and Tinea unguium B35.[address] [facility] [address] 08/05/2024 Joanna Perica Atherosclerosis of artery of both lower extremities I70.203 ; Tinea unguium B35.1 ; Pain in toe of left foot M79.675 and Pain in toe of right foot M79.[address] [address] 10/18/2024 Joanna Perica Atherosclerosis of artery of both lower extremities I70.203 ; Tinea unguium B35.1 ; Pain in toe of left foot M79.675 and Pain in toe of right foot M79.[address] [address] 12/27/2024 Joanna Perica Atherosclerosis of artery of both lower extremities I70.203 ; Tinea unguium B35.1 ; Pain in toe of left foot M79.675 and Pain in toe of right foot M79.[address] [address] 02/24/2025 Joanna Pedro Assessments Encounter Date Diagnosis [...] Inc [address] [place] [address] [id number] Mercedez Hirsch Self - patient is the insured [employer] [address] [place] [address] [id number] Mercedez Hirsch Self - patient is the insured for Life [address] [place] [id number] Mike Hirsch Spouse - patient is the spouse of the insured Medical (General) History Medical History History ICD Code osteoarthritis Back pain/Sciatica Cataracts Depression Diverticulosis Gall bladder problems Headaches High blood pressure Sciatica Measles Mumps Chicken pox Surgical History Surgery Date(Month/Year) cholecystectomy 1992 Breast Surgery, cyst
== END 2025-04-28 13:14 | disposition home or self-care (01) ==
LOC: HO.HOS 12:17
PROVIDERS: PCP Family Medicine; Visit Provider Orthopaedic Surgery
DX: Z96.652 Presence of left artificial knee joint (principal); M17.11 Unilateral primary osteoarthritis, right knee
CPT/HCPCS: 99024

== ENCOUNTER → 2025-04-28 12:17 | Outpatient (BNVA) | payer MEDICARE, OTHER, SELFPAY | PROVIDERS: PCP Family Medicine; Visit Provider Orthopaedic Surgery | DX: Z47.1 Aftercare following joint replacement surgery (principal); Z96.652 Presence of left artificial knee joint | CPT/HCPCS: 99212 ==

== ENCOUNTER 2025-06-16 14:46 | Outpatient (AMB) | payer MEDICARE, OTHER, SELFPAY ==
--- OUTSIDE RECORDS SUMMARY | 2024-03-18 06:15 | XMS_ITS ---
Author Organization [facility] Address [address] [place] [address] Care Team Providers Care Finish Production Manager Name Role Phone Evi HOLBROOK, Nicol Primary Care Provider UnavailJoanna Leavitt Unavailable [phone] Encounters Encounter Location Date Provider Diagnosis [address] [address] 03/18/2024 Joanna Pedro Plan Of Treatment Next Appt Details Provider Name:Joanna fernandez, 06/27/2025 03:15:00 PM, [address] [place] [address], [place], [address], Progress Notes * AMADA CarolineRamsesOB:[birth year] (74 yo F)Acc No.[id number]:03/18/2024 Progress Note Patient: Mercedez LEAHY Provider: Huang Pedro DPM :1950 A ge:73 Y S ex:Female Date:03/18/2024 Address:[address] [place], [place] [id number] Pcp:Nicol Steve MD Subjective: * Chief Complaints: [...] DPM Date: 0 03/18/2024 Generated for Lilliana trevizo/Christopher/Esperanza on: 1 08/16/2024 08:15 PM EST
--- OUTSIDE RECORDS SUMMARY | 2025-02-28 05:30 | XMS_ITS ---
Author Organization [facility] tamiko [place] Address [address] [place] [address] Care Team Providers Care Tennis Desk Team Member Name Role Phone Evi HOLBROOK, Nicol Primary Care Provider UnavailJoanna Leavitt Unavailable [phone] Encounters Encounter Location Date Provider Diagnosis [address] [address] 02/28/2025 Joanna Pedro Plan Of Treatment Next Appt Details Provider Name:Joanna fernandez, 06/27/2025 03:15:00 PM, [address] [place] [address], [place], [address], Progress Notes * AMADA CarolineRamsesOB:[birth year] (74 yo F)Acc No.[id number]:02/28/2025 Progress Note Patient: Mercedez LEAHY Provider: Huang Pedro DPM :1950 A ge:74 Y S ex:Female Date:02/28/2025 Address:[address] [place], [place] [id number] Pcp:Nicol Steve MD Subjective: * Chief Complaints: [...] DPM Date: 0 02/28/2025 Generated for Lilliana trevizo/Christopher/Esperanza on: 1 08/16/2024 08:15 PM EST
--- OUTSIDE RECORDS SUMMARY | 2025-06-11 23:59 | XMS_ITS | Continuity of Care Document ---
Author Organization [facility] Address [address] [place] [address]- Care Team Providers Care Filler Shredder Helper Name Role Phone Evi HOLBROOK, Nicol Melgar Primary Care Physician [phone] Encounter [facility] NBR [id number] Date(s): 05/12/25 - 06/11/25 [facility] [address] [place] [address]- Encounter Type: Triage Allergies, Adverse Reactions, Alerts Substance Criticality Severity Reaction Reaction Severity Status Neosporin Active Dust Active Latex Active Immunizations Given and Recorded Vaccine Date Status Refusal Reason influenza virus vaccine, inactivated 05/01/25 Nael rded influenza virus vaccine, inactivated 04/28/24 Nael rded influenza virus vaccine, inactivated 04/27/23 Nael rded influenza virus vaccine, inactivated 06/02/22 Nael rded influenza virus vaccine, inactivated 04/14/21 Nael rded SARS-CoV-2(COVID-19)mRNA-LNP vac([id number]) 06/02/24 Recorded SARS-CoV-2(COVID-19)mRNA-LNP vac([id number]) 10/23/23 Recorded SARS-CoV-2(COVID-19)mRNA-LNP vac([id number]) 04/27/23 Recorded tetanus/diphtheria/pertussis, acel(Tdap) 04/28/24 Recorded tetanus/diphtheria/pertussis, acel(Tdap) 10/25/13 Recorded pneumococcal 20-valent conjugate vaccine 02/03/24 Recorded RSV vaccine preF3, recombinant 10/23/23 Recorded zoster vaccine, inactivated 11/18/22 Recorded zoster vaccine, inactivated 08/26/22 Recorded [id number] bivalent booster vax 05/08/22 Recorded SARS-CoV-2 (COVID-19) mRNA-1273 vaccine 08/13/21 R ecorded pneumococcal 23-valent vaccine 10/25/13 Recorded Medications albuterol CFC free 90 mcg/inh inhalation aerosol 180 mcg, 2, inhalation, Inhalation, Every 6 hours, PRN, # 1 each, Refills 0, Tot. Refills 0, Maintenance, 11/03/24 3:19:00 PM EDT, Aerosol, Route to Pharmacy Electronically, [id number], [facility]/pharmacy #[id number], 168, cm, 11/03/24 15:04:00 EDT, Height, 125, kg, 06/04/24 13:40:00 EST, Dry Weight Start Date: 11/03/24 Stop Date: 12/03/24 Status: Ordered Medication Dispense Status: Completed Quantity: 1.0 Unit: each Total Allowed Fills: 1 Fills Dispensed: 0 amLODIPine 2.5 mg oral tablet 2.5 mg, 1, tablet, By Mouth, Daily, # 90 tablet, Refills 3, Tot. Refills 3, Maintenance, 06/10/25 2:50:00 PM EST, Route to Pharmacy Electronically, [facility]/pharmacy #[id number], Partial fill upon patient request if the prescription is for a schedule II opioid drug., 168, cm, 06/10/25 14:37:00 EST, Height, 111.5, kg, 01/24/25 14:43:00 EDT, Dry Weight Start Date: 06/10/25 Stop Date: 06/05/26 Status: Ordered Medication Dispense Status: Completed Quantity: 90.0 Unit: tablet Total Allowed Fills: 4 Fills Dispensed: 0 aspirin 81 mg oral delayed release tablet 81 mg, 1, tablet, By Mouth, Daily, # 30 tablet, Refills 0, Maintenance, 02/01/21 2:21:00 PM EDT, Partial fill upon patient request if the prescription is for a schedule II opioid drug. Start Date: 02/01/21 Status: Ordered Medication Dispense Status: Completed Quantity: 30.0 Unit: tablet Total Allowed Fills: 1 Fills Dispensed: 0 clobetasol 0.05% topical ointment See Instructions, APPLY TO AFFECTED AREA TWICE A DAY, # 60 Gm, 5 Refills, Maintenance, 01/17/25 6:58:00 AM EDT, [id number], 30, APPLY TO AFFECTED AREA TWICE A DAY, 168, cm, 01/03/25 14:21:00 EDT,Height, 125, kg, 06/04/24 13:40:00 EST, Dry Weight Start Date: 01/17/25 Status: Ordered Medication Dispense Status: Completed Quantity: 60.0 Unit: g Total Allowed Fills: 1 Fills Dispensed: 0 Compression Stockings See Instructions, # 2 each, Maintenance, surgical, knee length 20-30 mm Hg, 04/03/23 3:54:00 PM EDT, Supply Start Date: 04/03/23 Status: Ordered Medication Dispense Status: Completed Quantity: 2.0 Unit: each Total Allowed Fills: 1 Fills Dispensed: 0 Flonase Daily, 0 Refills, Maintenance, 07/11/22 12:43:00 PM EST, Partial fill upon patient request if the prescription is for a schedule II opioid drug. Start Date: 07/11/22 Status: Ordered Medication Dispense Status: Completed Total Allowed Fills: 1 Fills Dispensed: 0 gabapentin 100 mg oral capsule 300 mg, 3, capsule, By Mouth, 3 times a day, X30 DAYS., # 270 capsule, Refills 5, Tot. Refills 5, Maintenance, 05/15/24 11:33:00 AM EDT, Route to Pharmacy Electronically, [facility]/pharmacy #[id number], 168, cm,04/29/24 9:49:00 EDT, Height Start Date: 05/15/24 Stop Date: 11/11/24 Status: Ordered Medication Dispense Status: Completed Quantity: 270.0 Unit: capsule Total Allowed Fills: 6 Fills Dispensed: 0 gabapentin 300 mg oral capsule 600 mg, 2, capsule, By Mouth, 3 times a day, # 180 capsule, Refills 1, Tot. Refills 1, Maintenance,05/12/25 3:14:00 PM EDT, Route to Pharmacy Electronically, [facility]/pharmacy #[id number], Partial fill upon patient request if the prescription is for a schedule II opioid drug., 168, cm, 05/05/25 10:16:00 EDT, Height, 111.5, kg, 01/24/25 14:43:00 EDT, Dry Weight Start Date: 05/12/25 Stop Date: 07/11/25 Status: Ordered Medication Dispense Status: Completed Quantity: 180.0 Unit: capsule Total Allowed Fills: 2 Fills Dispensed: 0 hydrochlorothiazide-triamterene 25 mg-37.5 mg oral capsule 1 [...] Dry Weight Start Date: 09/03/24 Status: Ordered Medication Dispense Status: Completed Quantity: 90.0 Unit: capsule Total Allowed Fills: 4 Fills Dispensed: 0 ibuprofen 800 mg oral tablet 1, tablet, By Mouth, 3 times a day, # 90 tablet, Refills 0, Maintenance, 02/02/25 10:49:00 AM EDT, Route to Pharmacy Electronically, [id number], 168, cm, 01/24/25 14:43:00 EDT, Height, 111.5, kg, 01/24/25 14:43:00 EDT, Dry Weight Start Date: 02/02/25 Status: Ordered Medication Dispense Status: Completed Quantity: 90.0 Unit: tablet Total Allowed Fills: 1 Fills Dispensed: 0 Insulin Syringe, BD Ultra-Fine 1 cc 30 G x 12.7 mm (1/2in) See Instructions, # 10 each, Refills 1, Tot. Refills 1, Maintenance, use with injectable medicationvial once weekly dx: obesity, 09/07/24 9:18:00 AM EST, Supply, 168, cm, 09/03/24 10:07:00 EST, Height, 125, kg, 06/04/24 13:40:00 EST, Dry Weight Start Date: 09/07/24 Status: Ordered Medication Dispense Status: Completed Quantity: 10.0 Unit: each Total Allowed Fills: 2 Fills Dispensed: 0 omeprazole 40 mg oral enteric coated capsule [...] Date: 10/10/24 Stop Date: 10/05/25 Status: Ordered Medication Dispense Status: Completed Quantity: 90.0 Unit: capsule Total Allowed Fills: 4 Fills Dispensed: 0 pravastatin 40 mg oral tablet 1 tablet = 40 mg, By Mouth, Daily, # 90 tablet, 3 Refills, Maintenance, 09/03/24 10:28:00 AM EST, Tablet, [facility], Partial fill upon patient request if the prescription is for a schedule II opioid drug., 168, cm, 09/03/24 10:07:00 EST, Height, 125, kg, 06/04/24 13:40:00 EST, Dry Weight Start Date: 09/03/24 Status: Ordered Medication Dispense Status: Completed Quantity: 90.0 Unit: tablet Total Allowed Fills: 4 Fills Dispensed: 0 sertraline 50 mg oral tablet 1 tablet, By Mouth, Daily, # 90 tablet, 3 Refills, Maintenance, 05/05/25 10:33:00 AM EDT, [facility], 168, cm, 05/05/25 10:16:00 EDT, Height, 111.5, kg, 01/24/25 14:43:00 EDT, Dry Weight Start Date: 05/05/25 Status: Ordered Medication Dispense Status: Completed Quantity: 90.0 Unit: tablet Total Allowed Fills: 4 Fills Dispensed: 0 Vitamin D 83785 iu oral capsule 50,000 International_Units, By Mouth, Daily, Refills 0, Maintenance, 02/01/21 2:21:00 PM EDT, Partialfill upon patient request if the prescription is for a schedule II opioid drug. Start Date: 02/01/21 Status: Ordered Medication Dispense Status: Completed Total Allowed Fills: 1 Fills Dispensed: 0 Zepbound 10 mg/0.5 mL subcutaneous solution = 10 mg, Subcutaneous Injection, Every week, rotate injection sites BMI >30, HTN, HLD, please supply vials, not pens, # 2 mL, 2 Refills, Maintenance, 04/14/25 4:17:00 PM EDT, Solution, [facility], Partial fill upon patient request if the prescription is for a schedule II opioid drug., 168, cm, 01/24/25 14:43:00 EDT, Height, 111.5, kg, 01/24/25 14:43:00 EDT, Dry Weight Start Date: 04/14/25 Stop Date: 07/13/25 Status: Ordered Medication Dispense Status: Completed Quantity: 2.0 Unit: mL Total Allowed Fills: 3 Fills Dispensed: 0 zolpidem 10 mg oral tablet 1 tablet = 10 mg, By Mouth, Daily at bedtime, PRN as needed for insomnia, masspat checked, # 30 tablet, 0 Refills, Maintenance, 04/14/25 8:36:00 AM EDT, Tablet, [facility], Partial fill upon patient request if the prescription is for a schedule II opioid drug., 168, cm, 01/24/25 14:43:00 EDT, Height, 111.5, kg, 01/24/25 14:43:00 EDT, Dry Weight Start Date: 04/14/25 Stop Date: 05/14/25 Status: Ordered Medication Dispense Status: Completed Quantity: 30.0 Unit: tablet Total Allowed Fills: 1 Fills Dispensed: 0 Problem List Condition Confirmation Course Effective Dates [...] than 30 days ago entered on: 01/24/25 Sexual Orientation Self described orien tation: ; Straight or heterosexual Sex Sex Representation Female (finding) Patient Care team information Care Team Personnel Name: Nicol Steve MD Position: S Physician - Primary Care Member Role: PCP Address: [address] [place], [place] [address], [place] [address]- Telecom: Care Team Related Persons Name: PHILIP GARCÍA Insurance Providers Guarantor name: MAHESH YBARRA Health Plan Information #: 1 Payer: MEDICARE B Payer Identifier: NA Member Number: [id number] Group Number: NA Subscriber Identifier: NA Relationship to Subscriber: self Coverage Type: NA Coverage Verification Date: NA Telecom: NA Address: NA Health Plan Information #: 2 Payer: FOR LIFE Payer Identifier: NA Member Number: [id number] Group Number: [id number] Subscriber Identifier: NA Relationship to Subscriber: self Coverage Type: For Life--Medicare Supplement Coverage Verification Date: NA Telecom: NA Address: NA Health Plan Information #: 3 Payer: [id number] Payer Identifier: NA Member Number: [id number] Group Number: NA Subscriber Identifier: NA Relationship to Subscriber: Spouse Coverage Type: NA Coverage Verification Date: NA Telecom: NA Address:
--- NOTE | 2025-06-16 14:48 | MHC.OFFVIS ---
Intake Visit Reasons: P/O LT TKA w/NE 03/15/25 Intake Note: Mercedez is a 74 year old female who presents today for a post operative appointment about 3 months s/p Left TKA 03/15/2025. At her last visit she mentioned having the Right knee replaced. Patient is doing well and she is working physical therapy. She was wondering about scheduling her surgery for Janurary for her right knee. Allergies bacitracin (From Neosporin (mef-cji-erlbw)) Allergy (Intermediate, Verified 06/16/25 14:52) Blister house dust Allergy (Intermediate, Verified 06/16/25 14:52) Itchy Eyes latex Allergy (Intermediate, Verified 06/16/25 14:52) Redness of Skin neomycin (From Neosporin (fat-tnx-cadeo)) Allergy (Intermediate, Verified 06/16/25 14:52) Blister polymyxin B (From Neosporin (jbh-wno-axlsg)) Allergy (Intermediate, Verified 06/16/25 14:52) Blister HPI HPI P/O LT TKA w/NE 03/15/25: Details: Ms. Mauro is a 74-year-old female who presents to the office today for routine follow-up status post left total knee arthroplasty performed on 03/15/[address] Arnold. Patient is overall doing very well. She denies any pain or difficulty with range of motion. She has completed all physical therapy sessions. She continues to use a walker to assist with ambulation due to right knee osteoarthritis and need for right total knee arthroplasty. She would like to move forward with scheduling right total knee arthroplasty at this time. [facility] Medical History GERD (gastroesophageal reflux disease) Fatty liver DARLIN (obstructive sleep apnea) Urinary incontinence Osteopenia Osteoarthritis Obesity Lumbar radiculopathy Depression Hyperlipidemia Hypertension Surgical History Hx of left breast biopsy Hx of tubal ligation History of open reduction and internal fixation (ORIF) procedure History of esophagogastroduodenoscopy (EGD) H/O colonoscopy Hx of cholecystectomy Social History Household Members: Children Housing: House Are you a primary care asst to a significant other at home: No Do you presently have visiting nurse or other home services: No Patient Tobacco Use Status: Former Tobacco user Tobacco use type: Cigarette Years Smoked: 19 service: No Current occupational status: retired Review of Systems Const All systems reviewed & are unremarkable except as noted in HPI and below Physical Exam Extrem Other: Left knee incision site is well approximated and completely healed. There is no signs of infection. Range of motion 0-120. NVI. Assessment & Plan Assessment & Plan (1) Status post total knee replacement, left: Code(s): Z96.652 - Presence of left artificial knee joint Category: Surgical (2) Osteoarthritis of right knee: Code(s): M17.11 - Unilateral primary osteoarthritis, right knee Category: Medical Plan Ms. Mauro is a 74-year-old female who presents to the office today for routine follow-up status post left total knee arthroplasty performed on 03/15/[address] Arnold. Patient is overall doing very well. She denies any pain or difficulty with range of motion. She has completed all physical therapy sessions. She continues to use a walker to assist with ambulation due to right knee osteoarthritis and need for right total knee arthroplasty. She would like to move forward with scheduling right total knee arthroplasty at this time. While in the office today, the patient is not experiencing any pain or concerns regarding the left total knee arthroplasty. Dr. Arnold was available but did not see the patient with me today, however, we discussed this patient's case prior to today's visit. We will move forward with booking the right total knee arthroplasty. A message has been sent to our surgical schedulers/nurse navigator. She will follow up for preoperative planning right total knee arthroplasty. Coding Level of Care Code Est Pt Level 4 (02965) Global (17397) Diagnoses Status post total knee replacement, left Z96.652 Osteoarthritis of right knee M17.11
--- OUTSIDE RECORDS SUMMARY | 2025-06-16 20:15 | XMS_ITS | Patient Health Record ---
Author Organization [facility] Tena tamiko Adalberto Address [address] [facility] [facility] [place] [address] Care Team Providers Care Cleaning Professional Name Role Phone Nicol Steve MD Primary Care Provider Joanna Brown Unavailable [phone] Allergies Allergen (clinical drug ingredient) Drug/Non Drug [...] Problem Acquired hammer toe of right foot (0592367808135200) Hammer toe of right foot (M20.41) Active confirmed Problem Acquired hammer toe of left foot (4452144036974044) Hammer toe of left foot (M20.42) Active confirmed Problem Bilateral atherosclerosis of arteries of lower limbs (disorder) (75942339060961587 ) Atherosclerosis of artery of both lower extremities (I70.203) Active confirmed Vital Signs Blood pressure diastolic 84 mm Hg 12/27/2024 Height 5ft 6in in 12/27/2024 Blood pressure systolic 130 mm Hg 12/27/2024 Weight 298 lbs 12/27/2024 BMI 48.09 kg/m2 12/27/2024 Encounters Encounter Location Date Provider Diagnosis [address] [place] [address] 08/05/2024 Joanna Pedro Atherosclerosis of artery of both lower extremities I70.203 ; Tinea unguium B35.1 ; Pain in toe of left foot M79.675 and Pain in toe of right foot M79.[address] [facility] [place] [address] 10/18/2024 Joanna Pedro Atherosclerosis of artery of both lower extremities I70.203 ; Tinea unguium B35.1 ; Pain in toe of left foot M79.675 and Pain in toe of right foot M79.[address] [facility] [address] 12/27/2024 Joanna Pedro Atherosclerosis of artery of both lower extremities I70.203 ; Tinea unguium B35.1 ; Pain in toe of left foot M79.675 and Pain in toe of right foot M79.[address] [facility] [address] 02/24/2025 Joanna Pedro Assessments Encounter Date Diagnosis [...] B35.1) 10/18/2024 Tinea unguium (ICD-10 - B35.1) 10/18/2024 Pain in toe of left foot (ICD-10 - M79.675) 12/27/2024 Pain in toe of left foot (ICD-10 - M79.675) 08/05/2024 Pain in toe of right foot (ICD-10 - M79.674) 12/27/2024 Pain in toe of right foot (ICD-10 - M79.674) 10/18/2024 Pain in toe of right foot (ICD-10 - M79.674) Plan Of Treatment Next Appt Details Provider Name:Joanna fernandez, 06/27/2025 03:15:00 PM, [address] [place], [address], Insurance Providers Payer Name Payer Address Payer Phone Subscriber Number Group Number Insured Name Patient Relationship to Insured Coverage Start Date Coverage End Date Medicare National [employer] [address] [place] [address] [phone] [id number] Mercedez Hirsch Self - patient is the insured [employer] [address] [place] [address] [id number] Mercedez Hirsch Self - patient is the insured for Life [address] [place] [address] [phone] [id number] Mike Hirsch Spouse - patient is the spouse of the insured Medical (General) History Medical History History ICD Code osteoarthritis Back pain/Sciatica Cataracts Depression Diverticulosis Gall bladder problems Headaches High blood pressure Sciatica Measles Mumps Chicken pox Surgical History Surgery Date(Month/Year) cholecystectomy 1992 Breast Surgery, cyst
--- OUTSIDE RECORDS SUMMARY | 2025-06-16 20:15 | XMS_ITS | Encounter Summary ---
Author Organization [facility] Address [address] [place] [address] Phone Care Team Providers Care Gear Hobber Set Up Operator Name Role Phone Yogi Sawyer MD Primary Care Provider [phone] Encounter Details Date Type Department Care Team (Late st Contact Info) Description 03/05/2022 Ancillary Orders [address] [address] Nicol Valenzuela PA-C [address] [place] [address] Orthopedics & Sports Medicine, [place] [address] [email or web address] Injury of left wrist, subsequent encounter Social [...] encounter documented in this encounter Care Teams Gear Hobber Set Up Operator Relationship Specialty Start Date End Date Yogi Sawyer MD PCP - General Internal Medicine 02/22/22 documented as of this encounter Additional Source Comments The information contained in this document represents components of the legal health record. It is not the complete legal health record.[facility]
--- OUTSIDE RECORDS SUMMARY | 2025-06-16 20:15 | XMS_ITS | Patient Health Record ---
Author Organization [facility] Address [address] [place] [address] Care Team Providers Care Consultant Nurse Name Role Phone None, None Primary Care Provider Unavailabl e Reason For Referral No Information Plan Of Treatment No Information Insurance Providers Payer Name Payer Address Payer Phone Subscriber Number Group Number Insured Name Patient Relationship to Insured Coverage Start Date Coverage End Date ZZ DO NOT USE MEDICARE NON PAR [id number] Mercedez Hirsch Self - patient is the insured 0 [facility] [address] [place], [place] [id number] Mercedez Hirsch Self - patient is the insured 0
--- OUTSIDE RECORDS SUMMARY | 2025-06-16 20:15 | XMS_ITS | Clinical Summary ---
Author Organization [facility] Address [address] [place] [address] Phone Care Team Providers Care Lead Programmer Name Role Phone Yogi Sawyer MD Primary Care Provider [phone] Allergies Active Allergy Reactions Criticality Noted Date Comments Adhesive Unknown 01/15/2021 Latex Unknown 01/15/2021 Otvmablw-Huctaticpb-Ohlvdvlef Unknown 2020 Medications acetaminophen (TYLENOL) 500 MG [...] by mouth daily. Active mv,carli,iron,mn/fo lic acid/chol (BUIA-LYCY-MLYRE, PABA, ORAL) Take by mouth. Active oxyCODONE [...] this topic Medical Devices Implanted Type Area Ham Marker Device Identifier Shelf Expiration Date Model / Serial / Lot Clip Clip Right: Breast Radius Plate 3 Hole Bone Distal Volar Radial Geminus Titanium Rt Narrow - [id number] Implanted:Qty: 1 on 03/22/2022 by Chloe Rene MD at [facility] Right: Wrist [employer] [facility] [id number]-[id number] L / / Peg Bone 18x2.3mm Threaded Geminus Locking - [id number] Implanted:Qty: 5 on 03/22/2022 by Chloe Rene MD at [facility] Right: Wrist [employer] [facility] [id number] -[id number] / / Peg Bone 2.3mmx20 Threaded Geminus Locking - [id number] Implanted:Qty: 1 on 03/22/2022 by Chloe Rene MD at [facility] Right: Wrist [employer] [id number] -[id number] / / Screw Bone 10x3.5mm L Locking Cortical Geminus Titanium Fossa Specific Plating System - [id number] Implanted:Qty: 1 on 03/22/2022 by Chloe Rene MD at [facility] Right: Wrist [employer] [id number] -TS / / Screw Bone 12x3.5mm L Locking Cortical Geminus Titanium Fossa Specific Plating System - [id number] Implanted:Qty: 1 on 03/22/2022 by Chloe Rene MD at [facility] Right: Wrist [employer] [id number] -[id number] / / Screw Bone 12x3.5mm L Polyaxial Non Locking Compression Cortical Geminus Titanium Fossa Specific Plating - [id number] Implanted:Qty: 1 on 03/22/2022 by Chloe Rene MD at [facility] Right: Wrist [employer] [id number] -TS / / Insurance MEDICARE PART A & B GENERIC MEDICARE SUPPLEMENT FOR LIFE MEDICARE SUPPLEMENT MEDICARE PART A & B GENERIC MEDICARE SUPPLEMENT FOR LIFE MEDICARE SUPPLEMENT MEDICARE PART A & B GENERIC MEDICARE SUPPLEMENT [address] [place] [address] MEDICARE SUPPLEMENT MEDICARE PART A & B GENERIC MEDICARE SUPPLEMENT [address] [place] [address] MEDICARE SUPPLEMENT MEDICARE PART A & B GENERIC MEDICARE SUPPLEMENT Member Subscriber Plan / Payer (Ef fective 2005-Present) Name:Mercedez Ybarra Relation to Subscriber:Self Name:Mercedez Ybarra Payer ID:Not on file Group ID:Not on file Type:[employer]Wineem[employer] Address: [address] MEDICARE SUPPLEMENT MEDICARE PART A & B GENERIC MEDICARE SUPPLEMENT [place] [address] MEDICARE SUPPLEMENT MEDICARE PART A & B GENERIC MEDICARE SUPPLEMENT FOR LIFE MEDICARE SUPPLEMENT MEDICARE PART A & B GENERIC MEDICARE SUPPLEMENT Member Subscriber Plan / Payer (Ef fective 2005-Present) Name:Mercedez Ybarra Relation to Subscriber:Self Name:Mercedez Ybarra Payer ID:Not on file Group ID:Not on file Type:Indemnity Address: [address] [place] [id number] FOR LIFE MEDICARE SUPPLEMENT MEDICARE PART A & B GENERIC MEDICARE SUPPLEMENT Member Subscriber Plan / Payer (Ef fective 2005-Present) Name:Mercedez Ybarra Relation to Subscriber:Self Name:Mercedez Ybarra Payer ID:Not on file Group ID:Not on file Type:Indemnity Address: [address] MEDICARE SUPPLEMENT Advance Directives For more information, please contact: [phone] (9AM - 5PM [place], Friday-Friday) Documents on File Type Date Recorded Patient Napper Runner Expl anation Healthcare Proxy 03/25/2022 2:49 PM Care Teams Lead Programmer Relationship Specialty Start Date End Date Yogi Sawyer MD PCP - General Internal Medicine 02/22/22 Additional Source Comments The information contained in this document represents components of the legal health record. It is not the complete legal health record.[facility]
--- OUTSIDE RECORDS SUMMARY | 2025-06-16 20:15 | XMS_ITS | Encounter Summary ---
Author Organization [facility] Address [address] [address] Phone Care Team Providers Care Weight Loss Sales Consultant Name Role Phone Yogi Sawyer MD Primary Care Provider [phone] Encounter Details Date Type Department Care Team (Late st Contact Info) Description 03/22/2022 Procedure Pass OR Admitting Dept - Virtual Department [address] [place] [address] Social History Tobacco Use Types Packs/Day Years [...] on filedocumented in this encounter Care Teams Weight Loss Sales Consultant Relationship Specialty Start Date End Date Yogi Sawyer MD PCP - General Internal Medicine 02/22/22 documented as of this encounter Additional Source Comments The information contained in this document represents components of the legal health record. It is not the complete legal health record.[facility]
--- OUTSIDE RECORDS SUMMARY | 2025-06-16 20:15 | XMS_ITS | Encounter Summary ---
Author Organization [facility] Address [address] [place] [address] Phone Care Team Providers Care Slip Feeder Name Role Phone Yogi Sawyer MD Primary Care Provider [phone] Encounter Details Date Type Department Care Team (Late st Contact Info) Description 03/05/2022 Ancillary Orders [facility]ics & [facility] Medicine [address] [place] [address] Nicol Valenzuela PA-C [address] [place] [address] Orthopedics & Sports Medicine, [facility] [place], [place] [id number] Social History Tobacco Use Types Packs/Day Years [...] on filedocumented in this encounter Care Teams Slip Feeder Relationship Specialty Start Date End Date Yogi Sawyer MD PCP - General Internal Medicine 02/22/22 documented as of this encounter Additional Source Comments The information contained in this document represents components of the legal health record. It is not the complete legal health record.[facility]
== END 2025-06-16 15:33 | disposition home or self-care (01) ==
LOC: HO.HOS 14:47
PROVIDERS: PCP Family Medicine; Visit Provider Physician Assistant
DX: M17.11 Unilateral primary osteoarthritis, right knee (principal); Z96.652 Presence of left artificial knee joint
CPT/HCPCS: 99214; 99499

== ENCOUNTER → 2025-06-16 14:46 | Outpatient (BNVA) | payer MEDICARE, OTHER, SELFPAY | PROVIDERS: PCP Family Medicine; Visit Provider Physician Assistant | DX: M17.0 Bilateral primary osteoarthritis of knee (principal); Z96.652 Presence of left artificial knee joint | CPT/HCPCS: 99212 ==

== ENCOUNTER 2025-07-11 13:00 | Outpatient (RCR) | payer MEDICARE, OTHER, SELFPAY ==
--- NOTE | 2025-05-24 11:49 | MHC.PT.EP ---
[facility] [place] Office [place] Office [place] [facility] [address] Blaine Kirk [address] [phone] F: [phone] F: [phone] F: [phone] F: [phone] Physical Therapy Plan of Care Date of Evaluation: 05/24/25 Date of Surgery: 03/15/2025 Diagnosis: s/p L TKA 03/15/2025 Assessment: Patient is a 74 year old female presenting to PT s/p L TKA 03/15/2025. She presents today with impairments in pain, knee ROM, knee strength, hip strength, gait mechanics. Pt's current occupation is retired, with baseline physical activities including ambulating, stair negotiation, ADLs. Pt expresses fci goal of returning to PLOF, and is motivated to work towards this in PT. Clinical presentation today is most consistent with signs and sx associated with s/p L TKA 03/15/2025 and pt will benefit from skilled PT 2 week x 4 weeks to address the following problems and impairments noted upon evaluation: pain, knee ROM, knee strength, hip strength, gait mechanics. These problems limit the patient with the following functional activities: ambulating, ADLs, stair negotiation. The prescribed treatment plan of care is medically necessary. Co-morbidities of osteopenia, depression were identified and taken into considerations of plan of care. Pt was educated on HEP, role of PT, prognosis, POC. Frequency and Duration: The patient will be seen 2 x week x 4 weeks Short Term Goals: Pt will demonstrate L knee ROM to 120 in 2 weeks. Pt will demonstrate L knee MMT strength 5/5 in 2 weeks. Pt will demonstrate hip MMT strength at least 4/5 in 2 weeks. Halfway Goals: Pt will demonstrate improved LEFI score by 9 points in 4 weeks for improved functional mobility. Pt will demonstrate ability to ambulate with LRD in 4 weeks and good mechanics for improved access to the community. Pt will demonstrate ability to complete ADLs with min to no limitations in 4 weeks for return to PLOF. Pt will demonstrate ability to negotiate stairs with min to no pain in 4 weeks for ability to attend grand daughters wedding. Treatment Plan: Modalities to reduce pain, spasms and effusion. Manual therapy to restore motion and function. Therapeutic exercise to improve strength and flexibility. Neuromuscular re-education for posture and balance. Therapeutic activities to return to functional activities of daily living. Electronically signed by: Margoth Torres, PT, DPT, ATC Please sign and return to therapist. Thank you for your referral.
--- NOTE | 2025-07-11 13:53 | MHC.PT.DC ---
[facility] [place] Office [place] [facility] [place] Office [address] Blaine Kirk [address] [phone] F: [phone] F: [phone] F: [phone] F: [phone] Physical Therapy Discharge Report Diagnosis: s/p L TKA 03/15/2025 Date of Surgery: 03/15/2025 Date of Evaluation: 05/24/25 Date of Discharge: 07/11/25 Treatments to Date: 10 Cancellations to Date: 7 No Shows to Date: 0 Discharge Status: Improved Function Patient Elected to Stop Discharge Summary: 07/11/2025: She is self d/c herself from PT today. She is getting her R knee replaced on 08/02 and has a lot of appointments coming up therefore would like to finish this PT today for the L side. I discussed recommendation to continue with her exercises up to surgery and also reviewed the ones she should start with initially post op. She is understanding. At this point she appears more limited on the R vs L anyway in terms of PT so it seems appropriate to hold further progressions until after her other knee replacement. Electronically signed by: Margoth Torres, PT, DPT, ATC Please sign and return to therapist. Thank you for your referral.
== END 2025-07-11 13:53 | disposition home or self-care (01) ==
LOC: HO.PTCHIC 13:00
PROVIDERS: PCP Family Medicine; Visit Provider Orthopaedic Surgery
DX: M17.11 Unilateral primary osteoarthritis, right knee (principal); Z96.652 Presence of left artificial knee joint
CPT/HCPCS: 97110; 97112; 97161

== ENCOUNTER → 2025-07-18 10:07 | Outpatient (BNVA) | payer MEDICARE, OTHER, SELFPAY | PROVIDERS: PCP Family Medicine | DX: Z01.818 Encounter for other preprocedural examination (principal) ==

== ENCOUNTER 2025-07-27 10:03 | Outpatient (AMB) | payer MEDICARE, OTHER, SELFPAY ==
--- OUTSIDE RECORDS SUMMARY | 2024-03-18 06:15 | XMS_ITS ---
Author Organization [facility] Address [address] [place] [address] Care Team Providers Care Vp & General Counsel Name Role Phone Evi HOLBROOK, Nicol Primary Care Provider UnavailJoanna Leavitt Unavailable [phone] Encounters Encounter Location Date Provider Diagnosis [address] [address] 03/18/2024 Joanna Pedro Plan Of Treatment Next Appt Details Provider Name:Joanna fernandez, 09/21/2025 01:30:00 PM, [address] [place], [address], Progress Notes * JASSIDUSTINEMILY CarolineRasmesOB:[birth year] (74 yo F)Acc No.[id number]:03/18/2024 Progress Note Patient: Mercedez LEAHY Provider: Huang Pedro DPM :1950 A ge:73 Y S ex:Female Date:03/18/2024 Address:[address] [place], [place] [id number] Pcp:Nicol Steve MD Subjective: * Chief Complaints: [...] 03/18/2024 Generated for Lilliana trevizo/Christopher/Esperanza on: 1 11:02 AM EST
--- OUTSIDE RECORDS SUMMARY | 2025-02-28 05:30 | XMS_ITS ---
Author Organization [facility] Address [address] [place] [address] Care Team Providers Care Vp Platforms Name Role Phone Evi HOLBROOK, Nicol Primary Care Provider UnavailJoanan Leavitt Unavailable [phone] Encounters Encounter Location Date Provider Diagnosis [address] [address] 02/28/2025 Joanna Pedro Plan Of Treatment Next Appt Details Provider Name:Joanna fernandez, 09/21/2025 01:30:00 PM, [address] [place], [address], Progress Notes * JASSIDUSTINEMILY CarolineRamsesOB:[birth year] (74 yo F)Acc No.[id number]:02/28/2025 Progress Note Patient: Mercedez LEAHY Provider: Huang Pedro DPM :1950 A ge:74 Y S ex:Female Date:02/28/2025 Address:[address] [place], [place] [id number] Pcp:Nicol Steve MD Subjective: * Chief Complaints: [...] 02/28/2025 Generated for Lilliana trevizo/Christopher/Esperanza on: 1 11:01 AM EST
[2025-07-27 10:06] VITALS: BMI 37.9
--- NOTE | 2025-07-27 10:06 | A.OFFVIS_ITS ---
Vital Signs 07/27/25 10:06 Height 5 ft 6 in Weight 235 lb BMI 37.9 Intake Visit Reasons: pre-op RTKA w/NE 08/02/25 Intake Note: Mercedez is a 74 year old female who presents today for their Pre-operative visit for discussion of their upcoming Right Total Knee Arthroplasty scheduled for 08/02/[address] Arnold. Consents signed in office today. Allergies bacitracin (From Neosporin ([id number])) Allergy (Intermediate, Verified 07/27/25 10:14) Blister house dust Allergy (Intermediate, Verified 07/27/25 10:14) Itchy Eyes latex Allergy (Intermediate, Verified 07/27/25 10:14) Redness of Skin neomycin (From Neosporin ([id number])) Allergy (Intermediate, Verified 07/27/25 10:14) Blister polymyxin B (From Neosporin ([id number]-[id number])) Allergy (Intermediate, Verified 07/27/25 10:14) Blister Medication List - Last Reconciled 07/27/25 by Estrada Guillen PA-C acetaminophen 650 mg (2 x 325 mg) PO Q6H PRN 30 days amlodipine 2.5 mg PO QAM amoxicillin 2,000 mg (4 x 500 mg) PO ONCE 1 day aspirin 81 mg PO Q OTHER DAY cetirizine (Zyrtec) 10 mg PO DAILY PRN cholecalciferol (vitamin D3) (Vitamin D3) 25 mcg PO DAILY clobetasol 0.05% 1 appl topical BID cyanocobalamin (vitamin B-12) (Vitamin B-12) 500 mcg PO DAILY [Folding Front Wheeled walker Duration: 99 days] gabapentin 300 mg PO TID omeprazole 40 mg PO QAM oxycodone 5 mg PO Q8H PRN pravastatin 40 mg PO QAM [Raised toilet seat w handrails duration - 99 days] sennosides (Senna Lax) 17.2 mg (2 x 8.6 mg) PO BEDTIME 30 days sertraline 50 mg PO QAM tirzepatide (weight loss) (Zepbound) 10 mg subcut QWEEK triamterene-hydrochlorothiazid 37.5-25 mg 1 cap PO QAM zolpidem 10 mg PO BEDTIME PRN HPI Comments Details: Ms Mauro presents to the office today for Orthopedic Pre op clearance. She is scheduled for Rt TKA 08/02/[address] Arnold . She has been experiencing right knee pain for several years. She recently underwent LT TKA 03/[address] Arnold which was uncomplicated. She has had gel and steroid injections with short-term relief. Most recent injection being almost 2 years ago. She does use a walker to ambulate and states the stairs are difficult. She is unable to engage in exercise or regular ambulation due to her knee pain. Left TKA Implants: [employer] 09/28/ps/29a cemented posterior stabilized Patient lives at home with her daughter and son-in-law and 2 children. She does own a walker. She would like to go to a [facility] [place] due to not having available help at home on [place]. She was DC to [facility] for her previous TKA. Prior Medical clearances: -PCP clearance done at [facility] by Elsa Prieto POLISHING MACHINE OPERATOR: 74-year-old female with past medical history of hypertension, hyperlipidemia, DARLIN not on CPAP, chronic constipation, GERD, insomnia, obesity and OA who presents for preoperative medical evaluation in anticipation of the upcoming procedure. No absolute medical contraindications identified to proceeding with the proposed surgery. A KI assessment: The patient has following risk factors: Age greater than 55 years, hypertension, nephrotoxic agents; which puts them at elevated risk for DEBRA postoperatively. DARLIN assessment: The patient has untreated sleep apnea. Recommendation: Further workup not recommended as it will not alter management. Intraoperative DARLIN protocols recommended. VTE risk: Elevated-joint replacement Bleeding risk: Elevated VTE prophylaxis: At least 4 weeks of chemical prophylaxis total +IPC while admitted. Agent at surgeon's discretion. No history of diabetes; on Zepbound for weight loss and last time she took it was on 07/10/2025 Quit smoking approx 40 years ago Patient has no other cardiopulmonary or vascular comorbidities. [facility] Medical History (Updated 07/14/25 @ 12:50 by Brandy Villareal RN) Lichen sclerosus of female genitalia Environmental allergies GERD (gastroesophageal reflux disease) Fatty liver DARLIN (obstructive sleep apnea) Urinary incontinence Osteopenia Osteoarthritis Obesity Lumbar radiculopathy Depression Hyperlipidemia Hypertension Surgical History (Updated 07/14/25 @ 12:32 by Brandy Villareal RN) Hx of basal cell carcinoma excision History of total left knee replacement (TKR) (03/15/25) Hx of left breast biopsy Hx of tubal ligation History of open reduction and internal fixation (ORIF) procedure History of esophagogastroduodenoscopy (EGD) H/O colonoscopy Hx of cholecystectomy Social History (Updated 07/14/25 @ 12:34 by Brandy Villareal RN) Household Members: Family and Children Housing: House Are you a primary career coordinator to a significant other at home: No Do you presently have visiting nurse or other home services: No Patient Tobacco Use Status: Former Tobacco user Tobacco use type: Cigarette Years Smoked: 19 service: No Current occupational status: retired Review of Systems Const All systems reviewed & are unremarkable except as noted in HPI and below Physical Exam Vital Signs: BMI result Body Mass Index 37.9 Const General: cooperative, healthy appearing, comfortable, no acute distress, well developed and alert Orientation/consciousness: patient oriented x3 HEENT Head: Yes normal to inspection, Yes normocephalic and Yes atraumatic Ears: hearing grossly normal bilaterally Eyes General: appearance normal, both eyes and all related structures Neck Neck: Yes normal visual inspection and Yes no lymphadenopathy Resp Effort & Inspection: normal respiratory effort and able to speak in complete sentences Cardio Rate: regular rate Peripheral pulses: Peripheral pulses 2+ throughout GI Inspection: Yes normal to inspection Palpation (GI): Soft to palpation Skin General skin exam: no rashes or lesions noted Neuro General: patient oriented x3 Extrem Other: Right knee skin intact, no open wounds or abraisons. She has medial joint line tenderness to palpation with a markedly antalgic gait. She has 10-95 degrees motion on the right with stable to varus and valgus stress. She has a 2+ dorsalis pedis pulse in his firing her TA/GC/EHL. Skin is intact to light touch. No evidence of venous stasis. Psych Appearance: grossly normal Mental Status: mental status grossly normal Results Reviewed Results Reviewed: X-rays of the right knee obtained in the office today for preop Assessment & Plan Assessment & Plan (1) Osteoarthritis of right knee: Code(s): M17.11 - Unilateral primary osteoarthritis, right knee Category: Medical Plan: The patient has exhausted all conservative measures consisting of lifestyle modifications, physical therapy, analgesics, corticosteroid injections and use of assisted devices and continues to have significant limitations in daily activities along with decreased quality of life. Given the patient's desire to improve their quality of life, surgical intervention consisting of joint replacement surgery is recommended at this time.? We discussed the procedure in detail today; which includes pre op preparation with labs and reviewing patients medication regimen prior to surgery. Patient has stopped NSAIDs and Zepbound 14 days before surgery. Preop labs were ordered today which include a BMP, CBC, type and screen. I discussed at length the post op course which includes physical therapy services in the hospital along with the discharge routine and the patients plan upon discharge. Patient is interested in acute rehab versus short-term rehab postoperatively upon discharge. [facility]. Patient does have all appropriate DME's. I explained to the patient, once they are DC home, they will receive VNA services which will include PT 2-3x per week. We also discussed their choice for outpatient PT once they are discharged from home PT. She is interested in either [facility] or [facility]. Once she is DC from home PT, we will place the order. Post op DVT ppx was also discussed and the considering the patients BMI, she will be placed on Lovenox 40 mg subQ once a day for 6 weeks. The patient is content with this plan and she tolerated it well with her previous surgery. I reviewed with the patient their post op pain medication regimen along with the detailed wean program. The patient did express understanding of this and agreed to the narcotic policy. Lastly, I discussed with the patient the risks to the procedure. Risks including but not limited to infection, injury to surrounding nerves, tissue , bone, small and large vessels, stiffness, aseptic loosening, fracture, dislocation, amputation, DVT/PE along with intraoperative complications including but not limited to . The patient does express understanding, all questions were answered and the patient would like to proceed? with Right total knee arthroplasty with Dr. Arnold. Consents were signed and dated while in the office today.? Patient will return 08/18/25 for her postop appointment. Postop plan: -STR -Lovenox -Avoid celebex -Has walker Orders: Orders Complete Blood Count Auto Diff Today Z01.818 - Encounter for other preprocedural examination Basic Metabolic Panel Today Z01.818 - Encounter for other preprocedural examination XR knee RT 3V Today M17.11 - Unilateral primary osteoarthritis, right knee Type and Screen Today Z01.818 - Encounter for other preprocedural examination Coding Level of Care Code Est Pt Level 3 (32481) Add On Problem Visit Only Diagnoses Osteoarthritis of right knee M17.11
--- OUTSIDE RECORDS SUMMARY | 2025-07-27 11:02 | XMS_ITS | Encounter Summary ---
Author Organization [facility] Address [address] [address] Phone Care Team Providers Care Surveillance Supervisor Name Role Phone Yogi Sawyer MD Primary Care Provider [phone] Encounter Details Date Type Department Care Team (Late st Contact Info) Description 03/22/2022 Procedure Pass OR Admitting Dept - Virtual Department [address] [place] [address] Social History Tobacco Use Types Packs/Day Years [...] on filedocumented in this encounter Care Teams Surveillance Supervisor Relationship Specialty Start Date End Date Yogi Sawyer MD PCP - General Internal Medicine 02/22/22 documented as of this encounter Additional Source Comments The information contained in this document represents components of the legal health record. It is not the complete legal health record.[facility]
--- OUTSIDE RECORDS SUMMARY | 2025-07-27 11:02 | XMS_ITS | Patient Health Record ---
Author Organization [facility] Address [address] [place] [address] Care Team Providers Care Green Building Materials Distributor Name Role Phone None, None Primary Care Provider Unavailabl e Reason For Referral No Information Plan Of Treatment No Information Insurance Providers Payer Name Payer Address Payer Phone Subscriber Number Group Number Insured Name Patient Relationship to Insured Coverage Start Date Coverage End Date ZZ DO NOT USE MEDICARE NON PAR [id number] Mercedez Hirsch Self - patient is the insured 0 [facility] [address] [place], [place] [id number] Mercedez Hirsch Self - patient is the insured 0
--- OUTSIDE RECORDS SUMMARY | 2025-07-27 11:02 | XMS_ITS | Clinical Summary ---
Author Organization [facility] Address [address] [place] [address] Phone Care Team Providers Care Nurse Executive Name Role Phone Yogi Sawyer MD Primary Care Provider [phone] Allergies Active Allergy Reactions Criticality Noted Date Comments Adhesive Unknown 01/15/2021 Latex Unknown 01/15/2021 Znonsdsp-Xoigklrntc-Xhojdgzcx Unknown 2020 Medications acetaminophen (TYLENOL) 500 MG [...] by mouth daily. Active mv,carli,iron,mn/fo lic acid/chol (XLDX-HQAE-OWCIM, PABA, ORAL) Take by mouth. Active oxyCODONE [...] this topic Medical Devices Implanted Type Area Operations Specialist Device Identifier Shelf Expiration Date Model / Serial / Lot Clip Clip Right: Breast Radius Plate 3 Hole Bone Distal Volar Radial Geminus Titanium Rt Narrow - [id number] Implanted:Qty: 1 on 03/22/2022 by Chloe Rene MD at [facility] Right: Wrist [employer]KE[employer] [facility] [id number]-RTN-[id number] L / / Peg Bone 18x2.3mm Threaded Geminus Locking - [id number] Implanted:Qty: 5 on 03/22/2022 by Chloe Rene MD at [facility] Right: Wrist [employer] [facility] [id number] -TS / / Peg Bone 2.3mmx20 Threaded Geminus Locking - [id number] Implanted:Qty: 1 on 03/22/2022 by Chloe Rene MD at [facility] Right: Wrist [employer] [id number] -TS / / Screw Bone 10x3.5mm L Locking Cortical Geminus Titanium Fossa Specific Plating System - [id number] Implanted:Qty: 1 on 03/22/2022 by Chloe Rene MD at [facility] Right: Wrist [employer] [id number] -TS / / Screw Bone 12x3.5mm L Locking Cortical Geminus Titanium Fossa Specific Plating System - [id number] Implanted:Qty: 1 on 03/22/2022 by Chloe Rene MD at [facility] Right: Wrist [employer] [id number] -TS / / Screw Bone 12x3.5mm L Polyaxial Non Locking Compression Cortical Geminus Titanium Fossa Specific Plating - [id number] Implanted:Qty: 1 on 03/22/2022 by Chloe Rene MD at [facility] Right: Wrist [employer] [id number] -TS / / Insurance MEDICARE PART A & B GENERIC MEDICARE SUPPLEMENT FOR LIFE MEDICARE SUPPLEMENT MEDICARE PART A & B GENERIC MEDICARE SUPPLEMENT FOR LIFE MEDICARE SUPPLEMENT MEDICARE PART A & B GENERIC MEDICARE SUPPLEMENT [address] [address] MEDICARE SUPPLEMENT MEDICARE PART A & B GENERIC MEDICARE SUPPLEMENT [place] [address] MEDICARE SUPPLEMENT [facility] Address: [address] [place] [address] MEDICARE PART A & B GENERIC MEDICARE SUPPLEMENT Member Subscriber Plan / Payer (Ef fective 2005-Present) Name:Mercedez Ybarra Relation to Subscriber:Self Name:Mercedez Ybarra Payer ID:Not on file Group ID:Not on file Type:[email or web address] Address: [address] MEDICARE SUPPLEMENT [facility] Address: [facility] [address] [place] [address] MEDICARE PART A & B GENERIC MEDICARE SUPPLEMENT [place] [address] MEDICARE SUPPLEMENT [facility] Address: [facility] [address] [place] [address] MEDICARE PART A & B GENERIC MEDICARE SUPPLEMENT FOR LIFE MEDICARE SUPPLEMENT MEDICARE PART A & B GENERIC MEDICARE SUPPLEMENT Member Subscriber Plan / Payer (Ef fective 2005-Present) Name:Mercedez Ybarra Relation to Subscriber:Self Name:Mercedez Ybarra Payer ID:Not on file Group ID:Not on file Type:Indemnity Address: [address] [place] [id number] FOR LIFE MEDICARE SUPPLEMENT MEDICARE PART A & B GENERIC MEDICARE SUPPLEMENT Member Subscriber Plan / Payer (Ef fective 2005-Present) Name:Mercedez Ybarra Relation to Subscriber:Self Name:Mercedez Ybarra Payer ID:Not on file Group ID:Not on file Type:Indemnity Address: [address] MEDICARE SUPPLEMENT Advance Directives For more information, please contact: [phone] (9AM - 5PM [facility], Friday-Friday) Documents on File Type Date Recorded Patient Emt/Paramedic Expl anation Healthcare Proxy 03/25/2022 2:49 PM Care Teams Nurse Executive Relationship Specialty Start Date End Date Yogi Sawyer MD PCP - General Internal Medicine 02/22/22 Additional Source Comments The information contained in this document represents components of the legal health record. It is not the complete legal health record.[facility]
--- OUTSIDE RECORDS SUMMARY | 2025-07-27 11:02 | XMS_ITS | Encounter Summary ---
Author Organization [facility] Address [address] [place] [address] Phone Care Team Providers Care Quilting Supervisor Name Role Phone Yogi Sawyer MD Primary Care Provider [phone] Encounter Details Date Type Department Care Team (Late st Contact Info) Description 03/05/2022 Ancillary Orders [address] [address] Nicol Valenzuela PA-C [address] [place] [address] Orthopedics & Sports Medicine, [place] [address] [email or web address] Injury of left wrist, subsequent encounter Social [...] encounter documented in this encounter Care Teams Quilting Supervisor Relationship Specialty Start Date End Date Yogi Sawyer MD PCP - General Internal Medicine 02/22/22 documented as of this encounter Additional Source Comments The information contained in this document represents components of the legal health record. It is not the complete legal health record.[facility]
--- OUTSIDE RECORDS SUMMARY | 2025-07-27 11:02 | XMS_ITS | Patient Health Record ---
Author Organization [facility] Address [address] [facility] [place] [address] Care Team Providers Care Electric Sealing Machine Operator Name Role Phone Nicol Steve MD Primary Care Provider Joanna Brown Unavailable [phone] Allergies Allergen (clinical drug ingredient) Drug/Non Drug [...] Once a day; Duration: 30 day(s) Active Gabapentin 100 MG 1 capsule Orally Onc e a day Active Zepbound 5 MG/0.5ML 0.5 mL Subcutaneous Active Zolpidem Tartrate ER 12.5 MG 1 tablet at bedtime as needed Orally Once a day Active Clobetasol Propionate 0.05 % 1 application Externally Twice a day; Duration: 10 day(s) Active Sertraline HCl 50 MG 1 tablet Orally Onc e a day; Duration: 30 day(s) Active Triamterene-HCTZ 37.5-25 MG 1 tablet in the morning Orally Once a day; Duration: 30 day(s) Active oxyCODONE-Acetaminophen 7.5-325 MG 1 tablet as needed Orally every 6 hrs Active Pravastatin Sodium 40 MG 1 tablet Orally Once a day; Duration: 30 day(s) Active Omeprazole 40 MG 1 capsule 30 minutes before morning meal Orally Once a day; Duration: 30 day(s) Active Immunizations Vaccine Route Administration Date Status Comme nts Influenza Unknown 03/28/2022 Administered Influenza Unknown 04/29/2025 Administered COVID-19 Pfizer BioNTech Vaccine Unknown 10/11/2020 [...] Problem Acquired hammer toe of right foot (1720939797835869) Hammer toe of right foot (M20.41) Active confirmed Problem Acquired hammer toe of left foot (8456234377131652) Hammer toe of left foot (M20.42) Active confirmed Problem Bilateral atherosclerosis of arteries of lower limbs (disorder) (37940370140411134 ) Atherosclerosis of artery of both lower extremities (I70.203) Active confirmed Vital Signs Blood pressure diastolic 83 mm Hg 06/27/2025 Height 5ft 6in in 06/27/2025 Blood pressure systolic 128 mm Hg 06/27/2025 Weight 222 lbs 06/27/2025 BMI 35.83 kg/m2 06/27/2025 Encounters Encounter Location Date Provider Diagnosis [facility] [place] [address] 08/05/2024 Joanna Pedro Atherosclerosis of artery of both lower extremities I70.203 ; Tinea unguium B35.1 ; Pain in toe of left foot M79.675 and Pain in toe of right foot M79.674 [facility] [address] [place] [address] 10/18/2024 Joanna Perica Atherosclerosis of artery of both lower extremities I70.203 ; Tinea unguium B35.1 ; Pain in toe of left foot M79.675 and Pain in toe of right foot M79.[address] [place] [address] 12/27/2024 Joanna Pedro Atherosclerosis of artery of both lower extremities I70.203 ; Tinea unguium B35.1 ; Pain in toe of left foot M79.675 and Pain in toe of right foot M79.[address] [address] 06/27/2025 Joanna Perica Atherosclerosis of artery of both lower extremities I70.203 ; Tinea unguium B35.1 ; Pain in toe of left foot M79.675 and Pain in toe of right foot M79.[address] [address] 02/24/2025 Joanna Pedro Assessments Encounter Date Diagnosis (ICD Code) Assessment Notes Treatment Notes Treatment Clinical Notes Section Notes 08/05/2024 Atherosclerosis of artery of both lower extremities (ICD-10 - I70.203) 10/18/2024 Atherosclerosis of artery of both lower extremities (ICD-10 - I70.203) 12/27/2024 Atherosclerosis of artery of both lower extremities (ICD-10 - I70.203) 08/05/2024 Tinea unguium (ICD-10 - B35.1) 06/27/2025 Atherosclerosis of artery of both lower extremities (ICD-10 - I70.203) 08/05/2024 Pain in toe of left foot (ICD-10 - M79.675) 06/27/2025 Tinea unguium (ICD-10 - B35.1) 12/27/2024 Tinea unguium (ICD-10 - B35.1) 10/18/2024 Tinea unguium (ICD-10 - B35.1) 10/18/2024 Pain in toe of left foot (ICD-10 - M79.675) 12/27/2024 Pain in toe of left foot (ICD-10 - M79.675) 06/27/2025 Pain in toe of left foot (ICD-10 - M79.675) 08/05/2024 Pain in toe of right foot (ICD-10 - M79.674) 06/27/2025 Pain in toe of right foot (ICD-10 - M79.674) 12/27/2024 Pain in toe of right foot (ICD-10 - M79.674) 10/18/2024 Pain in toe of right foot (ICD-10 - M79.674) Plan Of Treatment Next Appt Details Provider Name:Joanna fernandez, 09/21/2025 01:30:00 PM, [address] [place], [address], Insurance Providers Payer Name Payer Address Payer Phone Subscriber Number Group Number Insured Name Patient Relationship to Insured Coverage Start Date Coverage End Date Medicare National [employer] [address] [place] [address] [id number] Mercedez Hirsch Self - patient is the insured Infectious [address] [place] [address] [phone] [id number] Mike Hirsch Spouse - patient is the spouse of the insured Medical (General) History Medical History History ICD Code osteoarthritis Back pain/Sciatica Cataracts Depression Diverticulosis Gall bladder problems Headaches High blood pressure Sciatica Measles Mumps Chicken pox Surgical History Surgery Date(Month/Year) cholecystectomy 1992 Breast Surgery, cyst knee surgery 03/15/25
--- OUTSIDE RECORDS SUMMARY | 2025-07-27 11:02 | XMS_ITS | Encounter Summary ---
Author Organization [facility] Address [address] [place] [address] Phone Care Team Providers Care Quality Assurance Supervisor Final Name Role Phone Yogi Sawyer MD Primary Care Provider [phone] Encounter Details Date Type Department Care Team (Late st Contact Info) Description 03/05/2022 Ancillary Orders [facility] [address] [place] [address] Nicol Valenzuela PA-C [address] [place] [address] Orthopedics & Sports Medicine, [facility] [place] [address] [email or web address] Social History Tobacco Use Types Packs/Day Years [...] on filedocumented in this encounter Care Teams Quality Assurance Supervisor Final Relationship Specialty Start Date End Date Yogi Sawyer MD PCP - General Internal Medicine 02/22/22 documented as of this encounter Additional Source Comments The information contained in this document represents components of the legal health record. It is not the complete legal health record.[facility]
== END 2025-07-27 10:58 | disposition home or self-care (01) ==
LOC: HO.HOS 10:03
PROVIDERS: PCP Family Medicine; Visit Provider Physician Assistant
DX: M17.11 Unilateral primary osteoarthritis, right knee (principal)
CPT/HCPCS: 99024

== ENCOUNTER → 2025-07-27 10:05 | Outpatient (BNV) | payer MEDICARE, OTHER, SELFPAY | PROVIDERS: Visit Provider Radiology Diagnostic Radiology | DX: M17.11 Unilateral primary osteoarthritis, right knee (principal) | CPT/HCPCS: 73562 ==

== ENCOUNTER 2025-07-27 10:52 | Outpatient (REF) | payer MEDICARE, OTHER, SELFPAY ==
--- OUTSIDE RECORDS SUMMARY | 2024-03-18 06:15 | XMS_ITS ---
Author Organization [facility] Address [address] [place] [address] Care Team Providers Care Natural Resource Officer Name Role Phone Evi HOLBROOK, Nicol Primary Care Provider UnavailJoanna Leavitt Unavailable [phone] Encounters Encounter Location Date Provider Diagnosis [address] [address] 03/18/2024 Joanna Pedro Plan Of Treatment Next Appt Details Provider Name:Joanna fernandez, 09/21/2025 01:30:00 PM, [address] [place], [address], Progress Notes * JASSIDUSTINEMILY CarolineRamsesOB:[birth year] (74 yo F)Acc No.[id number]:03/18/2024 Progress Note Patient: Mercedez LEAHY Provider: Huang Pedro DPM :1950 A ge:73 Y S ex:Female Date:03/18/2024 Address:[address] [place], [place] [id number] Pcp:Nicol Steve MD Subjective: * Chief Complaints: * * Medical History: Objective: * Vitals: Assessment: Plan: * Treatment: * Images: * The named appointment provid er may or may not be the originator of this progress note, and it is not deemed complete until electronically signed by the appointment provider. Sign off status: Pending * Provider: Huang Pedro DPM Date: 0 03/18/2024 Generated for Lilliana trevizo/Christopher/Shaiitting on: 0 07/29/2025 11:40 AM EST
--- OUTSIDE RECORDS SUMMARY | 2025-02-28 05:30 | XMS_ITS ---
Author Organization [facility] Address [address] [place] [address] Care Team Providers Care Wire Spooler Name Role Phone Evi HOLBROOK, Nicol Primary Care Provider UnavailJoanna Leavitt Unavailable [phone] Encounters Encounter Location Date Provider Diagnosis [address] [address] 02/28/2025 Joanna Pedro Plan Of Treatment Next Appt Details Provider Name:Joanna fernandez, 09/21/2025 01:30:00 PM, [address] [place], [address], Progress Notes * JASSIDUSTINEMILY CarolineRamsesOB:[birth year] (74 yo F)Acc No.[id number]:02/28/2025 Progress Note Patient: Mercedez LEAHY Provider: Huang Pedro DPM :1950 A ge:74 Y S ex:Female Date:02/28/2025 Address:[address] [place], [place] [address] Pcp:Nicol Steve MD Subjective: * Chief Complaints: * * Medical History: Objective: * Vitals: Assessment: Plan: * Treatment: * Images: * The named appointment provid er may or may not be the originator of this progress note, and it is not deemed complete until electronically signed by the appointment provider. Sign off status: Pending * Provider: Huang Pedro DPM Date: 0 02/28/2025 Generated for Lilliana trevizo/Christopher/Shaiitting on: 0 07/29/2025 11:39 AM EST
--- NOTE | ~2025-07-27 | XR_ITS ---
EXAMINATION: XR KNEE, RIGHT CLINICAL INFORMATION: M17.11 - Unilateral primary osteoarthritis, right knee COMPARISON: 03/15/2025, 11/01/2024. TECHNIQUE: AP view bilateral knees standing, lateral and patellofemoral views right knee. FINDINGS: LEFT KNEE: Total knee arthroplasty in place. Tibial and femoral components appear intact, well seated, in anatomic alignment. No periprosthetic complication. Normal soft tissues. RIGHT KNEE: No fracture, dislocation, or suspicious bone lesion. There is normal alignment. There is severe osteoarthrosis, tricompartmental, with nnqn-gp-guxl appearance in the medial compartment, and near eian-ae-ybza appearance in the lateral and patellofemoral compartments. There are large marginal osteophytes in all 3 compartments. There is subchondral sclerosis and irregularity of the articular surfaces of the tibial plateau and femoral condyles. There is spurring of the tibial spines present. There is a large suprapatellar joint effusion present. There may be loose bodies in the posterior joint as seen on the lateral projection. No discrete soft tissue abnormalities. XR/XR knee RT 3V IMPRESSION: 1. RIGHT knee demonstrating severe tricompartmental osteoarthrosis with xkuf-yz-bdry appearance in the medial compartment, and large tricompartmental osteophytes. There is a significant suprapatellar joint effusion present. 2. LEFT knee demonstrating total knee arthroplasty without complication on this AP view. Electronically signed by: Scott Manzanares MD 07/27/2025 10:25 AM [facility]
--- OUTSIDE RECORDS SUMMARY | 2025-07-29 11:40 | XMS_ITS | Clinical Summary ---
Author Organization [facility] Address [address] [place] [address] Phone Care Team Providers Care Turfgrass Technician Name Role Phone Yogi Sawyer MD Primary Care Provider [phone] Allergies Active Allergy Reactions Criticality Noted Date Comments Adhesive Unknown 01/15/2021 Latex Unknown 01/15/2021 Mznzhyxl-Svkcmyagel-Hvzkfoipo Unknown 2020 Medications acetaminophen (TYLENOL) 500 MG [...] by mouth daily. Active mv,carli,iron,mn/fo lic acid/chol (PGTT-LYMZ-SWXMV, PABA, ORAL) Take by mouth. Active oxyCODONE [...] this topic Medical Devices Implanted Type Area Tower Watchman Device Identifier Shelf Expiration Date Model / Serial / Lot Clip Clip Right: Breast Radius Plate 3 Hole Bone Distal Volar Radial Geminus Titanium Rt Narrow - [id number] Implanted:Qty: 1 on 03/22/2022 by Chloe Rene MD at [facility] Right: Wrist [employer] [facility] [id number] / / Peg Bone 18x2.3mm Threaded Geminus Locking - [id number] Implanted:Qty: 5 on 03/22/2022 by Chloe Rene MD at [facility] Right: Wrist [employer] [facility] [id number] -[id number] / / Peg Bone 2.3mmx20 Threaded Geminus Locking - [id number] Implanted:Qty: 1 on 03/22/2022 by Chloe Rene MD at [facility] Right: Wrist [employer] [id number] -[id number] / / Screw Bone 10x3.5mm L Locking Cortical Geminus Titanium Fossa Specific Plating System - [id number] Implanted:Qty: 1 on 03/22/2022 by Chloe Rene MD at [facility] Right: Wrist [employer] [id number] -[id number] / / Screw Bone 12x3.5mm L Locking Cortical Geminus Titanium Fossa Specific Plating System - [id number] Implanted:Qty: 1 on 03/22/2022 by Chloe Rene MD at [facility] Right: Wrist [employer] [id number] -[id number] / / Screw Bone 12x3.5mm L Polyaxial Non Locking Compression Cortical Geminus Titanium Fossa Specific Plating - [id number] Implanted:Qty: 1 on 03/22/2022 by Chloe Rene MD at [facility] Right: Wrist [employer] [id number] -[id number] / / Insurance MEDICARE PART A & B GENERIC MEDICARE SUPPLEMENT FOR LIFE MEDICARE SUPPLEMENT MEDICARE PART A & B GENERIC MEDICARE SUPPLEMENT FOR LIFE MEDICARE SUPPLEMENT MEDICARE PART A & B GENERIC MEDICARE SUPPLEMENT [place] [address] MEDICARE SUPPLEMENT MEDICARE PART A & B GENERIC MEDICARE SUPPLEMENT [place] [address] MEDICARE SUPPLEMENT [facility] Address: [address] [place] [address] MEDICARE PART A & B GENERIC MEDICARE SUPPLEMENT Member Subscriber Plan / Payer (Ef fective 2005-Present) Name:Mercedez Ybarra Relation to Subscriber:Self Name:Mercedez Ybarra Payer ID:Not on file Group ID:Not on file Type:[employer] Address: [address] MEDICARE SUPPLEMENT [facility] Address: [facility] [address] [place] [address] MEDICARE PART A & B GENERIC MEDICARE SUPPLEMENT [place] [address] MEDICARE SUPPLEMENT [facility] Address: [facility] [address] [place] [address] MEDICARE PART A & B GENERIC MEDICARE SUPPLEMENT FOR LIFE MEDICARE SUPPLEMENT MEDICARE PART A & B GENERIC MEDICARE SUPPLEMENT Member Subscriber Plan / Payer (Ef fective 2005-Present) Name:Mercedez Ybarra Relation to Subscriber:Self Name:Mercedez Ybarra Payer ID:Not on file Group ID:Not on file Type:Indemnity Address: [address] [place] [id number] FOR LIFE MEDICARE SUPPLEMENT MEDICARE PART A & B GENERIC MEDICARE SUPPLEMENT Member Subscriber Plan / Payer (Ef fective 2005-Present) Name:Mercedez Ybarra Relation to Subscriber:Self Name:Mercedez Ybarra Payer ID:Not on file Group ID:Not on file Type:Indemnity Address: [address] MEDICARE SUPPLEMENT Advance Directives For more information, please contact: [phone] (9AM - 5PM [facility], Friday-Friday) Documents on File Type Date Recorded Patient Fruit Dryer Expl anation Healthcare Proxy 03/25/2022 2:49 PM Care Teams Turfgrass Technician Relationship Specialty Start Date End Date Yogi Sawyer MD PCP - General Internal Medicine 02/22/22 Additional Source Comments The information contained in this document represents components of the legal health record. It is not the complete legal health record.[facility]
--- OUTSIDE RECORDS SUMMARY | 2025-07-29 11:40 | XMS_ITS | Encounter Summary ---
Author Organization [facility] Address [address] [address] Phone Care Team Providers Care Steamfitter Supervisor Name Role Phone Yogi Sawyer MD Primary Care Provider [phone] Encounter Details Date Type Department Care Team (Late st Contact Info) Description 03/22/2022 Procedure Pass OR Admitting Dept - Virtual Department [address] [place] [address] Social History Tobacco Use Types Packs/Day Years [...] on filedocumented in this encounter Care Teams Steamfitter Supervisor Relationship Specialty Start Date End Date Yogi Sawyer MD PCP - General Internal Medicine 02/22/22 documented as of this encounter Additional Source Comments The information contained in this document represents components of the legal health record. It is not the complete legal health record.[facility]
--- OUTSIDE RECORDS SUMMARY | 2025-07-29 11:40 | XMS_ITS | Patient Health Record ---
Author Organization [facility] Address [address] [place] [address] Care Team Providers Care Sales Team Recruiter Name Role Phone None, None Primary Care Provider Unavailabl e Reason For Referral No Information Plan Of Treatment No Information Insurance Providers Payer Name Payer Address Payer Phone Subscriber Number Group Number Insured Name Patient Relationship to Insured Coverage Start Date Coverage End Date ZZ DO NOT USE MEDICARE NON PAR [id number] Mercedez Hirsch Self - patient is the insured 0 [facility] [address] [place], [place] [id number] [phone] [id number] Merceedz Hirsch Self - patient is the insured 0
--- OUTSIDE RECORDS SUMMARY | 2025-07-29 11:40 | XMS_ITS | Encounter Summary ---
Author Organization [facility] Address [address] [place] [address] Phone Care Team Providers Care Maintenance Mechanic Supervisor Name Role Phone Yogi Sawyer MD Primary Care Provider [phone] Encounter Details Date Type Department Care Team (Late st Contact Info) Description 03/05/2022 Ancillary Orders [address] [address] Nicol Valenzuela PA-C [address] [place] [address] Orthopedics & Sports Medicine, [place] [address] [email or web address] Injury of [...] encounter documented in this encounter Care Teams Maintenance Mechanic Supervisor Relationship Specialty Start Date End Date Yogi Sawyer MD PCP - General Internal Medicine 02/22/22 documented as of this encounter Additional Source Comments The information contained in this document represents components of the legal health record. It is not the complete legal health record.[facility]
--- OUTSIDE RECORDS SUMMARY | 2025-07-29 11:40 | XMS_ITS | Encounter Summary ---
Author Organization [facility] Address [address] [place] [address] Phone Care Team Providers Care Quality Control Checker Name Role Phone Yogi Sawyer MD Primary Care Provider Encounter Details Date Type Department Care Team (Late st Contact Info) Description 03/05/2022 Ancillary Orders [facility] [address] [place] [address] Nicol Valenzuela PA-C [address] [place] [address] Orthopedics & Sports Medicine, [facility] [place] [address] [email or web address] Social History Tobacco Use Types Packs/Day Years [...] filedocumented in this encounter Care Teams Quality Control Checker Relationship Specialty Start Date End Date Yogi Sawyer MD PCP - General Internal Medicine 02/22/22 documented as of this encounter Additional Source Comments The information contained in this document represents components of the legal health record. It is not the complete legal health record.[facility]
--- OUTSIDE RECORDS SUMMARY | 2025-07-29 11:40 | XMS_ITS | Patient Health Record ---
Author Organization [facility] Address [address] [place] [address] Care Team Providers Care Tube Splicer Name Role Phone Nicol Steve MD Primary Care Provider Joanna Brown Unavailable [phone] Allergies Allergen (clinical drug ingredient) Drug/Non Drug [...] Problem Acquired hammer toe of right foot (8585916511979467) Hammer toe of right foot (M20.41) Active confirmed Problem Acquired hammer toe of left foot (5972592314415088) Hammer toe of left foot (M20.42) Active confirmed Problem Bilateral atherosclerosis of arteries of lower limbs (disorder) (14549618137768601 ) Atherosclerosis of artery of both lower extremities (I70.203) Active confirmed Vital Signs Blood pressure diastolic 83 mm Hg 06/27/2025 Height 5ft 6in in 06/27/2025 Blood pressure systolic 128 mm Hg 06/27/2025 Weight 222 lbs 06/27/2025 BMI 35.83 kg/m2 06/27/2025 Encounters Encounter Location Date Provider Diagnosis [facility] [place] [address] 08/05/2024 Joanna Pedro Atherosclerosis of artery of both lower extremities I70.203 ; Tinea unguium B35.1 ; Pain in toe of left foot M79.675 and Pain in toe of right foot M79.674 [facility] [address] [place] [address] 10/18/2024 Joanna Perica Atherosclerosis of artery of both lower extremities I70.203 ; Tinea unguium B35.1 ; Pain in toe of left foot M79.675 and Pain in toe of right foot M79.[address] [place] [address] 12/27/2024 Joanna Pedro Atherosclerosis of artery of both lower extremities I70.203 ; Tinea unguium B35.1 ; Pain in toe of left foot M79.675 and Pain in toe of right foot M79.[address] [address] 06/27/2025 Joanna Perica Atherosclerosis of artery of both lower extremities I70.203 ; Tinea unguium B35.1 ; Pain in toe of left foot M79.675 and Pain in toe of right foot M79.[address] [address] 02/24/2025 Joanna Pedro Assessments Encounter Date Diagnosis [...] Provider Name:Joanna fernandez, 09/21/2025 01:30:00 PM, [address] [place], [address], Insurance Providers Payer Name Payer Address Payer Phone Subscriber Number Group Number Insured Name Patient Relationship to Insured Coverage Start Date Coverage End Date Medicare National [employer] [address] [place] [address] [id number] Mercedez Hirsch Self - patient is the insured [email or web address] [address] [place] [address] [id number] Mike Hirsch Spouse - patient is the spouse of the insured Medical (General) History Medical History History ICD Code osteoarthritis Back pain/Sciatica Cataracts Depression Diverticulosis Gall bladder problems Headaches High blood pressure Sciatica Measles Mumps Chicken pox Surgical History Surgery Date(Month/Year) cholecystectomy 1992 Breast Surgery, cyst knee surgery 03/15/25
== END 2025-07-27 10:53 | disposition home or self-care (01) ==
LOC: HO.HOSX 10:52
PROVIDERS: Visit Provider Physician Assistant
DX: Z01.818 Encounter for other preprocedural examination (principal); M17.11 Unilateral primary osteoarthritis, right knee
CPT/HCPCS: 73562